=== PATIENT | female | born 1935 | race Caucasian/White ===

== ENCOUNTER 2020-01-21 15:34 | Emergency (ER) | payer MEDICARE, SELFPAY ==
[2020-01-21 15:42] VITALS: BP 110/67; PULSE 80; RESP 17; TEMP 36.9; O2SAT 93; BMI 14.8
--- NOTE | 2020-01-21 15:45 | ED_ITS ---
HPI - Abdominal Pain General: Chief Complaint: Urogenital-Female Stated Complaint: UTI Time Seen by Provider: 01/21/20 15:37 History of Present Illness: HPI narrative: 84-year-old female comes in complaining of she not been able to urinate today denies any flank pain denies any difficulty breathing denies any nausea vomiting diarrhea. No previous history of recurrent UTIs or kidney stones. Patient reports he tried to drink 2 beers to get herself to urinate but that did not work so she came to the emergency room. MD elicited complaint: abdominal pain Location: Suprapubic Severity: mild Quality: cramping Radiation: none Migration to: no migration Exacerbating factors: nothing Relieving factors: nothing Associated Symptoms: Reports no associated symptoms; Denies bloating, chills, coffee ground emesis, constipation, diarrhea, dysuria, fever(s), hematochezia, hematemesis, melena, nausea and vomiting Review of Systems Const: Denies: fever, chills, body aches, change in appetite, fatigue or malaise ENMT: Denies: throat pain, ear pain, nasal discharge or nasal congestion Card: Denies: chest pain, edema, shortness of breath on exertion or shortness of breath when lying down Resp: Denies: shortness of breath, productive cough or non-productive cough GI: Denies: abdominal pain, nausea, vomiting, vomiting blood, coffee grounds in vomit, diarrhea, constipation, bloating, blood in stool or black tarry stool : Reports: difficulty urinating; Denies: flank pain, painful urination, urinary frequency or urinary urgency Skin/Breast: Denies: rash or itching PFS ED PFSH: Social History Smoking and tobacco status: current every day smoker Physical Exam Const: COMMON NORMALS: no apparent distress GENERAL APPEARANCE: cooperative and comfortable ORIENTATION/CONSCIOUSNESS: Yes awake, Yes oriented to person, Yes oriented to place and Yes oriented to time HENMT: COMMON NORMALS: normocephalic, head/scalp atraumatic, hearing grossly normal bilaterally, external ears normal, nasal mucous membranes and turbinates normal, moist oral mucous membranes and oropharynx normal HEAD & SCALP: normocephalic and atraumatic NOSE: nasal mucous membranes and turbinates normal EXTERNAL EAR: Yes external ears normal Eye: COMMON NORMALS: PERRL, EOMs intact bilaterally, conjunctivae normal and no scleral icterus CONJUNCTIVA: Yes conjunctivae normal PUPIL: Yes PERRL Neck/C-Spine: COMMON NORMALS: full ROM, no lymphadenopathy, supple and no JVD Lymph: LYMPHATIC: no lymphadenopathy noted and no lymphedema noted Resp: COMMON NORMALS: normal respiratory effort, no retractions, no use of accessory muscles and clear to auscultation bilaterally AUSCULTATION: clear to auscultation bilaterally Cardio: COMMON NORMALS: no JVD, regular rate, regular rhythm and no murmurs RATE: regular rate RHYTHM: regular rhythm GI: COMMON NORMALS: soft to palpation and no hepatosplenomegaly AUSCULTATION: Yes normoactive bowel sounds PALPATION: Yes soft, No tender, No guarding and Yes no hepatosplenomegaly Extremity: COMMON NORMALS: normal to inspection, normal capillary refill, no clubbing, cyanosis or edema, no calf tenderness and no pedal edema Neuro: SENSORIUM/ORIENTATION: Yes oriented to person, Yes oriented to place and Yes oriented to time Skin: COMMON NORMALS: no rashes or lesions noted GENERAL SKIN EXAM: no rashes or lesions noted Course Vital Signs: Vital signs: Vital Signs Temperature 98.4 F 01/21/20 15:42 Pulse Rate 80 01/21/20 15:46 Respiratory Rate 16 01/21/20 17:02 Blood Pressure 110/67 01/21/20 15:42 Pulse Oximetry 93 01/21/20 15:42 MDM - Abdominal Pain Lab Data: Attestation: I reviewed the patient's lab results. Labs: Lab Results 01/21/20 01/21/20 01/21/20 Range/Units 15:52 15:52 16:55 WBC 8.4 (4.0-10.0) 10^3/ uL RBC 3.97 L (4.1-5.3) 10^6/u L Hgb 12.9 (11.5-15.3) g/dL Hct 40.1 (37.0-47.0) % MCV 101.0 H (81-99) fL MCH 32.5 (28.0-34.0) pg MCHC 32.2 (30.0-36.0) g/dL RDW 12.5 (12.1-15.1) % Plt Count 161 (130-400) 10^3/c mm MPV 10.2 (7.4-10.4) fL Neut % (Auto) 59.4 % Lymph % (Auto) 27.0 % [place] % (Auto) 11.9 % Eos % (Auto) 1.4 % Baso % (Auto) 0.2 % Neut # (Auto) 5.0 (1.8-7.7) 10^3/u L Lymph # (Auto) 2.3 (0.8-4.8) 10^3/u L [place] # (Auto) 1.0 H (0.2-0.9) 10^3/u L Eos # (Auto) 0.1 (0.0-0.8) 10^3/u L Baso # (Auto) 0.0 (0.0-0.1) 10^3/u L Nucleated RBC % (a uto) 0 % Nucleated RBCs # 0.0 /100WBC Sodium 131 L (136-145) mmol/L Potassium 3.0 L (3.5-5.1) mmol/L Chloride 91 L (98-107) mmol/L Carbon Dioxide 23 (22-29) mmol/L Anion Gap 20.0 H (5-19) BUN 8 (8-23) mg/dL Creatinine 0.5 (0.5-0.9) mg/dL Glucose 95 (65-115) mg/dL Calculated Osmolal ity 268 L (285-295) mOsm/k g Calcium 8.8 (8.5-10.5) mg/dL Urine Color [place] (Yellow) Urine Appearance Sl hazy (CLEAR) Urine pH 5 (5-7) Ur Specific Gravit y 1.010 (1.005-1.030) Urine Protein TNP Urine Glucose (UA) Norm (Normal) Urine Ketones Negative (Negative) Urine Blood 2+ H (Negative) Urine Nitrate TNP Urine Bilirubin TNP Prot Sulfosalicyli c Acd Negative (Negative) Urine Urobilinogen TNP Ur Leukocyte Kelsea ase 1+ H (Negative) Urine RBC 5-10 H (0-2) /hpf Urine WBC 40-55 H (0-5) /hpf Ur Squamous Epith Cells 0-4 H (0-5) Ur Transition Epit h Cell 0-4 /hpf Urine Bacteria 4+ H (NONE) Urine Mucus 1+ Discharge Plan Discharge Patient Disposition: Home, Self-Care Clinical Impression: Cystitis Condition: Stable Prescriptions: New Macrobid 100 mg capsule 100 mg PO BID 7 Days Qty: 14 RF: 0 Discharge Orders: Discharge Order (Routine); Ordered 01/21/20 Ordered By: Gordo Santillan Referrals: Max Curtis DO [Primary Care Provider] - Discharge Diet: Usual diet Discharge Activity: Resume usual activity Interventions: ED Discharge Assessment Last Done: 01/21/20 17:45 Coding Level of Care Code ED Television Mechanic for Chg Fwd Exam Comprehensive
[2020-01-21 15:46] VITALS: PULSE 80; RESP 17
[2020-01-21 15:58] LABS: Basophils % 0.2 %; Eosinophils # 0.1 10^3/uL (0.0-0.8); Eosinophils % 1.4 %; Hematocrit 40.1 % (37.0-47.0); Hemoglobin 12.9 g/dL (11.5-15.3); Lymphocytes # 2.3 10^3/uL (0.8-4.8); Mean Corpuscular HGB Conc 32.2 g/dL (30.0-36.0); Mean Corpuscular Hemoglobin 32.5 pg (28.0-34.0); Mean Platelet Volume 10.2 fL (7.4-10.4); Monocytes % 11.9 %; Neutrophils % 59.4 %; Nucleated Red Blood Cells % 0 %; Platelet Count 161 10^3/cmm (130-400); Red Blood Count 3.97 10^6/uL (4.1-5.3); Red Cell Distribution Width 12.5 % (12.1-15.1); White Blood Count 8.4 10^3/uL (4.0-10.0)
--- NOTE | 2020-01-21 16:17 | PC.NURSE ---
Two attempts for straight catheter unsuccessful. Mercedes Myrick, WILLIE at bedside to assist, unable to locate urethra d/t pt small stature. Second nurse to bedside to attempt. Pt tolerated fair.
[2020-01-21 16:26] LABS: Blood Urea Nitrogen 8 mg/dL (8-23); Calcium 8.8 mg/dL (8.5-10.5); Carbon Dioxide 23 mmol/L (22-29); Chloride 91 mmol/L (98-107); Glucose 95 mg/dL (65-115); Osmolality Calculated 268 mOsm/kg (285-295); Sodium 131 mmol/L (136-145)
--- NOTE | 2020-01-21 16:44 | PC.NURSE ---
Unable to get a successful catheterization on pt, pt was able to get up to BSC and void. Pt urine is orange and cloudy. Specimen obtained, labeled and sent to lab. Pt bladder scanned and shows 193ml PVR. Dr Santillan updated.
[2020-01-21 17:02] VITALS: RESP 16
[2020-01-21 17:25] LABS: Urine Appearance SL Hazy (CLEAR); Urine Color Orange (Yellow)
[2020-01-21 17:27] LABS: Blood Urine 2+ (Negative); Glucose Urine UA Norm (Normal); Ketones Urine Negative (Negative); Leukocyte Esterase Urine 1+ (Negative); pH Urine 5 (5-7)
[2020-01-21 17:28] LABS: Add Urine Microscopic? YES; Sulfosalicylic Acid Urine Negative (Negative)
[2020-01-21 17:29] LABS: Bacteria Urine 4+; Mucus Urine 1+; Squamous Epithelial Cell Urine 0-4 (0-5)
[2020-01-21 17:30] LABS: Add Urine Culture? Yes; Transitional Epi Cells Urine 0-4 /hpf; WBC Urine 40-55 /hpf (0-5)
== END 2020-01-21 17:51 | disposition home or self-care (01) ==
PROVIDERS: Emergency Medicine; Emergency Provider Family Medicine; Family Provider Electrodiagnostic Medicine; PCP Electrodiagnostic Medicine
DX: N30.90 Cystitis, unspecified without hematuria (principal); F17.200 Nicotine dependence, unspecified, uncomplicated
CPT/HCPCS: 12345; 36415; 51701; 51798; 80048; 81001; 85025; 87077; 87086; 87186; 99283

== ENCOUNTER 2020-02-15 13:33 | Inpatient (IN) | payer MEDICARE, SELFPAY ==
[2020-02-15] VITALS (8 sets, daily range): BP systolic 83–109; BP diastolic 46–65; PULSE 70–89; RESP 16–18; TEMP 36.6–37.1; O2SAT 90–95; BMI 15.0
--- NOTE | 2020-02-15 13:54 | CT_ITS ---
WS: [id number] CT HEAD NONCONTRAST HISTORY: fall TECHNIQUE: Contiguous axial imaging performed through the brain in 2.5 mm imaging. Bone and soft tiss ue windows. Sagittal and coronal reformats reviewed. All CT scans at [facility] use at ast one of these dose optimization techniques: automated exposure control; mA and/or kV adjustment pe r patient size (includes targeted exams where dose is matched to clinical indication); or iterative r econstruction. DLP: 660.86 mGy.cm COMPARISON: 09/07/2018 No acute intracranial hemorrhage, midline shift or mass effect. Moderate to severe atrophy is symmetric bilaterally with severe chronic white matter disease. No prio r infarcts. No loss of the cabezas-white matter differentiation. Ventricles: Normal size with no hydrocephalus. No inferior displacement of cerebellar tonsils. Paranasal sinuses: As visualized are clear. Mastoid air cells: Small amount of fluid in the RIGHT mastoid air cells. Cerumen in the RIGHT externa l auditory canal. Calvarium and scalp: Defect within the RIGHT temporal bone was present on the prior study and not an acute fracture. Bilateral TM joint arthritis. CT/CT head wo con* [id number] IMPRESSION: 1. No acute intracranial hemorrhage or edema. 2. Moderate to severe atrophy and chronic ischemic disease. 3. No skull fracture.
--- NOTE | 2020-02-15 13:54 | XR_ITS ---
WS: [id number] PORTABLE CHEST HISTORY: fall COMPARISON: 08/06/2019 Lungs are clear and well expanded. No pleural effusion or pneumothorax. Cardiac size: Normal. Mediastinum/Aorta: Partially calcified aorta. Osteopenia. Fusion hardware at the thoracolumbar junction. XR/XR chest 1V portable [id number] IMPRESSION: Partially calcified thoracic aorta. No pneumonia.
--- NOTE | 2020-02-15 13:54 | CT_ITS ---
WS: [id number] CT CERVICAL SPINE HISTORY: fall TECHNIQUE: Contiguous 2.5 mm axial imaging performed through the entire cervical spine. Sagittal and coronal reformats also performed. All CT scans at [facility] use at least one of these do se optimization techniques: automated exposure control; mA and/or kV adjustment per patient size (inc ludes targeted exams where dose is matched to clinical indication); or iterative reconstruction. DLP: 208.83 mGy.cm COMPARISON: 04/12/2018 Straightening and reversal normal cervical lordosis. Complete loss of the disc space at C4-5, C5-6 a nd C6-7. There is very mild anterior wedging of C4 which is similar to the prior study. C3 anterolist hesis by 4.2 mm. C2 anterolisthesis by 3.0 mm. Cystic changes within the base of the odontoid process . These were present on the prior study with mild progression. No acute fracture is identified. Crani ocervical junction is normally aligned. Severe bilateral facet joint arthritis and endplate osteophytes throughout the cervical spine. Multil evel areas of bilateral foraminal stenosis and central stenosis. Most significant stenosis at C4-5, C 5-6 and C6-7. Biapical pulmonary fibrosis. Incompletely visualized but similar to the prior study of 04/12/[address] [facility] [address]/CT cervical spin wo con* [id number] IMPRESSION: 1. No acute cervical spine fracture identified. 2. Severe multilevel spondylosis. Complete loss of disc space at C4-5, C5-6 an d C6-7. 3. Multilevel severe central and bilateral foraminal stenosis as above.
--- NOTE | 2020-02-15 13:54 | XR_ITS ---
WS: [id number] LEFT HIP HISTORY: injury COMPARISON: 07/05/2017 LEFT hip: Long intramedullary taylor throughout the femur. 2 screws stabilize a femoral neck fracture. N o change in position of the hardware. No acute fracture identified. Acute minimally displaced fractures involving the LEFT superior and inferior pubic rami. Deformity of the LEFT iliac wing is similar to the prior examinations. XR/XR hip LT 2-3V wo/w pel* [id number] IMPRESSION: 1. Status post ORIF LEFT femoral neck fracture. No acute fracture identified L EFT hip. 2. Acute LEFT superior and inferior pubic rami fractures. 3. Deformity of the LEFT ilium is similar to prior studies.
--- NOTE | 2020-02-15 13:56 | ED_ITS ---
HPI - Fall General: Chief Complaint: Fall Stated Complaint: hip pain Time Seen by Provider: 02/15/20 13:51 Source: patient Mode of arrival: ambulatory Limitations: no limitations History of Present Illness: HPI Narrative: 84-year-old female who states she fell roughly 1 hour ago. She states she fell and struck her head and her left hip. She has left hip pain and is unable to ambulate. States the pain is sharp in nature. She has had surgery on that hip in the past. She denies any loss of consciousness. complaint: fall Onset (ago): hour(s) Fall from: standing Fall witnessed: yes, by family Loss of consciousness: None Prolonged down time: no Location of injury: head and pelvis Severity: moderate Associated symptoms-after fall: Denies abdominal pain, chest pain, headache(s) or neck pain Review of Systems Const: Denies: fever, chills, body aches or change in appetite Eyes: Denies: blurry vision or eye discomfort ENMT: Denies: throat pain or dental pain Card: Denies: chest pain Resp: Denies: shortness of breath GI: Denies: abdominal pain, nausea, vomiting or diarrhea : Denies: painful urination Musc: Reports: joint pain; Denies: neck pain or back pain Skin/Breast: Denies: rash Neuro: Denies: headache Psych: Denies: depression Jong/Lymph: Denies: easy bruising All/Imm: Denies: hives PFSH ED PFSH: Medical History (Updated 02/15/20 @ 15:49 by Beto Gupta MD) Alcohol use Chronic back pain COPD (chronic obstructive pulmonary disease) Depression DJD (degenerative joint disease) Macular degeneration Peripheral neuropathy Tobacco dependency Surgical History (Updated 02/15/20 @ 15:30 by Denny Campblel MD) History of appendectomy History of cataract surgery History of hernia surgery History of lumbar fusion History of total abdominal hysterectomy and bilateral salpingo-oophorectomy S/P ORIF (open reduction internal fixation) fracture Left hip Family History (Updated 02/15/20 @ 15:31 by Denny Campbell MD) Father Brain tumor Social History (Updated 02/15/20 @ 15:31 by Denny Campbell MD) Smoking and tobacco status: current every day smoker cigarettes Number of cigarettes per day: 6-10 Alcohol intake: current Alcohol type: beer and hard liquor Alcohol use comment: At least 3-4 beers a day, occasional mixed drinks as well with this Substance/Drug Use: never Physical Exam Const: COMMON NORMALS: no apparent distress, oriented x3 and healthy appearing HENMT: COMMON NORMALS: normocephalic HEAD & SCALP: normocephalic OTHER: forehead contusion Eye: COMMON NORMALS: PERRL and EOMs intact bilaterally PUPIL: Yes PERRL Neck/C-Spine: COMMON NORMALS: full ROM and supple Chest: COMMONS NORMALS: inspection of chest normal and palpation of chest normal Resp: COMMON NORMALS: normal respiratory effort, no retractions, no use of accessory muscles and clear to auscultation bilaterally AUSCULTATION: clear to auscultation bilaterally Cardio: COMMON NORMALS: regular rate, regular rhythm and no murmurs RATE: regular rate RHYTHM: regular rhythm GI: COMMON NORMALS: normal to inspection, nondistended, normoactive bowel sounds, soft to palpation, non-tender and no masses PALPATION: Yes soft Extremity: NARRATIVE EXTREMITY EXAM: tenderness over left hip Neuro: COMMON NORMALS: oriented x3, moves all extremities and no focal motor deficits Psych: COMMON NORMALS: mental status grossly normal, thought process normal and cooperative THOUGHT PROCESS: normal thought process Skin: COMMON NORMALS: no rashes or lesions noted and no wounds GENERAL SKIN EXAM: no rashes or lesions noted Course Vital Signs: Vital signs: Vital Signs Temperature 97.8 F 02/15/20 13:49 Pulse Rate 70 02/15/20 13:49 Respiratory Rate 18 02/15/20 14:16 Blood Pressure 109/57 02/15/20 13:49 Pulse Oximetry 95 02/15/20 13:49 MDM - Fall MDM Narrative: Medical decision making narrative: Patient presents here with pelvic rami fracture after a fall. Patient's head CT and C-spine CT are negative. Patient's chest x-ray is negative as well. Patient is unable to ambulate at this time. I spoke to hospitalist Dr. Campbell who will admit hospital spoke to orthopedic Dr. Cardenas who is consulted. Lab Data: Labs: Lab Results 02/15/20 02/15/20 Range/Units 14:42 14:42 WBC 7.5 (4.0-10.0) 10^3/ uL RBC 4.05 L (4.1-5.3) 10^6/u L Hgb 13.0 (11.5-15.3) g/dL Hct 41.2 (37.0-47.0) % MCV 101.7 H (81-99) fL MCH 32.1 (28.0-34.0) pg MCHC 31.6 (30.0-36.0) g/dL RDW 13.1 (12.1-15.1) % Plt Count 158 (130-400) 10^3/c mm MPV 10.4 (7.4-10.4) fL Neut % (Auto) 61.3 % Lymph % (Auto) 26.5 % [place] % (Auto) 7.7 % Eos % (Auto) 3.2 % Baso % (Auto) 0.5 % Neut # (Auto) 4.6 (1.8-7.7) 10^3/u L Lymph # (Auto) 2.0 (0.8-4.8) 10^3/u L [place] # (Auto) 0.6 (0.2-0.9) 10^3/u L Eos # (Auto) 0.2 (0.0-0.8) 10^3/u L Baso # (Auto) 0.0 (0.0-0.1) 10^3/u L Nucleated RBC % (a uto) 0 % Nucleated RBCs # 0.0 /100WBC Sodium 140 (136-145) mmol/L Potassium 3.7 (3.5-5.1) mmol/L Chloride 101 (98-107) mmol/L Carbon Dioxide 29 (22-29) mmol/L Anion Gap 13.7 (5-19) BUN 10 (8-23) mg/dL Creatinine 0.8 (0.5-0.9) mg/dL Glucose 101 (65-115) mg/dL Calculated Osmolal ity 286 (285-295) mOsm/k g Calcium 9.5 (8.5-10.5) mg/dL Imaging Data^: xr l hip: Radiologist's impression: [address] [address] XRay Report Signed Patient: Erin Sage Unit #: [id number] : 1935 Age/Sex: 84 / F ADM Date: 02/15/20 Loc: ER Room/Bed: Attending Dr: Ordering Provider/Ordering MD: Beto Gupta MD Date of Service: 02/15/20 Procedure(s): XR hip LT 2-3V wo/w pel* [id number] Accession Number(s): [id number] Report Number: [id number] WS: [id number] LEFT HIP HISTORY: injury COMPARISON: 07/05/2017 LEFT hip: Long intramedullary taylor throughout the femur. 2 screws stabilize a femoral neck fracture. No change in position of the hardware. No acute fracture identified. Acute minimally displaced fractures involving the LEFT superior and inferior pubic rami. Deformity of the LEFT iliac wing is similar to the prior examinations. XR/XR hip LT 2-3V wo/w pel* [id number] IMPRESSION: 1. Status post ORIF LEFT femoral neck fracture. No acute fracture identified LEFT hip. 2. Acute LEFT superior and inferior pubic rami fractures. 3. Deformity of the LEFT ilium is similar to prior studies. CXR: Radiologist's impression: [place] [address] XRay Report Signed Patient: Erin Sage Unit #: [id number] : 1935 Age/Sex: 84 / F ADM Date: 02/15/20 Loc: ER Room/Bed: Attending Dr: Ordering Provider/Ordering MD: Beto Gupta MD Date of Service: 02/15/20 Procedure(s): XR chest 1V portable [id number] Accession Number(s): [id number] Report Number: [id number] WS: [id number] PORTABLE CHEST HISTORY: fall COMPARISON: 08/06/2019 Lungs are clear and well expanded. No pleural effusion or pneumothorax. Cardiac size: Normal. Mediastinum/Aorta: Partially calcified aorta. Osteopenia. Fusion hardware at the thoracolumbar junction. XR/XR chest 1V portable [id number] IMPRESSION: Partially calcified thoracic aorta. No pneumonia. CT Head: Radiologist's impression: [address] [place] [address] CT Scan Report Signed Patient: Erin Sage Unit #: [id number] : 1935 Age/Sex: 84 / F ADM Date: 02/15/20 Loc: ER Room/Bed: Attending Dr: Ordering Provider/Ordering MD: Beto Gupta MD Date of Service: 02/15/20 Procedure(s): CT head wo con* [id number] Accession Number(s): [id number] Report Number: [id number] WS: [id number] CT HEAD NONCONTRAST HISTORY: fall TECHNIQUE: Contiguous axial imaging performed through the brain in 2.5 mm imaging. Bone and soft tissue windows. Sagittal and coronal reformats reviewed. All CT scans at [facility] use at least one of these dose optimization techniques: automated exposure control; mA and/or kV adjustment per patient size (includes targeted exams where dose is matched to clinical indication); or iterative reconstruction. DLP: 660.86 mGy.cm COMPARISON: 09/07/2018 No acute intracranial hemorrhage, midline shift or mass effect. Moderate to severe atrophy is symmetric bilaterally with severe chronic white matter disease. No prior infarcts. No loss of the cabezas-white matter differentiation. Ventricles: Normal size with no hydrocephalus. No inferior displacement of cerebellar tonsils. Paranasal sinuses: As visualized are clear. Mastoid air cells: Small amount of fluid in the RIGHT mastoid air cells. Cerumen in the RIGHT external auditory canal. Calvarium and scalp: Defect within the RIGHT temporal bone was present on the prior study and not an acute fracture. Bilateral TM joint arthritis. CT/CT head wo con* [id number] IMPRESSION: 1. No acute intracranial hemorrhage or edema. 2. Moderate to severe atrophy and chronic ischemic disease. 3. No skull fracture. cspine: Radiologist's impression: [address] [place] [address] CT Scan Report Signed Patient: Erin Sage Unit #: [id number] : 1935 Age/Sex: 84 / F ADM Date: 02/15/20 Loc: ER Room/Bed: Attending Dr: Ordering Provider/Ordering MD: Beto Gupta MD Date of Service: 02/15/20 Procedure(s): CT cervical spin wo con* [id number] Accession Number(s): [id number] Report Number: [id number] WS: [id number] CT CERVICAL SPINE HISTORY: fall TECHNIQUE: Contiguous 2.5 mm axial imaging performed through the entire cervical spine. Sagittal and coronal reformats also performed. All CT scans at [facility] use at least one of these dose optimization techniques: automated exposure control; mA and/or kV adjustment per patient size (includes targeted exams where dose is matched to clinical indication); or iterative reconstruction. DLP: 208.83 mGy.cm COMPARISON: 04/12/2018 Straightening and reversal normal cervical lordosis. Complete loss of the disc space at C4-5, C5-6 and C6-7. There is very mild anterior wedging of C4 which is similar to the prior study. C3 anterolisthesis by 4.2 mm. C2 anterolisthesis by 3.0 mm. Cystic changes within the base of the odontoid process. These were present on the prior study with mild progression. No acute fracture is identified. Craniocervical junction is normally aligned. Severe bilateral facet joint arthritis and endplate osteophytes throughout the cervical spine. Multilevel areas of bilateral foraminal stenosis and central stenosis. Most significant stenosis at C4-5, C5-6 and C6-7. Biapical pulmonary fibrosis. Incompletely visualized but similar to the prior study of 04/12/[address]/CT cervical spin wo con* [id number] IMPRESSION: 1. No acute cervical spine fracture identified. 2. Severe multilevel spondylosis. Complete loss of disc space at C4-5, C5-6 and C6-7. 3. Multilevel severe central and bilateral foraminal stenosis as above. Discharge Plan Discharge Patient Disposition: Admitted As Inpatient Clinical Impression: Fall Qualifiers: Encounter type: initial encounter Qualified Code(s): W19.XXXA - Unspecified fall, initial encounter Bilateral fracture of pubic rami Qualifiers: Encounter type: initial encounter Fracture type: closed Qualified Code(s): S32.591A - Other specified fracture of right pubis, initial encounter for closed fracture Condition: Stable Referrals: Max Curtis, [Primary Care Provider] - Coding Level of Care Code ED [employer] Consultant for Chg Fwd Exam Comprehensive
[2020-02-15] MEDS: morphine 4 mg/mL SDV 1 mL IVP (14:16)
[2020-02-15 14:51] LABS: Basophils % 0.5 %; Eosinophils # 0.2 10^3/uL (0.0-0.8); Eosinophils % 3.2 %; Hematocrit 41.2 % (37.0-47.0); Lymphocytes % 26.5 %; Mean Corpuscular HGB Conc 31.6 g/dL (30.0-36.0); Mean Corpuscular Hemoglobin 32.1 pg (28.0-34.0); Mean Corpuscular Volume 101.7 fL (81-99); Mean Platelet Volume 10.4 fL (7.4-10.4); Monocytes # 0.6 10^3/uL (0.2-0.9); Monocytes % 7.7 %; Neutrophils # 4.6 10^3/uL (1.8-7.7); Neutrophils % 61.3 %; Nucleated Red Blood Cells % 0 %; Platelet Count 158 10^3/cmm (130-400); Red Blood Count 4.05 10^6/uL (4.1-5.3); Red Cell Distribution Width 13.1 % (12.1-15.1); White Blood Count 7.5 10^3/uL (4.0-10.0)
[2020-02-15 15:03] LABS: Anion Gap 13.7 (5-19); Blood Urea Nitrogen 10 mg/dL (8-23); Calcium 9.5 mg/dL (8.5-10.5); Carbon Dioxide 29 mmol/L (22-29); Chloride 101 mmol/L (98-107); Glucose 101 mg/dL (65-115); Osmolality Calculated 286 mOsm/kg (285-295); Potassium 3.7 mmol/L (3.5-5.1); Sodium 140 mmol/L (136-145)
[2020-02-15 15:10] LABS: Slide Review Slide Review Perform
--- NOTE | 2020-02-15 15:24 | P.HP_ITS ---
Providers/Chief Complaint Primary Care Provider: Max Curtis DO Chief Complaint: hip pain History of Present Illness Erin Sage is a 84 year old female that presents to the hospital with history of fall, approximately at noon. She reports she fell over a step falling on the ground outside. She denies any loss of consciousness. She does report she hit her head. She denies any head pain or neck pain currently. She denies any chest pain. She does report that her left groin hurts. She reports it radiates a little bit down her leg. She reports increased pain with trying to bear weight, moving the left leg. She denies any recent fevers. She did have an ER visit on January 20 for UTI. She denies any burning with urination currently. She states she has been not eating quite as well as she should. She tries to drink fluids. She does drink a fair amount of alcohol. No exposure to COVID, cough, wheezing, etc. Review of Systems General: Reports: 10 or more systems reviewed and unremarkable except in HPI a nd below Const: Denies: fever or chills Eyes: Denies: change in vision ENMT: Denies: throat pain Card: Denies: chest pain Resp: Denies: shortness of breath GI: Denies: abdominal pain : Denies: flank pain or difficulty urinating Musc: Reports: extremity pain; Denies: neck pain Neuro: Denies: headache Psych: Denies: anxiety Endo: Denies: excessive urination Jong/Lymph: Denies: easy bruising All/Imm: Denies: hives Medications/Allergies Home Medications Medication Instructions Recorded Confirmed Last Taken Type citalopram 20 mg PO DAILY 02/15/20 02/15/20 Unknown History gabapentin 600 mg PO QID 02/15/20 02/15/20 02/15/20 History Allergies Allergy/AdvReac Type Severity Reaction Status Date / Time No Known Allergies Allergy Verified 01/21/20 15:45 PFSH Acute PFSH: Medical History (Updated 02/15/20 @ 15:34 by Denny Campbell MD) Alcohol use Chronic back pain COPD (chronic obstructive pulmonary disease) Depression DJD (degenerative joint disease) Macular degeneration Peripheral neuropathy Tobacco dependency Surgical History (Updated 02/15/20 @ 15:30 by Denny Campbell MD) History of appendectomy History of cataract surgery History of hernia surgery History of lumbar fusion History of total abdominal hysterectomy and bilateral salpingo-oophorectomy S/P ORIF (open reduction internal fixation) fracture Left hip Family History (Updated 02/15/20 @ 15:31 by Denny Campbell MD) Father Brain tumor Social History (Updated 02/15/20 @ 15:31 by Denny Campbell MD) Smoking and tobacco status: current every day smoker cigarettes Number of cigarettes per day: 6-10 Alcohol intake: current Alcohol type: beer and hard liquor Alcohol use comment: At least 3-4 beers a day, occasional mixed drinks as well with this Substance/Drug Use: never Vitals/I&O/Wt Last Vital Signs Temp 97.8 F 02/15/20 13:49 Pulse 70 02/15/20 13:49 Resp 18 02/15/20 14:16 BP 109/57 02/15/20 13:49 Pulse Ox 95 02/15/20 13:49 Weight last 48 hrs Weight 34.927 kg Physical Exam Narrative: EXAM NARRATIVE: General exam is a conversant, pleasant white female with complaints of left hip pain but in no obvious distress HEENT: Pupils equally round. Arcus senilis is seen. Oropharynx is clear. Small laceration noted forehead. Neck is supple no lymphadenopathy or thyromegaly Cardiovascular regular rate and rhythm without murmur, no S3 or S4 Lungs clear no wheezing or crackles Abdomen is soft with positive bowel sounds. No obvious organomegaly was deferred. Calvo noted. Extremities no cyanosis clubbing or edema. Some bruising is noted around the left knee but no significant tenderness. Certainly pain with any movement of the left leg in the left groin. No obvious deformity. Neuro no obvious focal deficits Skin see comments regarding bruising above Data : 02/15/20 14:42 02/15/20 14:42 Other data: Pelvis film demonstrates left inferior and superior pubic rami fracture. Hip prosthesis intact. Chest x-ray with no infiltrate Head CT with moderate to severe atrophy, no fracture or subdural Cervical spine with DJD/foraminal stenosis. No fracture MCV slightly elevated A&P Assessment and plan (1) Pelvic fracture: Left superior and inferior iliac spine fracture. Admission Will need discharge planning evaluation PT and OT evaluations Pain control, morphine, oxycodone, ibuprofen as needed. Monitor for oversedation. Currently she cannot ambulate secondary to pain. Fall precautions Orthopedic consultation has been arranged. I doubt surgical intervention is needed. Status: Acute (2) Fall: Therapy evaluations May need skilled care. Will evaluate Check urinalysis Status: Acute (3) Tobacco dependency: Encourage cessation Status: Acute (4) Alcohol use: Thiamine Check B12 level, folate level secondary to macrocytosis. Check TSH Status: Acute Additional A&P Information Laceration, forehead, outside in a relatively dirty environment. Nursing will clean wound. Tetanus booster. History of peripheral neuropathy History of COPD with no evidence of exacerbation. DuoNeb as needed Advanced age Multiple other medical problems as outlined in past medical history SCDs Full code Avoid anticoagulation currently secondary to acute pelvic fracture Attestations Medical Necessity Statement*: Will need greater than 2 midnight stay for evaluation and treatment of Rl fracture following fall requiring therapy evaluation, pain control. Time Spent in Patient Care: Greater than 35 minutes Coding Level of Care Code Acute Balance Bridge Inspector for [facility] Fwd Diagnoses Pelvic fracture S32.9XXA Fall W19.XXXA Tobacco dependency F17.200 Alcohol use Z72.89
[2020-02-15] MEDS: tetanus-diphtheria tox (adult) 0.5 mL SDV IM (15:42)
[2020-02-15 16:05] LABS: Thyroid Stimulating Hormone 7.98 uIU/mL (0.27-4.20); Vitamin B12 308 pg/mL (232-1245)
[2020-02-15 16:21] LABS: Alanine Aminotransferase 16 U/L (0-33); Albumin Level 4.5 g/dL (3.5-5.2); Alkaline Phosphatase 83 IU/L (35-105); Aspartate Amino Transferase 24 U/L (0-32); Globulin 2.1 g/dL (1.3-4.6); Total Bilirubin 0.5 mg/dL (0.15-1.2); Total Protein 6.6 g/dL (6.6-8.7)
[2020-02-15 16:26] LABS: Protein Urine Neg (Negative); Specific Gravity, Urine 1.005 (1.005-1.030); Urine Appearance Clear (CLEAR); Urine Color Yellow (Yellow); pH Urine 7 (5-7)
[2020-02-15 16:27] LABS: Add Urine Culture? No; Bacteria Urine 1+; Bilirubin Urine Neg (NEGATIVE); Blood Urine 3+ (Negative); Glucose Urine UA Norm (Normal); Ketones Urine Negative (Negative); Leukocyte Esterase Urine Negative (Negative); Nitrate Urine Negative (Negative); Renal Epithelial Cells Urine 0-4 /hpf; Squamous Epithelial Cell Urine 0-4 (0-5); Urobilinogen Urine Norm (Negative); WBC Urine 0-4 /hpf (0-5)
[2020-02-15] MEDS: oxyCODONE-APAP 5-325 mg Tablet 1 TAB PO (18:18)
[2020-02-15] MEDS: gabapentin 300 mg Capsule 600 MG PO (20:39)
[2020-02-15] MEDS: morphine 4 mg/mL SDV 1 mL 2 MG IVP (21:30)
[2020-02-15] MEDS: ibuprofen 200 mg Tablet 400 MG PO (23:20)
[2020-02-16] VITALS (10 sets, daily range): BP systolic 87–120; BP diastolic 52–62; PULSE 68–80; RESP 16–24; TEMP 36.4–37.5; O2SAT 90–97
[2020-02-16] MEDS: oxyCODONE-APAP 5-325 mg Tablet 1 TAB PO ×4 (04:28→22:47)
[2020-02-16 05:18] LABS: Folate Level 8.4 ng/mL (4.8-37.3)
--- NOTE | 2020-02-16 08:01 | PM.CONSULT ---
Providers/Reason For Consult Consulting Physican/Specialty*: Jose Mccallumhseferino PRUITT Orthopedic surgery Reason for Consult*: Pelvic fracture Attending Physician: Denny Campbell MD Primary Care Provider: Max Curtis DO History of Present Illness History of Present Illness Erin Sage is a 84 year old female who lives at home with her son. She fell at home and sustained a left-sided inferior superior pubic ramus fractures. She had a history of intramedullary nailing of intertrochanteric fracture of her left hip approximately 6 years ago. She has a fracture of her left wrist that she sustained 3 or 4 years ago and has a residual deformity. Despite the deformity of her left wrist that she is able to weight-bear on that wrist using a walker. At rest at the present time she has minimal discomfort. No attempts have been made to work on transfer training. She states that she has a walker at home. The bathroom that she uses is approximately 10 feet from her bed. If at all possible she would prefer not going to a senior living facility. Review of Systems Const: Denies: fever or chills Card: Denies: chest pain, syncope or shortness of breath when lying down Resp: Denies: shortness of breath or productive cough GI: Denies: abdominal pain, nausea or vomiting Musc: Reports: other (Pain in area of her pelvic fracture which is mild at the present time while at bedrest) Psych: Denies: anxiety or change in appetite Meds/Allergies Home Medications and Allergies Home Medications Medication Instructions Recorded Confirmed Last Taken Type citalopram 20 mg PO DAILY 02/15/20 02/15/20 Unknown History gabapentin 600 mg PO QID 02/15/20 02/15/20 02/15/20 History Allergies Allergy/AdvReac Type Severity Reaction Status Date / Time No Known Allergies Allergy Verified 01/21/20 15:45 Current Medications Current Medications Generic Name Dose Route Start Last Admin Trade Name Freq PRN Reason Stop Dose Admin Gabapentin 600 mg 02/15/20 21:00 02/15/20 20:39 Neurontin PO 600 mg QID JESSICA Administration Ibuprofen 400 mg 02/15/20 17:13 02/15/20 23:20 Motrin PO 400 mg Q6H PRN Administration Mild/Mod Pain Or Temp >/= 101 Morphine Sulfate 2 mg 02/15/20 17:13 02/15/20 21:30 Morphine IVP 2 mg Q4H PRN Administration SEVERE PAIN Oxycodone/Acetaminophen 1 tab 02/15/20 17:13 02/16/20 04:28 Percocet 5-325 Mg PO 1 tab Q4H PRN Administration SEVERE PAIN PFSH Acute PFSH: Medical History Alcohol use Chronic back pain COPD (chronic obstructive pulmonary disease) Depression DJD (degenerative joint disease) Macular degeneration Peripheral neuropathy Tobacco dependency Surgical History History of appendectomy History of cataract surgery History of hernia surgery History of lumbar fusion History of total abdominal hysterectomy and bilateral salpingo-oophorectomy S/P ORIF (open reduction internal fixation) fracture Left hip Family History Father Brain tumor Social History Smoking and tobacco status: current every day smoker cigarettes Number of cigarettes per day: 6-10 Alcohol intake: current Alcohol type: beer and hard liquor Alcohol use comment: At least 3-4 beers a day, occasional mixed drinks as well with this Substance/Drug Use: never Vitals/I&O/Wt Last Vital Signs Temp 99.2 F 02/16/20 07:08 Pulse 79 02/16/20 07:08 Resp 16 02/16/20 07:08 BP 87/52 02/16/20 07:08 Pulse Ox 91 02/16/20 07:08 02/15/20 02/16/20 02/16/20 22:59 06:59 14:59 Intake Total 360 / 360 200 / 560 Balance 360 / 360 200 / 560 Weight last 48 hrs Weight 77 lb Physical Exam Const: COMMON NORMALS: no apparent distress GENERAL APPEARANCE: well kempt; not in distress, not anxious and not lethargic NUTRITIONAL APPEARANCE: thin ORIENTATION/CONSCIOUSNESS: Yes awake; not confused, not obtunded and not lethargic HENMT: COMMON NORMALS: normocephalic, head/scalp atraumatic and hearing grossly normal bilaterally HEAD & SCALP: normal to inspection, normocephalic and atraumatic; no raccoon eyes Neck/C-Spine: COMMON NORMALS: supple and no JVD Resp: COMMON NORMALS: normal respiratory effort, no retractions, no use of accessory muscles and clear to auscultation bilaterally EFFORT & INSPECTION: Yes able to speak in complete sentences AUSCULTATION: clear to auscultation bilaterally Cardio: COMMON NORMALS: no JVD, regular rate, regular rhythm, S1 normal heart sound and S2 normal heart sound RATE: regular rate RHYTHM: regular rhythm HEART SOUNDS: S1 normal and S2 normal GI: COMMON NORMALS: soft to palpation, non-tender and no masses PALPATION: Yes soft Extremity: RIGHT LOWER EXTREMITY: Yes hip joint (No pain with logroll) and Yes lower leg Right lower leg: Yes special tests Right lower leg special tests: Constantin's sign: Negative LEFT LOWER EXTREMITY: Yes hip joint (No pain with logroll) and Yes lower leg Left lower leg: Yes special tests Left lower leg special tests: Constantin's sign: Negative Neuro: SENSORIUM/ORIENTATION: No lethargic Psych: APPEARANCE: Yes well kempt Urinary Catheter Management^: Calvo: Cath Placed During This Visit: yes Reason for Continuing Indwelling Catheter: Required Immobilization for Trauma or Surgery or Anesthesia Urinary Catheter Date of Insertion: 02/15/20 Urinary Catheter Time of Insertion: 15:40 A&P Assessment and plan (1) Pelvic fracture: 84-year-old white female who fell at home sustaining left-sided inferior superior pubic ramus fractures. This constitutes a fracture of the pelvic ring. The fracture can be managed conservatively i.e. without manipulation. Patient will be allowed weightbearing as tolerated. Recommend her following up in the office. Pain control and prevention of constipation is paramount. Patient would like to go home which can potentially be performed with home health aide as well as physical therapy if the family can provide adequate support. Patient would follow-up in the orthopedic clinic in 1 month's time for x-rays of her pelvis. It does not appear that she has any acute injury to her previously stabilized left intertrochanteric hip fracture with a long intramedullary nail. Recommend VTE prophylaxis until she is return to baseline activity from before her injury. Status: Acute (2) Fall: Status: Acute Qualifiers: Encounter type: initial encounter Qualified Code(s): W19.XXXA - Unspecified fall, initial encounter Coding Level of Care Code Acute Warp Dyeing Tender for [facility] Fwd Diagnoses Pelvic fracture S32.9XXA Fall W19.XXXA Encounter type: initial encounter
[2020-02-16] MEDS: citalopram 20 mg Tablet PO (08:09)
[2020-02-16] MEDS: thiamine 100 mg Tablet PO (08:09)
[2020-02-16] MEDS: gabapentin 300 mg Capsule 600 MG PO ×4 (08:14→18:46)
[2020-02-16] MEDS: ibuprofen 200 mg Tablet 400 MG PO ×2 (08:17→20:45)
[2020-02-16] MEDS: ondansetron 2 mg/ML SDV 2 mL 4 MG IVP (09:51)
--- NOTE | 2020-02-16 10:18 | PC.PT ---
Patient needs bedside commode for toileting is unable to ambulate into bathroom, also needs Marques front wheel walker with glide tips to assist with transfers and less and pain of same, and assist with healing; both have been ordered
--- NOTE | 2020-02-16 10:26 | PC.NURSE ---
Patient had emesis of 300. Zofran Iv given. Patient sipped on Sprite and ate two saltine crackers. Patient tolerated, and denied any nausea.
[2020-02-16] MEDS: heparin 5,000 unit/mL INJ 1 mL 5000 UNIT SUBCUT ×2 (11:04→22:47)
--- NOTE | 2020-02-16 19:02 | P.PN_ITS ---
Subjective Subjective: Interval history: Erin reports she is doing okay. She still has some pain but it is improved. Does not want the catheter out yet as she does not believe she can get up and down to the bedside commode. Medications: Reviewed: Yes Vitals/I&O/Wt Last Vital Signs Temp 99.5 F 02/16/20 15:25 Pulse 75 02/16/20 15:25 Resp 24 H 02/16/20 18:37 BP 95/62 02/16/20 15:25 Pulse Ox 92 02/16/20 15:25 02/16/20 02/16/20 02/16/20 06:59 14:59 22:59 Intake Total 200 / 560 100 / 100 240 / 340 Output Total 300 / 300 1000 / 1300 Balance 200 / 560 -200 / -200 -760 / -960 Weight last 48 hrs Weight 34.927 kg Physical Exam Narrative: EXAM NARRATIVE: General exam is no apparent distress Cardiovascular regular rate and rhythm without murmur Lungs clear Abdomen is soft with positive bowel sounds Extremities no cyanosis clubbing or edema Musculoskeletal, still with significant pain with movement of the left leg Urinary Catheter Management^: Calvo: Cath Placed During This Visit: yes Reason for Continuing Indwelling Catheter: Required Immobilization for Trauma or Surgery or Anesthesia Urinary Catheter Date of Insertion: 02/15/20 Urinary Catheter Time of Insertion: 15:40 Data : 02/15/20 14:42 02/15/20 14:42 A&P Assessment and plan (1) Pelvic fracture: Left superior and inferior iliac spine fracture. Continue PT and OT Depending upon performance may need skilled care, versus home with home health and home physical therapy. Discussed in detail with son. Continue oxycodone, ibuprofen, Tylenol as needed. She does not appear to need morphine Appreciate orthopedic consultation, no surgery indicated Status: Acute (2) Fall: Continue therapies Status: Acute Qualifiers: Encounter type: initial encounter Qualified Code(s): W19.XXXA - Unspecified fall, initial encounter (3) Tobacco dependency: Encourage cessation Status: Acute (4) Alcohol use: Continue thiamine B12 normal TSH slightly high consistent with subclinical hypothyroidism Status: Acute Additional A&P Information Laceration, forehead,. No evidence of infection. She received a tetanus booster History of peripheral neuropathy History of COPD with no evidence of exacerbation. DuoNeb as needed Advanced age Multiple other medical problems as outlined in past medical history Full code Heparin for DVT prophylaxis Attestations Medical Necessity Statement*: Needs continued hospitalization, secondary to pain, unsafe for ambulation and transfers at this time. Coding Level of Care Code Acute Stack Yield Engineer for [facility] Fwd Diagnoses Pelvic fracture S32.9XXA Fall W19.XXXA Encounter type: initial encounter Tobacco dependency F17.200 Alcohol use Z72.89
[2020-02-17] VITALS: BP 75/40; PULSE 78; RESP 18; TEMP 37.3; O2SAT 90
[2020-02-17 03:57] VITALS: BP 77/52; PULSE 74; RESP 18; TEMP 36.6; O2SAT 90
[2020-02-17 07:50] VITALS: BP 86/49; PULSE 84; RESP 17; TEMP 37.8; O2SAT 92
[2020-02-17] MEDS: gabapentin 300 mg Capsule 600 MG PO ×4 (08:31→22:34)
[2020-02-17] MEDS: citalopram 20 mg Tablet PO (08:32)
[2020-02-17] MEDS: thiamine 100 mg Tablet PO (08:32)
[2020-02-17] MEDS: heparin 5,000 unit/mL INJ 1 mL 5000 UNIT SUBCUT ×2 (10:47→23:19)
--- NOTE | 2020-02-17 11:13 | P.PN_ITS ---
Subjective Subjective: Interval history: Erin reports she has some pain. No other complaints. Reports she is not eating much but trying to drink. Medications: Reviewed: Yes Vitals/I&O/Wt Last Vital Signs Temp 100.0 F H 02/17/20 07:50 Pulse 84 02/17/20 07:50 Resp 17 02/17/20 07:50 BP 86/49 02/17/20 07:50 Pulse Ox 92 02/17/20 07:50 02/16/20 02/17/20 02/17/20 22:59 06:59 14:59 Intake Total 340 / 440 240 / 240 Output Total 1000 / 1300 350 / 1650 Balance -660 / -860 -350 / -1210 240 / 240 Weight last 48 hrs Weight 34.927 kg Physical Exam Narrative: EXAM NARRATIVE: General exam is no apparent distress Cardiovascular regular rate and rhythm without murmur Lungs clear Abdomen is soft with positive bowel sounds Extremities no cyanosis clubbing or edema Musculoskeletal, still with pain in the left leg with movement Urinary Catheter Management^: Calvo: Cath Placed During This Visit: yes Reason for Continuing Indwelling Catheter: Required Immobilization for Trauma or Surgery or Anesthesia Urinary Catheter Date of Insertion: 02/15/20 Urinary Catheter Time of Insertion: 15:40 Data : 02/15/20 14:42 02/15/20 14:42 A&P Assessment and plan (1) Pelvic fracture: Left superior and inferior iliac spine fracture. Continue PT and OT Depending upon performance may need skilled care, versus home with home health and home physical therapy. Discussed in detail with son. Continue oxycodone, ibuprofen, Tylenol as needed. Appreciate orthopedic consultation, no surgery indicated Discontinue Calvo. Status: Acute (2) Fall: Continue therapies Status: Acute Qualifiers: Encounter type: initial encounter Qualified Code(s): W19.XXXA - Unspecified fall, initial encounter (3) Tobacco dependency: Encourage cessation Status: Acute (4) Alcohol use: Continue thiamine B12 normal TSH slightly high consistent with subclinical hypothyroidism. Repeat TSH in 4 weeks recommended. Status: Acute Additional A&P Information Laceration, forehead,. No evidence of infection. She received a tetanus booster History of peripheral neuropathy History of COPD with no evidence of exacerbation. DuoNeb as needed Advanced age Multiple other medical problems as outlined in past medical history Full code Heparin for DVT prophylaxis Attestations Medical Necessity Statement*: At this point needs continued hospital stay is unsafe for transfer on her own. We will see how therapy evaluations go today but she may indeed need to end up transitioning to skilled care for further rehabilitation. Coding Level of Care Code Acute Chief Controller Center for [facility] Fwd Diagnoses Pelvic fracture S32.9XXA Fall W19.XXXA Encounter type: initial encounter Tobacco dependency F17.200 Alcohol use Z72.89
[2020-02-17 11:22] VITALS: BP 85/51; PULSE 80; RESP 16; TEMP 36.9; O2SAT 90
--- NOTE | 2020-02-17 11:31 | SUR.HOLD ---
Patient with OT receiving a shower. Patient's oxygen saturation lowered to 88%, placed patient on O2-3l NC. Patient's Sats are within 97-98% Will notify her MD.
--- NOTE | 2020-02-17 11:40 | PM.PN ---
Subjective Subjective: Interval history: 84-year-old white female being treated in close conservative fashion without manipulation for her pelvic ring fracture. She sustained left-sided superior and inferior pubic ramus fractures as result of a fall. She continues to have minimal discomfort. She states she was able to tolerate transfer from bed to chair. Spoke with the treating hospitalist today and states that she has a son that potentially could care for her at home. We will work towards that and with possible discharge home with follow-up in the office to assess her fracture healing in one month. The patient is weightbearing as tolerated on her left lower extremity as well as her right lower extremity. Vitals/I&O/Wt Last Vital Signs Temp 98.4 F 02/17/20 11:22 Pulse 80 02/17/20 11:22 Resp 16 02/17/20 11:22 BP 85/51 02/17/20 11:22 Pulse Ox 90 02/17/20 11:22 02/16/20 02/17/20 02/17/20 22:59 06:59 14:59 Intake Total 340 / 440 240 / 240 Output Total 1000 / 1300 350 / 1650 Balance -660 / -860 -350 / -1210 240 / 240 Weight last 48 hrs Weight 77 lb Physical Exam Const: COMMON NORMALS: no apparent distress and alert GENERAL APPEARANCE: cooperative Neck/C-Spine: COMMON NORMALS: no JVD Resp: COMMON NORMALS: normal respiratory effort and no retractions AUSCULTATION: no crackles, no rales, no rhonchi and no wheezes Cardio: COMMON NORMALS: no JVD, regular rate, regular rhythm, S1 normal heart sound and S2 normal heart sound RATE: regular rate RHYTHM: regular rhythm HEART SOUNDS: S1 normal and S2 normal GI: COMMON NORMALS: normal to inspection, nondistended, normoactive bowel sounds, soft to palpation and non-tender PALPATION: Yes soft Neuro: SENSORIUM/ORIENTATION: Yes alert Urinary Catheter Management^: Calvo: Cath Placed During This Visit: yes Reason for Continuing Indwelling Catheter: Required Immobilization for Trauma or Surgery or Anesthesia Urinary Catheter Date of Insertion: 02/15/20 Urinary Catheter Time of Insertion: 15:40 Data : 02/15/20 14:42 02/15/20 14:42 Attestations Medical Necessity Statement*: patient requires continued inpatient level care for pain control and mobilization while working towards appropriate and safe disposition of the patient Time Spent in Patient Care: less than 15 minutes (>than 50% of time spent in counselling and/or direct pt care on unit). Coding Level of Care Code Acute Hotel Staff Member for [facility]
[2020-02-17 12:21] LABS: Basophils # 0.1 10^3/uL (0.0-0.1); Basophils % 0.7 %; Eosinophils # 0.3 10^3/uL (0.0-0.8); Eosinophils % 3.4 %; Hematocrit 34.9 % (37.0-47.0); Lymphocytes # 2.8 10^3/uL (0.8-4.8); Lymphocytes % 33.9 %; Mean Corpuscular HGB Conc 31.5 g/dL (30.0-36.0); Mean Corpuscular Hemoglobin 32.6 pg (28.0-34.0); Mean Corpuscular Volume 103.6 fL (81-99); Mean Platelet Volume 11.1 fL (7.4-10.4); Monocytes # 0.8 10^3/uL (0.2-0.9); Monocytes % 9.7 %; Neutrophils # 4.3 10^3/uL (1.8-7.7); Neutrophils % 51.9 %; Nucleated Red Blood Cells % 0 %; Platelet Count 113 10^3/cmm (130-400); Red Blood Count 3.37 10^6/uL (4.1-5.3); Red Cell Distribution Width 12.7 % (12.1-15.1); White Blood Count 8.3 10^3/uL (4.0-10.0)
--- NOTE | 2020-02-17 12:57 | PC.CHAP ---
Pastoral Care Encounter/Spiritual Assessment Type of Contact [] Declined roll or tape edge machine operator visit [] Patient/Family/Request visit [] Outpatient visit [] Follow-up visit [] Physician referral [] Code/Alert [X] Routine visit [] Staff referral [] Actively dying [] Patient sleeping [] Family support [] [] Out of room [] Palliative care [] [] Receiving care in room [] Pre-surgical visit [] Trauma [] Long length of stay [] ICU visit [] Other: Relational/Emotional Strength [] Patient feels connected with others/family/visitors/staff [] Distress [] Loneliness/isolation [] Abandonment Spirituality of Patient [] Person of Krysta [] Attends Restorationist of their Krysta [] Believes in Prayer [] Reads Bible or Mandaeism materials [] There are Spiritual issues to be addressed Flat Sorter Processor Interventions [] Prayer [] Active listening [] Non-anxious presence [] Spiritual/emotional support [] Crisis/trauma care [] Spiritual counseling [] Bereavement support [] Provided bereavement packet [] Provided Bible/devotional materials [] Provided toy/stuffed animal, coloring book to patient or family member [] Provided Communion [] Anointing/[place] [] Salvation [] Completed spiritual assessment [] Other: Impact on Illness or Injury [] Angry [] Fearful [] Anxious [] Often cries [] Exhaustion [] Unable to work [] Unable to attend anglican [] Unable to walk/stand [] Unable to read [] Unable to drive [] Unable to eat/drink [] Unable to sleep [] Unable to be with family [] Patient intubated [] Other: Summary LADY VERY ANGRY AT HOSPITAL/DOCTOR ABOUT DELAYS IN BEING DISCHARGED Time spent with patient
[2020-02-17 16:00] VITALS: BP 110/61; PULSE 85; RESP 17; TEMP 37.3; O2SAT 90
[2020-02-17 20:00] VITALS: BP 97/62; PULSE 81; RESP 17; TEMP 36.9; O2SAT 93
[2020-02-18] VITALS: BP 94/56; PULSE 83; RESP 18; TEMP 36.6; O2SAT 90
[2020-02-18 03:41] VITALS: BP 103/62; PULSE 86; RESP 17; TEMP 36.8; O2SAT 90
[2020-02-18 05:53] LABS: Basophils % 0.4 %; Eosinophils % 0.1 %; Hematocrit 29.5 % (37.0-47.0); Hemoglobin 9.5 g/dL (11.5-15.3); Lymphocytes # 1.2 10^3/uL (0.8-4.8); Lymphocytes % 17.5 %; Mean Corpuscular HGB Conc 32.2 g/dL (30.0-36.0); Mean Corpuscular Hemoglobin 32.4 pg (28.0-34.0); Mean Corpuscular Volume 100.7 fL (81-99); Mean Platelet Volume 11.3 fL (7.4-10.4); Monocytes # 0.8 10^3/uL (0.2-0.9); Monocytes % 11.7 %; Neutrophils % 69.9 %; Nucleated Red Blood Cells % 0 %; Platelet Count 96 10^3/cmm (130-400); Red Blood Count 2.93 10^6/uL (4.1-5.3); Red Cell Distribution Width 12.4 % (12.1-15.1); White Blood Count 7.1 10^3/uL (4.0-10.0)
[2020-02-18 06:08] LABS: Anion Gap 14.9 (5-19); Blood Urea Nitrogen 7 mg/dL (8-23); Calcium 8.6 mg/dL (8.5-10.5); Carbon Dioxide 26 mmol/L (22-29); Chloride 94 mmol/L (98-107); Glucose 115 mg/dL (65-115); Osmolality Calculated 269 mOsm/kg (285-295); Potassium 3.9 mmol/L (3.5-5.1); Sodium 131 mmol/L (136-145)
[2020-02-18 07:27] VITALS: BP 110/62; PULSE 64; RESP 20; TEMP 36.6; O2SAT 97
[2020-02-18] MEDS: thiamine 100 mg Tablet PO (09:12)
[2020-02-18] MEDS: citalopram 20 mg Tablet PO (09:13)
[2020-02-18] MEDS: gabapentin 300 mg Capsule 600 MG PO ×2 (09:13→12:13)
[2020-02-18] MEDS: heparin 5,000 unit/mL INJ 1 mL 5000 UNIT SUBCUT (09:30)
--- NOTE | 2020-02-18 09:30 | PC.SOCIAL ---
IMM Page 2 of IMM given to patient. Initialed, dated, and timed and placed in chart.
[2020-02-18 11:23] VITALS: BP 112/60; PULSE 64; RESP 22; TEMP 36.2; O2SAT 95
--- NOTE | 2020-02-18 11:40 | P.DS_ITS ---
Discharge Providers Date of Admission: 02/15/20 14:53 Date of Discharge: February 18, 2020 Attending Provider at Admission: Denny Campbell MD Attending Provider at Discharge: Denny Campbell MD Primary Care Provider: Max Curtis DO Diagnoses at Discharge Discharge Diagnosis (1) Pelvic fracture: Status: Acute Problem details: No surgery required. Follow-up with orthopedics in 2 weeks. Discharged to nursing facility for rehabilitation (2) Fall: Status: Acute Problem details: Secondary to trip Qualifiers: Encounter type: initial encounter Qualified Code(s): W19.XXXA - Unspecified fall, initial encounter (3) Tobacco dependency: Status: Acute Problem details: Discussed abstinence (4) Alcohol use: Status: Acute Problem details: Discussed abstinence, increase of fall risk with alcohol Reason for Visit Reason for Visit: Reason For Visit: FALL, LEFT PELVIC RAMI FX Hospital Course Hospital Course: Erin is an 84-year-old white female that presented after a fall and sustained a left-sided pelvic fracture, superior and inferior iliac spine. Orthopedics evaluated her and no surgery was recommended. During her hospital stay rehabilitation was consulted and worked on safe transfers. It was thought she should go to [facility] facility for further rehabilitation prior to going home. Secondary to her alcohol use and tobacco use she was also counseled to stop these things. Sodium was mildly low, and this will be evaluated with repeat BMP in 3 to 5 days. TSH was mildly elevated consistent with subclinical hypothyroidism and should be repeated in 4 to 6 weeks. B12 and folate levels were normal. CT had no hemorrhage. Physical Exam Narrative: EXAM NARRATIVE: General exam is no apparent distress Cardiovascular regular in rhythm without murmur Lungs clear Abdomen is soft with positive bowel sounds Extremities no cyanosis clubbing or edema Urinary Catheter Management^: [place]: Cath Placed During This Visit: yes, but has since been removed by the nurse Reason for Continuing Indwelling Catheter: Decision to DC Catheter Urinary Catheter Date of Insertion: 02/15/20 Urinary Catheter Time of Insertion: 15:40 Date Urinary Catheter Removed: 02/17/20 Time Urinary Catheter Discontinued: 11:20 Discharge Data Data Completed and Pending: Completed Studies During Hospitalization Category Date Time Status CT cervical spin wo con* [id number] Stat Cat Scan 02/15/20 13:[address] head wo con* 7 [id number] Stat Cat Scan 02/15/20 13:54 Completed XR chest 1V aryan ble [id number] Stat Exams 02/15/20 13:54 Completed XR hip LT 2-3V wo /w pel* [id number] Stat Exams 02/15/20 13:54 Completed Labs from last 24 hours 02/18/20 02/18/20 02/17/20 05:26 05:26 11:56 WBC 7.1 8.3 RBC 2.93 L 3.37 L Hgb 9.5 L 11.0 L Hct 29.5 L 34.9 L MCV 100.7 H 103.6 H MCH 32.4 32.6 MCHC 32.2 31.5 RDW 12.4 12.7 Plt Count 96 L 113 L MPV 11.3 H 11.1 H Neut % (Auto) 69.9 51.9 Lymph % (Auto) 17.5 33.9 [place] % (Auto) 11.7 9.7 Eos % (Auto) 0.1 3.4 Baso % (Auto) 0.4 0.7 Neut # (Auto) 5.0 4.3 Lymph # (Auto) 1.2 2.8 [place] # (Auto) 0.8 0.8 Eos # (Auto) 0.0 0.3 Baso # (Auto) 0.0 0.1 Nucleated RBC % (a uto) 0 0 Nucleated RBCs # 0.0 0.0 Sodium 131 L Potassium 3.9 Chloride 94 L Carbon Dioxide 26 Anion Gap 14.9 BUN 7 L Creatinine 0.6 Glucose 115 Calculated Osmolal ity 269 L Calcium 8.6 Vitals: Last Vital Signs Temp 97.2 F L 02/18/20 11:23 Pulse 64 02/18/20 11:23 Resp 22 H 02/18/20 11:23 BP 112/60 02/18/20 11:23 Pulse Ox 95 02/18/20 11:23 Discharge Plan Discharge Patient Disposition: Xfer SNF Condition: Stable Prescriptions: New oxycodone-acetaminophen 5-325 mg Tablet 1 tab PO Q4H PRN (Reason: Severe Pain) Qty: 20 RF: 0 thiamine mononitrate (vit B1) [Vitamin B-1 (mononitrate)] 100 mg Tablet 100 mg PO DAILY Qty: 30 RF: 0 acetaminophen 325 mg Tablet 650 mg PO Q6H PRN (Reason: Mild/Mod Pain Or Temp >/= 101) Qty: 30 RF: 0 ipratropium-albuterol 0.5 mg-3 mg(2.5 mg base)/3 mL Solution For Nebulization 3 ml inhalation Q6H PRN (Reason: Shortness Of Breath) Qty: 180 RF: 0 Continued gabapentin 600 mg tablet 600 mg PO QID RF: 0 citalopram 20 mg tablet 20 mg PO DAILY RF: 0 Discharge Orders: Discharge Order (Routine); Ordered 02/18/20 Ordered By: Denny Campbell Other Ambulatory Orders: DME: [employer] (Order) Timeframe: 1 Year Location: None Selected Ordered By: Denny Campbell DME: Walker (Order) Location: None Selected Ordered By: Denny Campbell Referrals: [facility] ([facility]) [Outside] (Call Wednesday to make a hospital follow up appointment with [facility] to resume taking care of you.) [facility] [Outside] - 4-7 days ([facility] as well in 5 days) Max Curtis DO [Primary Care Provider] - (Call Wednesday to make a hospital follow up appointment with Dr. Curtis primary care in 4-7 days.) Jose Cardenas DO [Physician] - 2 weeks Discharge Diet: Regular Discharge Activity: Increase activity as tolerated Activity Restrictions/Additional Instructions: Weight-bear as tolerated Follow-up with Dr. Cardenas in 2 weeks No alcohol Discharge Attestations Time Spent in Discharge Care*: greater than 30 min Time Spent in Smoking Cessation: Time spent discussing smoking cessation with patient: 3 to 10 minutes Quality Metrics Clinical Quality Measures During this hospital stay, did patient experience: None Coding Level of Care Code Acute Chiropractic Physician for g Fwd Diagnoses Pelvic fracture S32.9XXA Fall W19.XXXA Encounter type: initial encounter Tobacco dependency F17.200 Alcohol use Z72.89
[2020-02-18 12:22] VITALS: RESP 16
[2020-02-18] MEDS: oxyCODONE-APAP 5-325 mg Tablet 1 TAB PO (12:22)
[2020-02-18 15:02] VITALS: BP 112/6; PULSE 64; RESP 16; TEMP 36.2; O2SAT 95
== END 2020-02-18 14:00 | disposition skilled nursing facility (03) | DRG 536 ==
LOC: ER 15:49 → MEDSURG 16:19
PROVIDERS: Admitting Provider Internal Medicine; Emergency Provider Emergency Medicine; Family Provider Electrodiagnostic Medicine; PCP Electrodiagnostic Medicine; Visit Provider Internal Medicine
DX: S32.810A Multiple fractures of pelvis with stable disruption of pelvic ring, initial encounter for closed fracture (principal); W01.0XXA Fall on same level from slipping, tripping and stumbling without subsequent striking against object, initial encounter; Z87.440 Personal history of urinary (tract) infections; F10.20 Alcohol dependence, uncomplicated; G89.29 Other chronic pain; M54.9 Dorsalgia, unspecified; J44.9 Chronic obstructive pulmonary disease, unspecified; F32.9 Major depressive disorder, single episode, unspecified; M19.90 Unspecified osteoarthritis, unspecified site; H35.30 Unspecified macular degeneration; G62.9 Polyneuropathy, unspecified; F17.210 Nicotine dependence, cigarettes, uncomplicated; Z98.1 Arthrodesis status; S01.81XA Laceration without foreign body of other part of head, initial encounter; E02 Subclinical iodine-deficiency hypothyroidism
CPT/HCPCS: 12345; 36415; 51702; 70450; 71045; 72125; 73502; 80048; 80076; 81001; 82607; 82746; 84443; 85025; 90471; 90714; 96372; 96374; 96375; 97161; 97166; 97530; 97535; 99283; J1644; J2270; J2405

== ENCOUNTER → 2020-02-28 09:47 | Outpatient (BNVA) | payer OTHER, MEDICARE, SELFPAY | PROVIDERS: Family Provider Electrodiagnostic Medicine; PCP Electrodiagnostic Medicine; Visit Provider Orthopaedic Surgery | DX: S32.591A Other specified fracture of right pubis, initial encounter for closed fracture (principal); S32.592A Other specified fracture of left pubis, initial encounter for closed fracture; X58.XXXA Exposure to other specified factors, initial encounter | CPT/HCPCS: 72170 ==

== ENCOUNTER → 2020-03-28 10:25 | Outpatient (BNVA) | payer MEDICARE, SELFPAY | PROVIDERS: Family Provider Electrodiagnostic Medicine; PCP Electrodiagnostic Medicine; Visit Provider Orthopaedic Surgery | DX: S32.591A Other specified fracture of right pubis, initial encounter for closed fracture (principal); S32.592A Other specified fracture of left pubis, initial encounter for closed fracture; X58.XXXA Exposure to other specified factors, initial encounter | CPT/HCPCS: 72170 ==

== ENCOUNTER → 2020-04-25 09:47 | Outpatient (BNVA) | payer MEDICARE, SELFPAY | PROVIDERS: Family Provider Electrodiagnostic Medicine; PCP Electrodiagnostic Medicine; Visit Provider Orthopaedic Surgery | DX: S32.591A Other specified fracture of right pubis, initial encounter for closed fracture (principal); S32.592A Other specified fracture of left pubis, initial encounter for closed fracture; S32.519A Fracture of superior rim of unspecified pubis, initial encounter for closed fracture; X58.XXXA Exposure to other specified factors, initial encounter | CPT/HCPCS: 72170 ==

== ENCOUNTER → 2020-05-17 09:56 | Outpatient (BNVA) | payer MEDICARE, SELFPAY | PROVIDERS: Family Provider Electrodiagnostic Medicine; PCP Electrodiagnostic Medicine; Referring Provider Electrodiagnostic Medicine; Visit Provider Nurse Practitioner Family | DX: B37.3 Candidiasis of vulva and vagina (principal); N39.46 Mixed incontinence; N39.0 Urinary tract infection, site not specified; R82.71 Bacteriuria | CPT/HCPCS: 80053; 81001; 87077; 87086; 87186 ==

== ENCOUNTER 2020-08-05 09:37 | Outpatient (CLI) | payer MEDICARE, SELFPAY ==
--- NOTE | 2020-08-05 09:45 | CT_ITS ---
WS: [id number] CT NECK WITH CONTRAST HISTORY: SKIN LESION, SMOKER, ACCIDENTAL FALL, HYPOXEMIA, COPD TECHNIQUE: Contiguous 5 mm axial images are performed through the neck with intravenous contrast. Sag ittal and coronal reformats are also submitted. All CT scans at [facility] use at least o ne of these dose optimization techniques: automated exposure control; mA and/or kV adjustment per pat ient size (includes targeted exams where dose is matched to clinical indication); or iterative recons truction. CONTRAST: CONTRAST: Omnipaque 300; 95 mL IV. DLP: 948.73 mGycm COMPARISON: 04/13/2018 Nasopharynx, oropharynx, hypopharynx and larynx are unremarkable. No soft tissue masses or abnormal e nhancement. Torus tubarius and fossa of Rosenmuller and parapharyngeal fat are normal. No significant lymphadenopathy is identified. Large soft tissue mass centered in the superficial LEFT parotid gland but also extends into the deep parotid. Measures 2.6 x 2.9 x 3.2 cm. Suspect there is probably an additional smaller mass in the sup erficial RIGHT parotid measuring 0.8 x 1.0 cm. Submandibular gland is normal. Severe degenerative changes throughout the cervical spine. C3 and C4 anterolisthesis by 4 mm. Severe desiccation of the C5-6 and C6-7 disc spaces. Lytic changes are again noted through the odontoid proc ess which are stable since 04/12/2018. Visualized portions of the skull base demonstrate no abnormalities. Orbits and globes are within norm al limits. No soft tissue masses. Visualized paranasal sinuses and mastoid air cells are normal. Chronic emphysematous changes at the lung apices. There is an area of pleural thickening at the RIGHT apex and fibrosis which has been seen on prior studies. Severe atherosclerosis of the visualized aor ta. CT/CT neck w con* [id number] IMPRESSION: 1. Large LEFT parotid mass measuring 2.6 x 2.9 x 3.2 cm. Suspect a smaller nod ule in the superficial RIGHT parotid measuring 0.8 x 1.0 cm. Consider benign an d malignant etiologies. Recommend follow-up with ENT for evaluation. 2. No adenopathy along the cervical chains.
[2020-08-05] MEDS: iohexol 300 mg/mL 100 mL Btl IV (10:11)
== END 2020-08-05 09:38 | disposition home or self-care (01) ==
LOC: RADWPI 09:42
PROVIDERS: Family Provider Electrodiagnostic Medicine; PCP Electrodiagnostic Medicine; Visit Provider Electrodiagnostic Medicine
DX: R09.02 Hypoxemia (principal); J44.9 Chronic obstructive pulmonary disease, unspecified; L98.9 Disorder of the skin and subcutaneous tissue, unspecified; F17.210 Nicotine dependence, cigarettes, uncomplicated; W19.XXXA Unspecified fall, initial encounter; D37.030 Neoplasm of uncertain behavior of the parotid salivary glands
CPT/HCPCS: 70491; Q9967

== ENCOUNTER 2022-04-25 12:06 | Emergency (ER) | payer MEDICARE, MEDICAID, SELFPAY ==
[2022-04-25 12:15] VITALS: BP 122/82; PULSE 79; RESP 18; TEMP 36.6; O2SAT 93
--- NOTE | 2022-04-25 13:11 | ED_ITS ---
HPI - Wound/Laceration General: Chief Complaint: Wound/Laceration Stated Complaint: Right leg got scraped Time Seen by Provider: 04/25/22 13:11 Source: patient Mode of arrival: ambulatory History of Present Illness: 86-year-old female resident of assisted care stumbled over a rock at the assisted care and has 2 skin tears on the right lower leg. Did not strike her head she did not lose consciousness. She denies any other injuries. She is awake and alert she is unsure of her last tetanus shot. Onset (ago): minute(s) Extremity Location: Left: lower leg Place: home Patient tetanus UTD: No Context: accidental Associated symptoms: Denies chills, fever(s), foreign body sensation, inability to move, nausea, numbness, pain, syncope or vomiting Review of Systems Const: Denies: fever(s) or chills ENMT: Denies: throat pain, ear or mastoid pain, nasal discharge or nasal congestion Card: Denies: syncope Resp: Denies: dyspnea, productive cough or non-productive cough GI: Denies: nausea or vomiting : Denies: flank pain, difficulty voiding, dysuria, urinary frequency or urinary urgency Skin/Breast: Denies: rash or pruritus PFSH ED PFSH: Medical History (Updated 05/03/22 @ 00:01 by ) Alcohol use Discussed abstinence, increase of fall risk with alcohol Chronic back pain COPD (chronic obstructive pulmonary disease) Depression DJD (degenerative joint disease) Fracture of superior pubic ramus Inferior pubic ramus fracture Macular degeneration Mixed stress and urge urinary incontinence Peripheral neuropathy Recurrent UTI Tobacco dependency Discussed abstinence Surgical History History of appendectomy History of cataract surgery History of hernia surgery History of lumbar fusion History of total abdominal hysterectomy and bilateral salpingo-oophorectomy S/P ORIF (open reduction internal fixation) fracture Left hip Family History Father Brain tumor Social History Smoking and tobacco status: current every day smoker cigarettes Alcohol intake: current Alcohol type: beer and hard liquor Marital status: / Current occupational status: retired Physical Exam Const: COMMON NORMALS: no acute distress GENERAL APPEARANCE: cooperative and comfortable ORIENTATION/CONSCIOUSNESS: Yes awake, Yes oriented to person, Yes oriented to place and Yes oriented to time HENMT: COMMON NORMALS: normocephalic, atraumatic and hearing grossly normal bilaterally HEAD & SCALP: normocephalic and atraumatic Neck/C-Spine: COMMON NORMALS: no JVD Resp: COMMON NORMALS: normal respiratory effort, No retractions, No use of accessory muscles and clear to auscultation bilaterally AUSCULTATION: clear to auscultation bilaterally Cardio: COMMON NORMALS: no JVD, regular rate, regular rhythm and No murmurs present (Cardio) RATE: regular rate RHYTHM: regular rhythm GI: COMMON NORMALS: Soft to palpation and No hepatosplenomegaly present AUSCULTATION: Yes normoactive bowel sounds PALPATION: Yes Soft to palpation, No Tenderness to palpation present (GI), No Guarding due to palpation present (GI) and Yes No hepatosplenomegaly present Extremity: OTHER: Skin tear on the elbow and dorsum of the left hand. Large flap laceration to the left lower leg anteriorly in excess of 30 cm total. Neuro: SENSORIUM/ORIENTATION: Yes oriented to person, Yes oriented to place and Yes oriented to time Procedures Laceration Laceration 1: Site: lower extremity Side (If applicable): left Size (cm): 30 Description: flap Depth: simple, single layer Skin layer closed with: nylon Size (cm): 4-0 Technique: simple, interrupted (3 interrupted sutures placed to position the skin flap) and running (2 running sutures on either side of the apex of the skin flap) Procedural Sedation Indication: laceration repair Preparation: monitor technician applied, pulse oximeter, supplemental O2 applied and IV secured Midazolam: IV Midazolam dose (mg): 5 Patient Tolerated Procedure: well Complications: none Course Vital Signs: Vital signs: Vital Signs Temperature 97.8 F 04/25/22 12:15 Pulse Rate 79 04/25/22 12:15 Respiratory Rate 18 04/25/22 12:15 Blood Pressure 122/82 04/25/22 12:15 Pulse Oximetry 93 04/25/22 12:15 MDM - Wound/Laceration Medical Decision Making Conscious sedation for laceration repair. Steinauer was sutured into position and running suture on either side of the apex which approximated wound edges well. Wound care instructions given. Other skin tears not amenable to repair on the left hand and elbow. Sutures out in 10 to 14 days apply topical [id number] antibiotic to wounds until healed. Medical Records I reviewed the patient's medical records. Lab Data I reviewed the patient's lab results. Discharge Plan Discharge Patient Disposition: Home Clinical Impression: Skin tear of right lower leg without complication Condition: Stable Prescriptions: New mupirocin 2 % ointment 1 applic topical BID Qty: 22 0RF No Action fluconazole 150 mg tablet 150 mg PO Q3D Qty: 3 0RF cefuroxime axetil 500 mg tablet 500 mg PO BID Qty: 28 1RF gabapentin 600 mg tablet 600 mg PO QID 0RF Rx Instructions: PT STATES THAT SHE TAKES 1 AND 1/2 TABS QID AND IT WORKS FOR HER. citalopram 20 mg tablet 20 mg PO DAILY 0RF acetaminophen 325 mg Tablet 650 mg PO Q6H PRN (Reason: Mild/Mod Pain Or Temp >/= 101) Qty: 30 0RF ipratropium-albuterol 0.5 mg-3 mg(2.5 mg base)/3 mL Solution For Nebulization 3 ml inhalation Q6H PRN (Reason: Shortness Of Breath) Qty: 180 0RF oxycodone-acetaminophen 5-325 mg Tablet 1 tab PO Q4H PRN (Reason: Severe Pain) Qty: 20 0RF Vitamin B-1 (mononitrate) 100 mg Tablet 100 mg PO DAILY Qty: 30 0RF Discharge Orders: Discharge ED (Routine); Ordered 04/25/22 Ordered By: Gordo Santillan Referrals: Pete Hobbs DO [Primary Care Provider] - Discharge Diet: Usual diet Discharge Activity: Resume usual activity Patient Instructions: Skin Tear (ED), Opioid Safety Activity Restrictions/Additional Instructions: Apply topical antibiotic twice daily allow Steri-Strips to fall off spontaneously. Follow-up with primary care doctor at the [place] [facility]. Continue to apply topical antibiotic twice daily until healed keep wound covered wash once daily under running water. Coding Level of Care Code ED Engineering Research Manager for Lopez Baxter
[2022-04-25] MEDS: tetanus-dipt-pertussis 0.5 mL SDV IM (13:22)
[2022-04-25] MEDS: neomycin-poly-bacitracin oint 0.9 gm Pkt 1 APPLIC TOPICAL (13:41)
== END 2022-04-25 13:45 | disposition home or self-care (01) ==
PROVIDERS: Emergency Provider Family Medicine; PCP Internal Medicine
DX: S81.811A Laceration without foreign body, right lower leg, initial encounter (principal); J44.9 Chronic obstructive pulmonary disease, unspecified; H35.30 Unspecified macular degeneration; F17.210 Nicotine dependence, cigarettes, uncomplicated; W01.0XXA Fall on same level from slipping, tripping and stumbling without subsequent striking against object, initial encounter; Z23 Encounter for immunization
CPT/HCPCS: 90471; 90715; 99283

== ENCOUNTER 2022-08-11 12:51 | Outpatient (CLI) | payer MEDICARE, MEDICAID, SELFPAY ==
--- NOTE | 2022-08-11 13:04 | CT_ITS ---
WS: [id number] CT NECK TECHNIQUE: Contrast-enhanced CT of the neck with coronal and sagittal reformatted images. CLINICAL INFORMATION: LOCALIZED SWELLING, MASS AND LUMP, NECK COMPARISON: CT August 05, 2020 DLP: 143.[address] scans at [facility] use at least one of these dose optimization techniques: automated e xposure control; mA and/or kV adjustment per patient size (includes targeted exams where dose is matc hed to clinical indication); or iterative reconstruction. FINDINGS: Again seen is the heterogeneously enhancing lesion in the LEFT parotid measuring 2.5 x 2.8 x 3.0 cm u nchanged from previous. Additional smaller nodule in the superficial RIGHT parotid gland not definite ly seen today. No new parotid lesions. Normal submandibular glands. No cervical lymphadenopathy. No evidence of supraglottic or glottic mass. Normal posterior nasopharynx. Normal parapharyngeal fat. Mastoid air cells are well aerated. Paranasal sinuses are well aerated. Fibrosis in the lung apices. Advanced spondylitic changes cervical spine. Grade 1 anterolisthesis C3 on C4. Mild to moderate cent ral canal stenosis at C4-C6. CT/CT neck w con* [id number] IMPRESSION: 1. No change in the heterogeneously enhancing LEFT parotid lesion. 2. No definite right-sided parotid nodules visualized today. 3. No cervical lymphadenopathy. 4. No other significant changes compared to previous.
[2022-08-11] MEDS: iohexol 350 mg/mL 100 mL Btl IV (13:57)
[2022-08-11 14:50] LABS: Blood Urea Nitrogen 6 mg/dL (8-23)
== END 2022-08-11 12:52 | disposition home or self-care (01) ==
LOC: RAD 12:51
PROVIDERS: PCP Internal Medicine; Visit Provider Specialist
DX: R22.1 Localized swelling, mass and lump, neck (principal)
CPT/HCPCS: 70491; 82565; 84520

== ENCOUNTER → 2023-07-13 10:50 | Outpatient (BNVA) | payer MEDICARE, MEDICAID, SELFPAY | PROVIDERS: PCP Internal Medicine; Visit Provider Podiatrist Foot & Ankle Surgery | DX: I73.9 Peripheral vascular disease, unspecified (principal); L60.3 Nail dystrophy | CPT/HCPCS: 11721; 99203 ==

== ENCOUNTER → 2023-10-05 10:41 | Outpatient (BNVA) | payer MEDICARE, MEDICAID, SELFPAY | PROVIDERS: PCP Internal Medicine; Visit Provider Podiatrist Foot & Ankle Surgery | DX: I73.9 Peripheral vascular disease, unspecified (principal); L60.3 Nail dystrophy | CPT/HCPCS: 11721 ==

== ENCOUNTER → 2023-12-08 12:56 | Outpatient (BNVA) | payer MEDICARE, MEDICAID, SELFPAY | PROVIDERS: PCP Internal Medicine; Visit Provider Podiatrist Foot & Ankle Surgery | DX: L60.8 Other nail disorders (principal); I73.9 Peripheral vascular disease, unspecified; L60.3 Nail dystrophy | CPT/HCPCS: 11721 ==

== ENCOUNTER 2024-02-02 13:10 | Emergency (ER) | payer MEDICARE, MEDICAID, SELFPAY ==
[2024-02-02 13:14] VITALS: BP 175/71; PULSE 122; RESP 16; TEMP 36.4; O2SAT 94
--- NOTE | 2024-02-02 13:36 | XRR_ITS ---
PROCEDURE INFORMATION: Exam: XR Chest Exam date and time: 02/02/2024 1:59 PM Age: 88 years old Clinical indication: Fever; Additional info: HTN TECHNIQUE: Imaging protocol: Radiologic exam of the chest. Views: 1 view. COMPARISON: CR XR chest 1V portable [id number] 02/15/2020 1:58 PM FINDINGS: Tubes, catheters and devices: Previous thoracolumbar spinal instrumentation. Lungs: Hazy infiltrate left base. Pleural spaces: Unremarkable. No pleural effusion. No pneumothorax. Heart/Mediastinum: Unremarkable. No cardiomegaly. Bones/joints: Multiple right-sided rib fractures which are new in comparison to chest radiograph from 02/15/2020. Osteopenia. XR/XR chest 1V portable [id number] IMPRESSION: Hazy infiltrate left base.
--- NOTE | 2024-02-02 13:37 | ECG_ITS ---
[facility] Test Date: 2024-02-02 Pat Name: Erin Xie Department: Room: Gender: Female Enrollment Clerk: : 1935 Requested By: Beto Gupta Order Number: [id number] Sharmila MD: Juan Daniel Hall M.D. Measurements Intervals [place] Rate: 103 P: 36 MN: 138 QRS: -90 QRSD: 90 T: 55 QT: 333 QTc: 436 Interpretive Statements SINUS TACHYCARDIA WITH OCCASIONAL VENTRICULAR PREMATURE COMPLEXES LEFT AXIS DEVIATION [QRS AXIS < -30] S1-S2-S3 PATTERN, CONSISTENT WITH PULMONARY DISEASE, RVH, OR NORMAL VARIANT Compared to ECG 08/10/2018 15:27:31 Ventricular premature complex(es) now present Right ventricular hypertrophy now present Sinus rhythm no longer present Myocardial infarct finding no longer present Electronically Signed On 02-02-2024 15:27:42 CDT by Juan Daniel Hall M.D. [id number]
[2024-02-02 14:24] VITALS: RESP 18; O2SAT 86
--- NOTE | 2024-02-02 14:24 | PC.NURSE ---
pt normally wears 3LNC. pt placed on oxygen
[2024-02-02 14:30] LABS: Basophils % 0.2 %; Eosinophils % 0.1 %; Hematocrit 41.8 % (36-47); Lymphocytes # 0.6 10^3/uL (0.8-4.8); Lymphocytes % 5.8 %; Mean Corpuscular HGB Conc 33.3 g/dL (30-55); Mean Corpuscular Hemoglobin 32.2 pg (27-33); Mean Corpuscular Volume 96.8 fl (85-98); Monocytes # 0.2 10^3/uL (0.2-0.9); Neutrophils # 8.79 10^3/uL (1.8-7.7); Neutrophils % 91.3 %; Nucleated Red Blood Cells % 0 %; Platelet Count 178 10^3/cmm (157-399); Red Blood Count 4.32 10^6/uL (3.85-5.65); White Blood Count 9.63 10^3/uL (3.29-11.43)
[2024-02-02 14:39] VITALS: O2SAT 96
[2024-02-02 14:51] LABS: Alanine Aminotransferase 10 U/L (0-33); Albumin Level 4.4 g/dL (3.5-5.2); Alkaline Phosphatase 85 U/L (35-105); Anion Gap 19.9 (5-19); Aspartate Amino Transferase 28 U/L (0-32); Blood Urea Nitrogen 7 mg/dL (8-23); Calcium 9.3 mg/dL (8.5-10.5); Carbon Dioxide 21 mmol/L (22-29); Chloride 92 mmol/L (98-107); Creatinine Clr Calc Pharmacy 34.8327; Globulin 2.8 g/dL (1.3-4.6); Glucose 127 mg/dL (65-115); Lipase 17 U/L (13-60); Osmolality Calculated 268 mOsm/kg (285-295); Potassium 3.9 mmol/L (3.5-5.1); Sodium 129 mmol/L (136-145); Total Bilirubin 0.4 mg/dL (0.15-1.2); Total Protein 7.2 g/dL (6.6-8.7)
[2024-02-02 14:54] VITALS: BP 143/71; PULSE 98; RESP 16
--- NOTE | 2024-02-02 14:54 | ED_ITS ---
HPI - General Adult 2 General: Chief complaint: General Medical Stated complaint: chills, elavated BP, abd pain Time Seen by Provider: 02/02/24 14:46 Source: patient Mode of arrival: ambulatory Limitations: no limitations History of Present Illness: Patient is a nice 88-year-old female who presents to ED today along with her son and [id number] after they were sent here following her podiatry appointment. She states while they are she began shaking and having chills and was told to come to the emergency department for evaluation. Upon arrival here the shaking has stopped. Patient states she feels weak. She is not having pain anywhere. No fevers or recent illness. She has had a cough. She chronically has shortness of breath secondary to her COPD. She is chronically on 3 L of oxygen. She has not had to increase this. She has no complaints of chest pain. Son states she was feeling a little nauseous in the waiting room. Onset (ago): hour(s) Relieving factors: none Exacerbating factors: none Associated symptoms: Reports dyspnea (chronic with her COPD), malaise and nausea; Deny chest pain, headache(s), rash, palpitations, syncope or vomiting Treatments prior to arrival: none Review of Systems 2 Const: Reports: chills, change in appetite and malaise; Denies: fever(s), body aches or fatigue Eyes: Denies: change in vision, blurry vision, photophobia, floaters or seeing flashes ENMT: Denies: throat pain, odynophagia, nasal discharge, nasal congestion or sinus pain Card: Denies: chest pain, palpitations, irregular heart rhythm, edema, swelling of feet/ankles, lightheadedness, syncope or pre-syncope Resp: Reports: dyspnea (chronic with her COPD), productive cough and chest congestion; Denies: wheezing or hemoptysis GI: Reports: nausea; Denies: abdominal pain, vomiting, diarrhea or change in bowel habits : Denies: flank pain, difficulty voiding or dysuria Musc: Denies: neck pain, back pain, extremity pain or joint pain Skin/Breast: Denies: rash Neuro: Denies: headache(s), numbness in extremities, weakness in extremities or sensory changes PFSH ED 2 PFSH: Medical History Recurrent UTI Mixed stress and urge urinary incontinence Fracture of superior pubic ramus Inferior pubic ramus fracture Chronic back pain Macular degeneration Depression DJD (degenerative joint disease) Alcohol use Discussed abstinence, increase of fall risk with alcohol Tobacco dependency Discussed abstinence Peripheral neuropathy COPD (chronic obstructive pulmonary disease) Surgical History History of lumbar fusion S/P ORIF (open reduction internal fixation) fracture Left hip History of appendectomy History of hernia surgery History of cataract surgery History of total abdominal hysterectomy and bilateral salpingo-oophorectomy Family History Father Brain tumor Social History Smoking and tobacco/nicotine status: current every day tobacco/nicotine user cigarettes Alcohol intake: current Alcohol type: beer and hard liquor Substance/Drug Use: never Marital status: / Current occupational status: retired Physical Exam 2 Const: COMMON NORMALS: no acute distress, average body habitus, patient oriented x3, no limitations, healthy appearing, alert and well nourished G ENERAL APPEARANCE: cooperative ORIENTATION/CONSCIOUSNESS: Yes awake, Yes oriented to person, Yes oriented to place and Yes oriented to time HENMT: COMMON NORMALS: normocephalic and atraumatic HEAD & SCALP: normal to inspection, normocephalic and atraumatic Eye: GENERAL EYE: appearance normal, both eyes and all related structures Neck/C-Spine: COMMON NORMALS: full ROM, no lymphadenopathy, supple and no meningeal signs Chest: COMMONS NORMALS: normal inspection of the chest Resp: COMMON NORMALS: normal respiratory effort and clear to auscultation bilaterally AUSCULTATION: clear to auscultation bilaterally Cardio: COMMON NORMALS: regular rate and regular rhythm RATE: regular rate RHYTHM: regular rhythm GI: COMMON NORMALS: Normal to inspection, nondistended, normoactive bowel sounds present, Soft to palpation, non-tender, No hepatosplenomegaly present and no masses PALPATION: Yes Soft to palpation and Yes No hepatosplenomegaly present : COMMON NORMALS: Yes no CVA tenderness BLADDER/KIDNEY EXAM: Yes no CVA tenderness Back/Pelvis: COMMON NORMALS: no CVA tenderness and thoracic and lumbar spine normal to inspection Extremity: COMMON NORMALS: normal to inspection GENERAL: Yes normal exam except as noted Neuro: CALOS COMA SCALE: document GCS findings Calos coma scale eye opening: Spontaneous Calos coma scale verbal response: Orientated [place] coma scale motor response: Obey commands Calos coma scale total score: 15 COMMON NORMALS: patient oriented x3, CN's II-XII intact bilaterally, moves all extremities, no focal motor deficits and no sensory deficits noted S ENSORIUM/ORIENTATION: Yes alert, Yes oriented to person, Yes oriented to place and Yes oriented to time MENINGEAL SIGNS: Yes no meningeal signs Skin: COMMON NORMALS: no rashes or lesions noted GENERAL SKIN EXAM: no rashes or lesions noted Course 2 Vital Signs: Vital signs: Vital Signs Temperature 97.5 F L 02/02/24 13:14 Pulse Rate 98 02/02/24 14:54 Respiratory Rate 16 02/02/24 14:54 Blood Pressure 143/71 02/02/24 14:54 Pulse Oximetry 96 02/02/24 14:39 Oxygen Delivery Me thod Nasal Cannula 02/02/24 14:39 Oxygen Flow Rate 3 02/02/24 14:39 MDM - General Adult Medical Decision Making Patient is a 88-year-old female presents to ED today after she was instructed to come to the ED after her podiatry appointment as she was shaking and having chills. Upon arrival the self resolved. Patient tells me she feels weak. Her vital signs are stable upon arrival. She does normally wear 3 L with her COPD. She has not had to increase this. She has had a cough recently. On her blood work she has a normal white count. Her chemistry reveals hyponatremia at 129. Again she does complain of malaise and nausea. CXR showing left lower lobe pneumonia. I did recommend admission to the hospital however she would like to go home. She is currently on Bactrim for treatment of UTI. Will place her on Levaquin for pulmonary coverage. She would like to go back to her senior care. Strict return to ED precautions given. Medical Records I reviewed the patient's medical records. Lab Data I reviewed the patient's lab results. 02/02/24 13:58 02/02/24 13:58 Radiology Impressions Chest X-Ray 02/02/24 13:36 IMPRESSION: Hazy infiltrate left base. Laboratory Results WBC 9.63 10^3/uL (3.29-11.43) 02/02/24 13:58 RBC 4.32 10^6/uL (3.85-5.65) 02/02/24 13:58 Hgb 13.90 g/dL (11.27-16.99) 02/02/24 13:58 Hct 41.8 % (36-47) 02/02/24 13:58 MCV 96.8 fl (85-98) 02/02/24 13:58 MCH 32.2 pg (27-33) 02/02/24 13:58 MCHC 33.3 g/dL (30-55) 02/02/24 13:58 RDW 13.0 % (12.1-15.1) 02/02/24 13:58 Plt Count 178 10^3/cmm (157-399) 02/02/24 13:58 MPV 10.0 fL (7.4-10.4) 02/02/24 13:58 Neut % (Auto) 91.3 % 02/02/24 13:58 Lymph % (Auto) 5.8 % 02/02/24 13:58 [place] % (Auto) 2.0 % 02/02/24 13:58 Eos % (Auto) 0.1 % 02/02/24 13:58 Baso % (Auto) 0.2 % 02/02/24 13:58 Neut # (Auto) 8.79 10^3/uL (1.8-7.7) H 02/02/24 13:58 Lymph # (Auto) 0.6 10^3/uL (0.8-4.8) L 02/02/24 13:58 [place] # (Auto) 0.2 10^3/uL (0.2-0.9) 02/02/24 13:58 Eos # (Auto) 0.0 10^3/uL (0.0-0.8) 02/02/24 13:58 Baso # (Auto) 0.0 10^3/uL (0.0-0.1) 02/02/24 13:58 Nucleated RBC % (auto) 0 % 02/02/24 13:58 Nucleated RBCs # 0.0 /100WBC 02/02/24 13:58 Sodium 129 mmol/L (136-145) L 02/02/24 13:58 Potassium 3.9 mmol/L (3.5-5.1) 02/02/24 13:58 Chloride 92 mmol/L (98-107) L 02/02/24 13:58 Carbon Dioxide 21 mmol/L (22-29) L 02/02/24 13:58 Anion Gap 19.9 (5-19) H 02/02/24 13:58 BUN 7 mg/dL (8-23) L 02/02/24 13:58 Creatinine 0.7 mg/dL (0.5-0.9) 02/02/24 13:58 GFR Calculation Not Reportable 02/02/24 13:58 Glucose 127 mg/dL (65-115) H 02/02/24 13:58 Calculated Osmolality 268 mOsm/kg (285-295) L 02/02/24 13:58 Calcium 9.3 mg/dL (8.5-10.5) 02/02/24 13:58 Total Bilirubin 0.4 mg/dL (0.15-1.2) 02/02/24 13:58 AST 28 U/L (0-32) 02/02/24 13:58 ALT 10 U/L (0-33) 02/02/24 13:58 Alkaline Phosphatase 85 U/L (35-105) 02/02/24 13:58 Total Protein 7.2 g/dL (6.6-8.7) 02/02/24 13:58 Albumin 4.4 g/dL (3.5-5.2) 02/02/24 13:58 Globulin 2.8 g/dL (1.3-4.6) 02/02/24 13:58 Lipase 17 U/L (13-60) 02/02/24 13:58 Procalcitonin 0.23 ng/mL (0-0.5) 02/02/24 13:58 Urine Color Yellow (Yellow) 02/02/24 15:35 Urine Appearance Hazy (CLEAR) A 02/02/24 15:35 Urine pH 7 (5-7) 02/02/24 15:35 Ur Specific [place] 1.010 (1.005-1.030) 02/02/24 15:35 Urine Protein Neg (Negative) 02/02/24 15:35 Urine Glucose (UA) Norm (Normal) 02/02/24 15:35 Urine Ketones Negative (Negative) 02/02/24 15:35 Urine Blood 2+ (Negative) H 02/02/24 15:35 Urine Nitrate Positive (Negative) H 02/02/24 15:35 Urine Bilirubin Neg (Negative) 02/02/24 15:35 Urine Urobilinogen Norm mg/dL (Negative) 02/02/24 15:35 Ur Leukocyte Esterase 2+ (Negative) H 02/02/24 15:35 Urine RBC 0-4 /hpf (0-2) H 02/02/24 15:35 Urine WBC 10-15 /hpf (0-5) H 02/02/24 15:35 Ur Squamous Epith Cells 0-4 /hpf (0-5) H 02/02/24 15:35 Amorphous Sediment Not Reportable 02/02/24 15:35 Urine Bacteria 3+ /hpf (NONE) H 02/02/24 15:35 All radiology interpretation(s) finalized by discharge Discharge Plan Discharge Patient Disposition: Home Clinical Impression: Hyponatremia LLL pneumonia Qualifiers: Pneumonia type: due to unspecified organism Qualified Code(s): J18.9 - Pneumonia, unspecified organism Acute cystitis Qualifiers: Hematuria presence: with hematuria Qualified Code(s): N30.01 - Acute cystitis with hematuria Condition: Stable Prescriptions: New levofloxacin 500 mg tablet 500 mg PO DAILY 7 Days Qty: 7 0RF No Action gabapentin 600 mg tablet 900 mg PO TID citalopram 20 mg tablet 20 mg PO DAILY ipratropium-albuterol 0.5 mg-3 mg(2.5 mg base)/3 mL solution for nebulization 3 ml INHALATION QID albuterol sulfate 2.5 mg /3 mL (0.083 %) Solution For Nebulization 2.5 mg inhalation PRN PRN (Reason: Respiratory Distress) oxybutynin chloride 10 mg tablet extended release 24hr 10 mg PO DAILY [place] 5-325 mg Tablet 1 - 2 tab PO Q4H PRN (Reason: Pain) Artificial Tears (polyvin alc) 1.4 % Drops See Rx Instructions .ROUTE .COMPLEX Rx Instructions: as directed both eyes as needed for eye dryness Zofran 4 mg Tablet 4 mg PO Q6H PRN (Reason: Nausea And Vomiting) prednisone 5 mg Tablet 5 mg PO DAILY sulfamethoxazole-trimethoprim 800-160 mg tablet 1 tab PO BID lorazepam 0.5 mg tablet 0.5 mg PO Q4H PRN (Reason: Anxiety) Milk of Magnesia 400 mg/5 mL Suspension 30 ml PO DAILY PRN (Reason: Constipation) hyoscyamine sulfate 0.125 mg Tablet,Disintegrating 0.125 mg PO Q4H PRN (Reason: Secretions) Bisac-Evac 10 mg Suppository 10 mg MT DAILY PRN (Reason: Constipation) Fleet Enema 19-7 gram/118 mL Enema 118 ml MT DAILY PRN (Reason: Constipation) Prilosec 20 mg Capsule,Delayed Release(Dr/Ec) 20 mg PO DAILY budesonide 0.5 mg/2 mL suspension for nebulization 0.5 mg inhalation Q12H Singulair 10 mg Tablet 10 mg PO DAILY Virtussin AC 10-100 mg/5 mL Liquid 2 ml PO TID PRN (Reason: Cough) Culturelle 10 billion cell Capsule 1 cap PO DAILY PRN (Reason: while on antibiotics) Systane (PF) 0.4-0.3 % Dropperette 1 drp ophthalmic (eye) BID PRN (Reason: unknown) [id number] 1-0.5-0.075 % Drops,Suspension 1 drp OPHTHALMIC (EYE) TID Rx Instructions: left eye Prevagen Extra Strength 1 cap PO DAILY acetaminophen 325 mg tablet 650 mg PO QID PRN (Reason: Fever Or Pain) Discharge Orders: Discharge ED (Routine); Ordered 02/02/24 Ordered By: Mendy Gunter Referrals: Pete Hobbs DO [Primary Care Provider] - Patient Instructions: Hyponatremia, Pneumonia (ED), Urinary Tract Infection in Older Adults (ED) Activity Restrictions/Additional Instructions: As we discussed you need to continue your Bactrim for treatment of your urinary tract infection. You need to return to the emergency department for severe flank pain, fevers, severe abdominal pain, inability to urinate, or any other concerns you may have. Your chest x-ray today showed a pneumonia to your left lower lobe. We are placing you on antibiotics (Levaquin) for coverage of this. This prescription has been sent to your pharmacy of choice on file. You need to return to the emergency department for shortness of breath, difficulty breathing, chest pain, having to increase your home oxygen, fevers, feeling worse or unwell, or any other concerns you may have. As we discussed your sodium was low on lab work today (129). Please let the senior care know so that the provider can recheck this. She needs to return the emergency department for continued nausea, vomiting, diarrhea, headache, severe lethargy/tiredness, seizures, or any other concerns as these can be signs of worsening sodium levels. Coding Level of Care Code ED Tent Worker for Lopez Baxter
--- NOTE | 2024-02-02 15:13 | PC.PHAR ---
pt is from [facility]-medications entered are from what was on the mar and tar the pt brought with them
[2024-02-02 15:18] LABS: Procalcitonin 0.23 ng/mL (0-0.5)
[2024-02-02 15:48] LABS: Urine Appearance Hazy (CLEAR); Urine Color Yellow (Yellow); pH Urine 7 (5-7)
[2024-02-02] MEDS: sodium chloride 0.9% 1,000 ML 999 ML IV (15:48)
[2024-02-02 15:49] LABS: Add Urine Microscopic? YES; Bilirubin Urine Neg (Negative); Blood Urine 2+ (Negative); Glucose Urine UA Norm (Normal); Ketones Urine Negative (Negative); Leukocyte Esterase Urine 2+ (Negative); Nitrate Urine Positive (Negative); Protein Urine Neg (Negative); Urobilinogen Urine Norm (Negative)
[2024-02-02 16:02] LABS: RBC Urine 0-4 /hpf (0-2)
[2024-02-02 16:03] LABS: Add Urine Culture? Yes; Bacteria Urine 3+ /hpf; Squamous Epithelial Cell Urine 0-4 /hpf (0-5)
[2024-02-02] MEDS: cefTRIAXone 1,000 MG in sodium chloride 0.9% (plus) 50 ML 100 MG IV (16:10)
[2024-02-02] MEDS: levoFLOXacin 500 mg Tablet PO (16:14)
[2024-02-02 16:30] VITALS: BP 117/56; PULSE 90; RESP 19; O2SAT 93
[2024-02-02 17:04] VITALS: BP 114/59; PULSE 92; RESP 17; O2SAT 93
== END 2024-02-02 17:05 | disposition home or self-care (01) ==
PROVIDERS: Emergency Medicine; Emergency Provider Physician Assistant; PCP Internal Medicine
DX: E87.1 Hypo-osmolality and hyponatremia (principal); J18.9 Pneumonia, unspecified organism; N30.01 Acute cystitis with hematuria; F17.210 Nicotine dependence, cigarettes, uncomplicated; H35.30 Unspecified macular degeneration; J44.9 Chronic obstructive pulmonary disease, unspecified
CPT/HCPCS: 36415; 71045; 80053; 81001; 83690; 84145; 85025; 87077; 87086; 87186; 93005; 96365; 99285; J0696; J7030

== ENCOUNTER 2024-02-02 23:04 | Inpatient (IN) | payer MEDICARE, MEDICAID, SELFPAY ==
[2024-02-02 23:04] VITALS: BP 96/53; PULSE 90; RESP 32; TEMP 38; O2SAT 89; BMI 17.6
--- NOTE | 2024-02-02 23:15 | XRR_ITS ---
PROCEDURE INFORMATION: Exam: XR Chest Exam date and time: 02/02/2024 11:25 PM Age: 88 years old Clinical indication: Dyspnea and shortness of breath; Prior surgery; Surgery date: 6+ months; Surgery type: Spine; Additional info: Pneumonia TECHNIQUE: Imaging protocol: Radiologic exam of the chest. Views: 1 view. COMPARISON: CR XR chest 1V portable [id number] 02/02/2024 1:59 PM FINDINGS: Lungs: Prominent interstitial markings. Suspect right lower lung infiltrate. Pleural spaces: No large pleural effusion. No pneumothorax. Heart/Mediastinum: No cardiomegaly. Bones/joints: Osseous demineralization. No acute osseous abnormality. Spinal hardware. Right-sided rib fracture deformities, subacute or chronic. XR/XR chest 1V portable [id number] IMPRESSION: Suspect right lower lung infiltrate, increased in conspicuity compared to prior.
--- NOTE | 2024-02-02 23:17 | ED_ITS ---
Documented by User: SHAYLA Garrison 02/03/24 00:06 HPI - SOB/Dyspnea 2 General: Chief Complaint: Shortness of Breath/Dyspnea Stated Complaint: pneumonia Time Seen by Provider: 02/02/24 23:05 Source: patient and family Mode of arrival: EMS Limitations: no limitations History of Present Illness: HPI Narrative: Patient is a 88-year-old female who is returning to the ED after being seen earlier today via EMS. I personally saw patient just a few hours ago. HPI at that time was as follows: Patient is a nice 88-year-old female who presents to ED today along with her son and [id number] after they were sent here following her podiatry appointment. She states while they are she began shaking and having chills and was told to come to the emergency department for evaluation. Upon arrival here the shaking has stopped. Patient states she feels weak. She is not having pain anywhere. No fevers or recent illness. She has had a cough. She chronically has shortness of breath secondary to her COPD. She is chronically on 3 L of oxygen. She has not had to increase this. She has no complaints of chest pain. Son states she was feeling a little nauseous in the waiting room. Patient was offered admission to the hospital given her acute cystitis, pneumonia, weakness, hyponatremia with nausea and malaise but patient was adamant she wanted to return to her senior living so she was allowed discharge. Patient arrives today hypotensive, tachypneic, febrile at 100.4, and hypoxic at 89% on 4 L. She is agreeable to stay in the hospital at this time. PMH is significant for COPD continuously on 3 L, depression/anxiety, chronic alcohol and tobacco use, chronic back pain, GERD. MD elicited complaint: shortness of breath Onset (ago): day(s) Timing: constant Severity: severe Known history of: COPD Associated symptoms: Reports fever(s) and nausea; Deny chest pain, dizziness, extremity pain, hemoptysis, palpitations, syncope or vomiting Treatment prior to arrival: bronchodilator Related Data: Home oxygen amount: 3 liters Review of Systems 2 Const: Reports: fever(s), fatigue and malaise Eyes: Denies: change in vision, blurry vision, photophobia, floaters or seeing flashes ENMT: Denies: throat pain, odynophagia, nasal discharge, nasal congestion or sinus pain Card: Denies: chest pain, palpitations, irregular heart rhythm, edema, syncope or pre-syncope Resp: Reports: dyspnea; Denies: wheezing or hemoptysis GI: Reports: nausea; Denies: vomiting Musc: Denies: neck pain, back pain, extremity pain or joint pain Skin/Breast: Denies: rash Neuro: Denies: headache(s), numbness in extremities, weakness in extremities, sensory changes or dizziness PFSH ED 2 PFSH: Medical History Recurrent UTI Mixed stress and urge urinary incontinence Fracture of superior pubic ramus Inferior pubic ramus fracture Chronic back pain Macular degeneration Depression DJD (degenerative joint disease) Alcohol use Discussed abstinence, increase of fall risk with alcohol Tobacco dependency Discussed abstinence Peripheral neuropathy COPD (chronic obstructive pulmonary disease) Surgical History History of lumbar fusion S/P ORIF (open reduction internal fixation) fracture Left hip History of appendectomy History of hernia surgery History of cataract surgery History of total abdominal hysterectomy and bilateral salpingo-oophorectomy Family History Father Brain tumor Social History Smoking and tobacco/nicotine status: current every day tobacco/nicotine user cigarettes Alcohol intake: current Alcohol type: beer and hard liquor Substance/Drug Use: never Marital status: / Current occupational status: retired Physical Exam 2 Const: COMMON NORMALS: patient oriented x3, no limitations, alert and well nourished GENERAL APPEARANCE: cooperative and in distress (respiratory distress with hypoxia) ORIENTATION/CONSCIOUSNESS: Yes awake, Yes oriented to person, Yes oriented to place and Yes oriented to time OTHER: appears weak HENMT: COMMON NORMALS: normocephalic and atraumatic HEAD & SCALP: n ormocephalic and atraumatic Resp: COMMON NORMALS: clear to auscultation bilaterally EFFORT & INSPECTION: Yes respiratory distress and Yes labored AUSCULTATION: clear to auscultation bilaterally Cardio: COMMON NORMALS: regular rate and regular rhythm RATE: regular rate RHYTHM: regular rhythm GI: COMMON NORMALS: Normal to inspection, nondistended, normoactive bowel sounds present, Soft to palpation and non-tender PALPATION: Yes Soft to palpation Extremity: COMMON NORMALS: no clubbing, cyanosis or edema, no calf tenderness and no pedal edema GENERAL: Yes normal exam except as noted Neuro: CALOS COMA SCALE: document GCS findings [place] coma scale eye opening: Spontaneous Calos coma scale verbal response: Orientated [place] coma scale motor response: Obey commands Calos coma scale total score: 15 COMMON NORMALS: patient oriented x3 SENSORIUM/ORIENTATION: Yes alert, Yes oriented to person, Yes oriented to place and Yes oriented to time Skin: COMMON NORMALS: no rashes or lesions noted GENERAL SKIN EXAM: no rashes or lesions noted Course 2 Consultations: Consultation #1: Dr. Reyes-accepts admission Vital Signs: Vital signs: Vital Signs Temperature 100.4 F H 02/02/24 23:04 Pulse Rate 90 02/02/24 23:04 Respiratory Rate 32 H 02/02/24 23:04 Blood Pressure 96/53 02/02/24 23:04 Pulse Oximetry 89 L 02/02/24 23:04 Oxygen Delivery Me thod Nasal Cannula 02/02/24 23:04 Oxygen Flow Rate 4 02/02/24 23:04 MDM - SOB/Dyspnea Medical Decision Making Patient is an 88-year-old female returning to the emergency department after she was just seen a few hours ago. She was offered admission at that time but declined. She is back now and worsening condition. She is not requiring additional oxygen. She has a low-grade fever. White count is still normal. Her lactate is normal. CRP is elevated. She is now agreeable to admission. Spoke to Dr. Reyes who will admit patient. Dr. Anton aware of patient and will place admit orders. Lab Data 02/02/24 22:53 02/02/24 22:53 Labs/Radiology: Laboratory Results WBC 8.32 10^3/uL (3.29-11.43) 02/02/24 22:53 RBC 3.92 10^6/uL (3.85-5.65) 02/02/24 22:53 Hgb 12.60 g/dL (11.27-16.99) 02/02/24 22:53 Hct 36.9 % (36-47) 02/02/24 22:53 MCV 94.1 fl (85-98) 02/02/24 22:53 MCH 32.1 pg (27-33) 02/02/24 22:53 MCHC 34.1 g/dL (30-55) 02/02/24 22:53 RDW 13.2 % (12.1-15.1) 02/02/24 22:53 Plt Count 141 10^3/cmm (157-399) L 02/02/24 22:53 MPV 10.1 fL (7.4-10.4) 02/02/24 22:53 Neut % (Auto) 93.6 % 02/02/24 22:53 Lymph % (Auto) 1.7 % 02/02/24 22:53 [place] % (Auto) 4.1 % 02/02/24 22:53 Eos % (Auto) 0.0 % 02/02/24 22:53 Baso % (Auto) 0.1 % 02/02/24 22:53 Neut # (Auto) 7.79 10^3/uL (1.8-7.7) H 02/02/24 22:53 Lymph # (Auto) 0.1 10^3/uL (0.8-4.8) L 02/02/24 22:53 [place] # (Auto) 0.3 10^3/uL (0.2-0.9) 02/02/24 22:53 Eos # (Auto) 0.0 10^3/uL (0.0-0.8) 02/02/24 22:53 Baso # (Auto) 0.0 10^3/uL (0.0-0.1) 02/02/24 22:53 Nucleated RBC % (auto) 0 % 02/02/24 22:53 Nucleated RBCs # 0.0 /100WBC 02/02/24 22:53 Sodium 130 mmol/L (136-145) L 02/02/24 22:53 Potassium 3.7 mmol/L (3.5-5.1) 02/02/24 22:53 Chloride 96 mmol/L (98-107) L 02/02/24 22:53 Carbon Dioxide 21 mmol/L (22-29) L 02/02/24 22:53 Anion Gap 16.7 (5-19) 02/02/24 22:53 BUN 7 mg/dL (8-23) L 02/02/24 22:53 Creatinine 0.7 mg/dL (0.5-0.9) 02/02/24 22:53 GFR Calculation Not Reportable 02/02/24 22:53 Glucose 147 mg/dL (65-115) H 02/02/24 22:53 Calculated Osmolality 271 mOsm/kg (285-295) L 02/02/24 22:53 Lactic Acid 1.7 mmol/L (0.5-2.2) 02/02/24 22:53 Calcium 8.2 mg/dL (8.5-10.5) L 02/02/24 22:53 Total Bilirubin 0.4 mg/dL (0.15-1.2) 02/02/24 22:53 AST 35 U/L (0-32) H 02/02/24 22:53 ALT 17 U/L (0-33) 02/02/24 22:53 Alkaline Phosphatase 73 U/L (35-105) 02/02/24 22:53 C-Reactive Protein 37.8 mg/L (0.0-4.9) H 02/02/24 22:53 Total Protein 6.4 g/dL (6.6-8.7) L 02/02/24 22:53 Albumin 3.9 g/dL (3.5-5.2) 02/02/24 22:53 Globulin 2.5 g/dL (1.3-4.6) 02/02/24 22:53 XR interpretation done by ED provider, pending radiology final review Discharge Plan Discharge Patient Disposition: Placed in Observation Clinical Impression: LLL pneumonia, Acute cystitis, Hyponatremia, Cystitis, Hypoxemia Coding Level of Care Code ED Director Of Religious Activities for Chg Fwd Documented by User: Joel Anton MD 02/03/24 00:07 HPI - SOB/Dyspnea 2 General: Chief Complaint: Shortness of Breath/Dyspnea Stated Complaint: pneumonia Time Seen by Provider: 02/02/24 23:05 History of Present Illness: HPI Narrative: Patient is a 88-year-old female who is returning to the ED after being seen earlier today via EMS. I personally saw patient just a few hours ago. HPI at that time was as follows: Patient is a nice 88-year-old female who presents to ED today along with her son and [id number] after they were sent here following her podiatry appointment. She states while they are she began shaking and having chills and was told to come to the emergency department for evaluation. Upon arrival here the shaking has stopped. Patient states she feels weak. She is not having pain anywhere. No fevers or recent illness. She has had a cough. She chronically has shortness of breath secondary to her COPD. She is chronically on 3 L of oxygen. She has not had to increase this. She has no complaints of chest pain. Son states she was feeling a little nauseous in the waiting room. Patient was offered admission to the hospital given her acute cystitis, pneumonia, weakness, hyponatremia with nausea and malaise but patient was adamant she wanted to return to her senior living so she was allowed discharge. Patient arrives today hypotensive, tachypneic, febrile at 100.4, and hypoxic at 89% on 4 L. She is agreeable to stay in the hospital at this time. PMH is significant for COPD continuously on 3 L, depression/anxiety, chronic alcohol and tobacco use, chronic back pain, GERD. Attending physician attestation I discussed the patient's history of present illness, physical exam findings, pertinent labs, pertinent radiographic exams and plan of care with the midlevel provider. I did personally have a [id number] evaluation and discussion with the patient regarding the plan of care and the need for further admission/transfer. PFS ED 2 PFSH: Medical History Recurrent UTI Mixed stress and urge urinary incontinence Fracture of superior pubic ramus Inferior pubic ramus fracture Chronic back pain Macular degeneration Depression DJD (degenerative joint disease) Alcohol use Discussed abstinence, increase of fall risk with alcohol Tobacco dependency Discussed abstinence Peripheral neuropathy COPD (chronic obstructive pulmonary disease) Surgical History History of lumbar fusion S/P ORIF (open reduction internal fixation) fracture Left hip History of appendectomy History of hernia surgery History of cataract surgery History of total abdominal hysterectomy and bilateral salpingo-oophorectomy Family History Father Brain tumor Social History Smoking and tobacco/nicotine status: current every day tobacco/nicotine user cigarettes Alcohol intake: current Alcohol type: beer and hard liquor Substance/Drug Use: never Marital status: / Current occupational status: retired Physical Exam 2 Neuro: CALOS COMA SCALE: document GCS findings [place] coma scale total score: 15 Course 2 Vital Signs: Vital signs: Vital Signs Temperature 100.4 F H 02/02/24 23:04 Pulse Rate 90 02/02/24 23:04 Respiratory Rate 32 H 02/02/24 23:04 Blood Pressure 96/53 02/02/24 23:04 Pulse Oximetry 89 L 02/02/24 23:04 Oxygen Delivery Me thod Nasal Cannula 02/02/24 23:04 Oxygen Flow Rate 4 02/02/24 23:04 MDM - SOB/Dyspnea Medical Decision Making Attending physician attestation I discussed the patient's history of present illness, physical exam findings, pertinent labs, pertinent radiographic exams and plan of care with the midlevel provider. I did personally have a [id number] evaluation and discussion with the patient regarding the plan of care and the need for further admission/transfer. Medical Records I reviewed the patient's medical records. Lab Data I reviewed the patient's lab results. 02/02/24 22:53 02/02/24 22:53 Labs/Radiology: Laboratory Results WBC 8.32 10^3/uL (3.29-11.43) 02/02/24 22:53 RBC 3.92 10^6/uL (3.85-5.65) 02/02/24 22:53 Hgb 12.60 g/dL (11.27-16.99) 02/02/24 22:53 Hct 36.9 % (36-47) 02/02/24 22:53 MCV 94.1 fl (85-98) 02/02/24 22:53 MCH 32.1 pg (27-33) 02/02/24 22:53 MCHC 34.1 g/dL (30-55) 02/02/24 22:53 RDW 13.2 % (12.1-15.1) 02/02/24 22:53 Plt Count 141 10^3/cmm (157-399) L 02/02/24 22:53 MPV 10.1 fL (7.4-10.4) 02/02/24 22:53 Neut % (Auto) 93.6 % 02/02/24 22:53 Lymph % (Auto) 1.7 % 02/02/24 22:53 [place] % (Auto) 4.1 % 02/02/24 22:53 Eos % (Auto) 0.0 % 02/02/24 22:53 Baso % (Auto) 0.1 % 02/02/24 22:53 Neut # (Auto) 7.79 10^3/uL (1.8-7.7) H 02/02/24 22:53 Lymph # (Auto) 0.1 10^3/uL (0.8-4.8) L 02/02/24 22:53 [place] # (Auto) 0.3 10^3/uL (0.2-0.9) 02/02/24 22:53 Eos # (Auto) 0.0 10^3/uL (0.0-0.8) 02/02/24 22:53 Baso # (Auto) 0.0 10^3/uL (0.0-0.1) 02/02/24 22:53 Nucleated RBC % (auto) 0 % 02/02/24 22:53 Nucleated RBCs # 0.0 /100WBC 02/02/24 22:53 Sodium 130 mmol/L (136-145) L 02/02/24 22:53 Potassium 3.7 mmol/L (3.5-5.1) 02/02/24 22:53 Chloride 96 mmol/L (98-107) L 02/02/24 22:53 Carbon Dioxide 21 mmol/L (22-29) L 02/02/24 22:53 Anion Gap 16.7 (5-19) 02/02/24 22:53 BUN 7 mg/dL (8-23) L 02/02/24 22:53 Creatinine 0.7 mg/dL (0.5-0.9) 02/02/24 22:53 GFR Calculation Not Reportable 02/02/24 22:53 Glucose 147 mg/dL (65-115) H 02/02/24 22:53 Calculated Osmolality 271 mOsm/kg (285-295) L 02/02/24 22:53 Lactic Acid 1.7 mmol/L (0.5-2.2) 02/02/24 22:53 Calcium 8.2 mg/dL (8.5-10.5) L 02/02/24 22:53 Total Bilirubin 0.4 mg/dL (0.15-1.2) 02/02/24 22:53 AST 35 U/L (0-32) H 02/02/24 22:53 ALT 17 U/L (0-33) 02/02/24 22:53 Alkaline Phosphatase 73 U/L (35-105) 02/02/24 22:53 C-Reactive Protein 37.8 mg/L (0.0-4.9) H 02/02/24 22:53 Total Protein 6.4 g/dL (6.6-8.7) L 02/02/24 22:53 Albumin 3.9 g/dL (3.5-5.2) 02/02/24 22:53 Globulin 2.5 g/dL (1.3-4.6) 02/02/24 22:53 Discharge Plan Discharge Patient Disposition: Placed in Observation Clinical Impression: LLL pneumonia, Acute cystitis, Hyponatremia, Cystitis, Hypoxemia Coding Level of Care Code ED Director Of Religious Activities for [place] Baxter
[2024-02-02 23:23] LABS: Basophils % 0.1 %; Hematocrit 36.9 % (36-47); Lymphocytes # 0.1 10^3/uL (0.8-4.8); Lymphocytes % 1.7 %; Mean Corpuscular HGB Conc 34.1 g/dL (30-55); Mean Corpuscular Hemoglobin 32.1 pg (27-33); Mean Corpuscular Volume 94.1 fl (85-98); Mean Platelet Volume 10.1 fL (7.4-10.4); Monocytes # 0.3 10^3/uL (0.2-0.9); Monocytes % 4.1 %; Neutrophils # 7.79 10^3/uL (1.8-7.7); Neutrophils % 93.6 %; Nucleated Red Blood Cells % 0 %; Platelet Count 141 10^3/cmm (157-399); Red Blood Count 3.92 10^6/uL (3.85-5.65); Red Cell Distribution Width 13.2 % (12.1-15.1); White Blood Count 8.32 10^3/uL (3.29-11.43)
[2024-02-02 23:29] VITALS: BP 76/43; PULSE 88; RESP 22; O2SAT 93
[2024-02-02] MEDS: sodium chloride 0.9% 1,000 ML 999 ML IV (23:37)
[2024-02-02 23:38] LABS: Alanine Aminotransferase 17 U/L (0-33); Albumin Level 3.9 g/dL (3.5-5.2); Alkaline Phosphatase 73 U/L (35-105); Anion Gap 16.7 (5-19); Aspartate Amino Transferase 35 U/L (0-32); Blood Urea Nitrogen 7 mg/dL (8-23); C Reactive Protein 37.8 mg/L (0.0-4.9); Calcium 8.2 mg/dL (8.5-10.5); Carbon Dioxide 21 mmol/L (22-29); Chloride 96 mmol/L (98-107); Creatinine Clr Calc Pharmacy 34.1232; Globulin 2.5 g/dL (1.3-4.6); Glucose 147 mg/dL (65-115); Osmolality Calculated 271 mOsm/kg (285-295); Potassium 3.7 mmol/L (3.5-5.1); Sodium 130 mmol/L (136-145); Total Bilirubin 0.4 mg/dL (0.15-1.2); Total Protein 6.4 g/dL (6.6-8.7)
[2024-02-02 23:39] LABS: Lactic Sepsis W/Reflex 1.7 mmol/L (0.5-2.2)
[2024-02-03] VITALS (18 sets, daily range): BP systolic 72–118; BP diastolic 45–61; PULSE 70–96; RESP 17–18; TEMP 36.7–37.4; O2SAT 91–99; BMI 18.0
--- NOTE | 2024-02-03 00:38 | PM.HP ---
Providers/Chief Complaint Admitting Physician: Fanny Reyes MD Primary Care Provider: Pete Hobbs DO Chief Complaint: pneumonia History of Present Illness Erin Xie is a 88 year old female, currently a long-term resident at [facility]. She presented to the podiatry office earlier this morning for a routine visit where she was noted to have shaking chills and was sent into the emergency room for evaluation. At that time her vital signs were all within normal range, she was found to have a positive UA for which she had already been taking Bactrim as an outpatient and was additionally found to have a right lower lobe pneumonia. She was recommended admission, however elected to return home. He was then discharged on Levaquin. She was sent back from the facility this evening after she was noted to be requiring more oxygen than at her baseline. Typically patient needs 3 L/min supplemental O2 for COPD, now requiring 4 L/min to maintain O2 sats. She was additionally now noted to be hypotensive with blood pressure systolic in the 90s and was sent back to the emergency room. Review of systems is positive for cough, no pascale fever, dysuria and chills earlier today. Review of Systems General: Reports: 10 or more systems reviewed and unremarkable except in HPI and below Const: Denies: fever(s), chills or body aches Eyes: Denies: change in vision, blurry vision or photophobia ENMT: Reports: hoarseness; Denies: throat pain, enlarged tonsils, odynophagia or nasal congestion Card: Denies: chest pain, palpitations, irregular heart rhythm, edema, swelling of feet/ankles, lightheadedness, pre-syncope, dyspnea on exertion or orthopnea Resp: Denies: dyspnea, productive cough, non-productive cough, wheezing, stridor, pain on inspiration, change in phlegm color, hemoptysis or chest congestion GI: Denies: abdominal pain, nausea, vomiting, hematemesis, coffee ground emesis, dysphagia, heartburn, diarrhea, constipation, GI cramping, change in stool character, hematochezia or melena : Denies: flank pain, difficulty voiding, dysuria, urinary frequency, urinary urgency, urinary hesitancy or hematuria Musc: Denies: neck pain, back pain, extremity pain, joint swelling, joint warmth or deformity Neuro: Denies: headache(s), numbness in extremities, weakness in extremities, sensory changes, difficulty walking, frequent falls, dizziness, vertigo, behavioral changes, Slurred speech present or seizure-like activity Psych: Denies: anxiety, depression, suicidal ideation or homicidal ideation Endo: Denies: polyuria, polydipsia, tired all the time, cold intolerance or hot flashes Jong/Lymph: Denies: easy bruising or easy bleeding Medications/Allergies Home Medications Medication Instructions Recorded Confirmed Last Taken Type citalopram 20 mg tablet 20 mg PO DAILY 02/15/20 02/03/24 Unknown History gabapentin 600 mg tablet 900 mg PO TID 02/15/20 02/03/24 02/15/20 History Lactobacillus rhamnosus GG 10 1 cap PO DAILY PRN while on 02/02/24 02/03/24 Unknown History billion cell capsule (Culturelle) antibiotics Prevagen Extra Strength 1 cap PO DAILY 02/02/24 02/03/24 Unknown History acetaminophen 325 mg tablet 650 mg PO QID PRN Fever Or Pain 02/02/24 02/03/24 Unknown History albuterol sulfate 2.5 mg/3 mL 2.5 mg inhalation PRN PRN 02/02/24 02/03/24 Unknown History (0.083 %) solution for nebulization Respiratory Distress bisacodyl 10 mg rectal suppository 10 mg KS DAILY PRN Constipation 02/02/24 02/03/24 Unknown History budesonide 0.5 mg/2 mL suspension 0.5 mg inhalation Q12H 02/02/24 02/03/24 Unknown History for nebulization codeine 10 mg-guaifenesin 100 mg/5 2 ml PO TID PRN Cough 02/02/24 02/03/24 Unknown History mL oral liquid (Virtussin AC) hydrocodone 5 mg-acetaminophen 325 1 - 2 tab PO Q4H PRN Pain 02/02/24 02/03/24 Unknown History mg tablet hyoscyamine sulfate 0.125 mg 0.125 mg PO Q4H PRN Secretions 02/02/24 02/03/24 Unknown History disintegrating tablet ipratropium 0.5 mg-albuterol 3 mg 3 ml inhalation QID 02/02/24 02/03/24 Unknown History (2.5 mg base)/3 mL nebulization soln lorazepam 0.5 mg tablet 0.5 mg PO Q4H PRN Anxiety 02/02/24 02/03/24 Unknown History magnesium hydroxide 400 mg/5 mL 30 ml PO DAILY PRN Constipation 02/02/24 02/03/24 Unknown History oral suspension (Milk of Magnesia) montelukast 10 mg tablet 10 mg PO DAILY 02/02/24 02/03/24 Unknown History (Singulair) omeprazole 20 mg capsule,delayed 20 mg PO DAILY 02/02/24 02/03/24 Unknown History release ondansetron HCl 4 mg tablet 4 mg PO Q6H PRN Nausea And Vomiting 02/02/24 02/03/24 Unknown History oxybutynin chloride 10 mg 10 mg PO DAILY 02/02/24 02/03/24 Unknown History tablet,extended release 24 hr polyvinyl alcohol 1.4 % eye drops See Rx Instructions .Route .COMPLEX 02/02/24 02/03/24 Unknown History (Artificial Tears (polyvinyl alcohol)) prednisolone 1 %-moxifloxacin 0.5 1 drp ophthalmic (eye) TID 02/02/24 02/03/24 Unknown History %-bromfenac 0.075 % eye drops susp prednisone 5 mg tablet 5 mg PO DAILY 02/02/24 02/03/24 Unknown History sodium phosphates 19 gram-7 118 ml KS DAILY PRN Constipation 02/02/24 02/03/24 Unknown History gram/118 mL enema (Fleet Enema) sulfamethoxazole 800 1 tab PO BID 02/02/24 02/03/24 Unknown History mg-trimethoprim 160 mg tablet Allergies Allergy/AdvReac Type Severity Reaction Status Date / Time No Known Allergies Allergy Verified 02/02/24 23:14 PFSH Acute PFSH: Medical History (Updated 02/03/24 @ 05:04 by Fanny Reyes MD) Recurrent UTI Mixed stress and urge urinary incontinence Fracture of superior pubic ramus Inferior pubic ramus fracture Chronic back pain Macular degeneration Depression DJD (degenerative joint disease) Alcohol use Discussed abstinence, increase of fall risk with alcohol Tobacco dependency Discussed abstinence Peripheral neuropathy COPD (chronic obstructive pulmonary disease) Surgical History History of lumbar fusion S/P ORIF (open reduction internal fixation) fracture Left hip History of appendectomy History of hernia surgery History of cataract surgery History of total abdominal hysterectomy and bilateral salpingo-oophorectomy Family History Father Brain tumor Social History Smoking and tobacco/nicotine status: current every day tobacco/nicotine user cigarettes Alcohol intake: current Alcohol type: beer and hard liquor Substance/Drug Use: never Marital status: / Current occupational status: retired Vitals/I&O/Wt Last Vital Signs Temp 100.4 F H 02/02/24 23:04 Pulse 90 02/02/24 23:04 Resp 32 H 02/02/24 23:04 BP 96/53 02/02/24 23:04 Pulse Ox 89 L 02/02/24 23:04 O2 Del Method Nasal Cannula 02/02/24 23:04 O2 Flow Rate 4 02/02/24 23:04 Weight last 48 hrs Weight 40.823 kg Physical Exam Narrative: General: No acute distress, AO x3 HEENT: PERRLA, pupils bilaterally equal and reactive, pallors not present Chest: Normal vesicular breath sounds, no added sounds, equal good air entry bilaterally CVS: S1-S2 regular, no murmurs, no tachycardia, no gallops, no rubs Abdomen: Soft, nontender, no organomegaly, bowel sounds present Neuro: No focal deficits, no facial deformity, AO x3, power 5/5 in all limbs Data 02/02/24 22:53 02/02/24 22:53 Micro: Microbiology 02/02/24 00:10 Blood Culture - Preliminary Blood SPECIMEN COLLECTED 02/02/24 00:00 Blood Culture - Preliminary Blood SPECIMEN COLLECTED Other data: Radiology Impressions Chest X-Ray 02/02/24 23:15 IMPRESSION: Suspect right lower lung infiltrate, increased in conspicuity compared to prior. Laboratory Results WBC 8.32 10^3/uL (3.29-11.43) 02/02/24 22:53 RBC 3.92 10^6/uL (3.85-5.65) 02/02/24 22:53 Hgb 12.60 g/dL (11.27-16.99) 02/02/24 22:53 Hct 36.9 % (36-47) 02/02/24 22:53 MCV 94.1 fl (85-98) 02/02/24 22:53 MCH 32.1 pg (27-33) 02/02/24 22:53 MCHC 34.1 g/dL (30-55) 02/02/24 22:53 RDW 13.2 % (12.1-15.1) 02/02/24 22:53 Plt Count 141 10^3/cmm (157-399) L 02/02/24 22:53 MPV 10.1 fL (7.4-10.4) 02/02/24 22:53 Neut % (Auto) 93.6 % 02/02/24 22:53 Lymph % (Auto) 1.7 % 02/02/24 22:53 [place] % (Auto) 4.1 % 02/02/24 22:53 Eos % (Auto) 0.0 % 02/02/24 22:53 Baso % (Auto) 0.1 % 02/02/24 22:53 Neut # (Auto) 7.79 10^3/uL (1.8-7.7) H 02/02/24 22:53 Lymph # (Auto) 0.1 10^3/uL (0.8-4.8) L 02/02/24 22:53 [place] # (Auto) 0.3 10^3/uL (0.2-0.9) 02/02/24 22:53 Eos # (Auto) 0.0 10^3/uL (0.0-0.8) 02/02/24 22:53 Baso # (Auto) 0.0 10^3/uL (0.0-0.1) 02/02/24 22:53 Nucleated RBC % (auto) 0 % 02/02/24 22:53 Nucleated RBCs # 0.0 /100WBC 02/02/24 22:53 Sodium 130 mmol/L (136-145) L 02/02/24 22:53 Potassium 3.7 mmol/L (3.5-5.1) 02/02/24 22:53 Chloride 96 mmol/L (98-107) L 02/02/24 22:53 Carbon Dioxide 21 mmol/L (22-29) L 02/02/24 22:53 Anion Gap 16.7 (5-19) 02/02/24 22:53 BUN 7 mg/dL (8-23) L 02/02/24 22:53 Creatinine 0.7 mg/dL (0.5-0.9) 02/02/24 22:53 GFR Calculation Not Reportable 02/02/24 22:53 Glucose 147 mg/dL (65-115) H 02/02/24 22:53 Calculated Osmolality 271 mOsm/kg (285-295) L 02/02/24 22:53 Lactic Acid 1.7 mmol/L (0.5-2.2) 02/02/24 22:53 Calcium 8.2 mg/dL (8.5-10.5) L 02/02/24 22:53 Total Bilirubin 0.4 mg/dL (0.15-1.2) 02/02/24 22:53 AST 35 U/L (0-32) H 02/02/24 22:53 ALT 17 U/L (0-33) 02/02/24 22:53 Alkaline Phosphatase 73 U/L (35-105) 02/02/24 22:53 C-Reactive Protein 37.8 mg/L (0.0-4.9) H 02/02/24 22:53 Total Protein 6.4 g/dL (6.6-8.7) L 02/02/24 22:53 Albumin 3.9 g/dL (3.5-5.2) 02/02/24 22:53 Globulin 2.5 g/dL (1.3-4.6) 02/02/24 22:53 Adenovirus (PCR) Not detected (NOT DETECT) 02/02/24 23:30 C. pneumoniae DNA (PCR) Not detected (NOT DETECT) 02/02/24 23:30 Coronavirus 229E (PCR) Not detected (NOT DETECT) 02/02/24 23:30 Human Metapneumovir PCR Not detected (NOT DETECT) 02/02/24 23:30 Influenza A (H1) PCR Not detected (NOT DETECT) 02/02/24 23:30 Influ A (H1/09) PCR Not detected (NOT DETECT) 02/02/24 23:30 Influenza A (H3) PCR Not detected (NOT DETECT) 02/02/24 23:30 Influenza Type A (PCR) Not detected (NOT DETECT) 02/02/24 23:30 Influenza Type B (PCR) Not detected (NOT DETECT) 02/02/24 23:30 M. pneumoniae (PCR) Not detected (NOT DETECT) 02/02/24 23:30 Parainfluenza 1 (PCR) Not detected (NOT DETECT) 02/02/24 23:30 Parainfluenza 2 (PCR) Not detected (NOT DETECT) 02/02/24 23:30 Parainfluenza 3 (PCR) Not detected (NOT DETECT) 02/02/24 23:30 Parainfluenza 4 (PCR) Not detected (NOT DETECT) 02/02/24 23:30 RSV Type A (PCR) Not detected (NOT DETECT) 02/02/24 23:30 RSV Type B (PCR) Not detected (NOT DETECT) 02/02/24 23:30 Entero/Rhino (PCR) Not detected (NOT DETECT) 02/02/24 23:30 SARS-CoV-2 (PCR) Not detected (NOT DETECT) 02/02/24 23:30 A&P Assessment and plan (1) Community acquired pneumonia: (2) Hypoxemia: (3) COPD (chronic obstructive pulmonary disease): (4) Cystitis: Plan 88-year-old with a known history of COPD, baseline 3 L/min supplemental O2, currently presenting with increased oxygen requirements, increased cough, and chills earlier today. Chest x-ray currently showing right lower lobe infiltrate, suspicious for pneumonia Started on ceftriaxone 1 g IV every 24 hours and azithromycin 500 mg p.o. daily Obtain sputum culture and Gram stain Blood cultures taken in the emergency room Obtain urine bacterial antigen and urine Legionella antigen. Normal lactate, Continue nebulization with DuoNeb 4 times daily, budesonide 0.5 twice daily patient states she does not take prednisone on a daily basis Sodium chloride at 75 cc an hour UA + for leukocye esterase ,nitrate, Pending urine cx. Empiric ceftriaxone for now Attestations Medical Necessity Statement*: less than 2 midnight stay anticipated at this time Coding Level of Care Code Acute Code for [facility] Diagnoses Community acquired pneumonia J18.9 Hypoxemia R09.02 COPD (chronic obstructive pulmonary disease) J44.9 Cystitis N30.90
[2024-02-03] MEDS: cefTRIAXone 1,000 MG in sodium chloride 0.9% (plus) 50 ML 100 MG IV ×2 (00:56→23:51)
[2024-02-03 01:21] LABS: Adenovirus Not Detected (NOT DETECT); Chlamydia Pneumoniae Not Detected (NOT DETECT); Coronavirus 229E,HKU1,NL63,OC4 Not Detected (NOT DETECT); Human Metapneumovirus Not Detected (NOT DETECT); Human Rhinovirus/Enterovirus Not Detected (NOT DETECT); Influenza A Not Detected (NOT DETECT); Influenza A H1 Not Detected (NOT DETECT); Influenza A H1-2009 Not Detected (NOT DETECT); Influenza A H3 Not Detected (NOT DETECT); Influenza B Not Detected (NOT DETECT); Mycoplasma Pneumoniae Not Detected (NOT DETECT); Parainfluenza Virus Type 1 Not Detected (NOT DETECT); Parainfluenza Virus Type 2 Not Detected (NOT DETECT); Parainfluenza Virus Type 3 Not Detected (NOT DETECT); Parainfluenza Virus Type 4 Not Detected (NOT DETECT); Respiratory Syncytial Virus A Not Detected (NOT DETECT); Respiratory Syncytial Virus B Not Detected (NOT DETECT); SARS-COV-2 Not Detected (NOT DETECT)
[2024-02-03] MEDS: enoxaparin 40 mg/0.4 mL Syringe SUBCUT ×2 (01:47→23:52)
[2024-02-03] MEDS: sodium chloride 0.9% 1,000 ML 75 ML IV ×2 (01:48→09:10)
[2024-02-03] MEDS: guaiFENesin 100 mg/5 mL UDC 10 mL 200 MG PO (04:09)
--- NOTE | 2024-02-03 04:10 | PC.NURSE ---
pt care update to [facility] alana med tech from [facility], called for update on this pt.
[2024-02-03] MEDS: sodium chloride 0.9% 500 ML IV (04:55)
[2024-02-03 05:43] LABS: D Dimer 3.93 ug/mLFEU (0-0.59)
[2024-02-03] MEDS: budesonide 0.5 mg/2 mL Neb INHALATION ×2 (07:56→20:24)
[2024-02-03] MEDS: ipratropium-albuterol 3 mL Neb INHALATION ×4 (07:56→20:24)
--- NOTE | 2024-02-03 08:51 | CT_ITS ---
WS: [id number] CTA OF THE CHEST WITH PULMONARY EMBOLISM PROTOCOL TECHNIQUE: High-resolution contrast enhanced CTA of the chest with coronal and sagittal reformatted i rashids with pulmonary embolism protocol. MIP images are also reviewed. CLINICAL INFORMATION: sob COMPARISON: None. DLP: 200.[address] scans at [facility] use at least one of these dose optimization techniques: automated e xposure control; mA and/or kV adjustment per patient size (includes targeted exams where dose is matc hed to clinical indication); or iterative reconstruction. FINDINGS: Proximal pulmonary arteries are normal. Normal segmental and subsegmental pulmonary arteries. No evid ence of pulmonary embolus. Normal caliber thoracic aorta. Aortic and coronary calcification. Moderate to advanced chronic emphys ematous changes. Small bilateral pleural effusions. Small amount of loculated fluid LEFT lower lobe p osteriorly. A few air bronchograms in the RIGHT greater than LEFT lower lobes. Recommend correlation for pneumonia. Moderate esophageal hiatal hernia. Thoracic curve. Thoracic kyphosis. Extensive postoperative changes thoracolumbar junction with plate and screw fixation and partial corpectomy. Chronic bilateral rib fractures with callus formation. Mild compression fracture T9 inferior endplate ., Anterior wedging T10 and T11 vertebral body. IMPRESSION: 1. No evidence of pulmonary embolus. 2. Moderate to advanced chronic emphysematous changes. 3. Small LEFT and tiny RIGHT pleural effusions with compressive atelectasis in the lung bases and a few air bronchograms. Recommend correlation for pneumonia. 4. Moderate esophageal hiatal hernia. 5. Mild compression fracture T9 3 endplate new compared to 2018 with visualized fracture cleft. This may be subacute to chronic. Recommend correlation with low back pain. Anterior wedging at T10 and T1 1 also new compared to previous.
[2024-02-03] MEDS: azithromycin 250 mg Tablet 500 MG PO (09:08)
[2024-02-03] MEDS: citalopram 20 mg Tablet PO (09:08)
[2024-02-03] MEDS: oxybutynin chloride XL 5 MG TABLET 10 MG PO (09:08)
[2024-02-03] MEDS: predniSONE 5 mg Tablet PO (09:08)
[2024-02-03] MEDS: montelukast sodium 10 mg Tablet PO (09:08)
[2024-02-03] MEDS: pantoprazole DR 40 mg Tablet PO (09:17)
[2024-02-03] MEDS: iohexol 350 mg/mL 500 mL Btl (per mL) IV (13:26)
[2024-02-03] MEDS: acetaminophen 325 mg Tablet 650 MG PO (13:37)
--- NOTE | 2024-02-03 14:58 | P.PN_ITS ---
Subjective 2 Subjective: Patient was seen this morning., Patient daughter is at bedside, patient tells me that at the care home facility she is able to ambulate with a walker, she can feed herself, she eats what ever she likes, no recent falls, does report fevers, does report chills, does report cough, does report a 10 pound weight loss since October, no recent decline Vitals/I&O/Wt Last Vital Signs Temp 98.7 F 02/03/24 12:00 Pulse 83 02/03/24 12:00 Resp 17 02/03/24 12:00 BP 96/55 02/03/24 12:00 Pulse Ox 91 02/03/24 12:00 O2 Del Method Nasal Cannula 02/03/24 11:23 O2 Flow Rate 5 02/03/24 11:23 02/02/24 02/03/24 02/03/24 22:59 06:59 14:59 Intake Total 1550 / 1550 1272.5 / 1272.5 Balance 1550 / 1550 1272.5 / 1272.5 Weight last 48 hrs Weight 43.908 kg Weight 41.957 kg Weight 40.823 kg Physical Exam 2 Const: COMMON NORMALS: no acute distress ORIENTATION/CONSCIOUSNESS: Yes awake and Yes oriented to person; not oriented to place and not oriented to time Resp: COMMON NORMALS: normal respiratory effort, No retractions and No use of accessory muscles AUSCULTATION: wheezes Cardio: COMMON NORMALS: regular rate, regular rhythm, S1 normal heart sound present and S2 normal heart sound present RATE: regular rate RHYTHM: r egular rhythm HEART SOUNDS: S1 normal heart sound present and S2 normal heart sound present GI: COMMON NORMALS: Normal to inspection, nondistended, normoactive bowel sounds present and non-tender Extremity: COMMON NORMALS: no pedal edema Neuro: SENSORIUM/ORIENTATION: Yes oriented to person, No oriented to place and No oriented to time Psych: COMMON NORMALS: mental status grossly normal Skin: NARRATIVE SKIN EXAM: Has evidence of protein calorie malnutrition muscle wasting including bilateral temporal muscle wasting, muscle wasting of bilateral arms, bilateral thighs, ribs are seen, Data 02/02/24 22:53 02/02/24 22:53 Micro: Microbiology 02/03/24 01:40 Gram Stain - Final Sputum - Expectorated Sputum 02/02/24 00:10 Blood Culture - Preliminary Blood SPECIMEN COLLECTED 02/02/24 00:00 Blood Culture - Preliminary Blood SPECIMEN COLLECTED A&P Assessment and plan (1) Community acquired pneumonia: (2) Hypoxemia: (3) COPD (chronic obstructive pulmonary disease): (4) Cystitis: (5) Moderate protein-calorie malnutrition: (6) Muscle wasting: (7) Protein calorie malnutrition: Plan 88-year-old with a known history of COPD, baseline 3 L/min supplemental O2, currently presenting with increased oxygen requirements, currently on 5 L, increased cough, and chills earlier today. Chest x-ray currently showing right lower lobe infiltrate, suspicious for pneumonia Started on ceftriaxone 1 g IV every 24 hours and azithromycin 500 mg p.o. daily Obtain sputum culture and Gram stain Blood cultures Obtain urine bacterial antigen and urine Legionella antigen. Normal lactate, Continue nebulization with DuoNeb 4 times daily, budesonide 0.5 twice daily patient states she does not take prednisone on a daily basis Sodium chloride at 75 cc an hour UA + for leukocye esterase ,nitrate, Pending urine cx. Empiric ceftriaxone for now Has evidence of protein calorie malnutrition, physical deconditioning, BMI 18.9 muscle wasting, PT OT, Ensure twice daily, consult nutrition, plan for today elevated D-dimer will order CT angiogram the chest, continue antibiotic therapy follow cultures, IV fluids, spoke to patient, spoke to daughter at bedside Attestations 2 Medical Necessity Statement*: This is a 88-year-old female who requires hospitalization for pneumonia, inpatient, greater than 2 midnights, with hypoxia and High MDM includes number and complexity of problems actively addressed during encounter, amount and/or complexity of data reviewed/ordered and described risk of complication, morbidity or mortality of management as documented Diagnoses Community acquired pneumonia J18.9 Hypoxemia R09.02 COPD (chronic obstructive pulmonary disease) J44.9 Cystitis N30.90 Moderate protein-calorie malnutrition E44.0 Muscle wasting M62.50 Protein calorie malnutrition E46
[2024-02-04] VITALS (11 sets, daily range): BP systolic 111–128; BP diastolic 45–74; PULSE 68–97; RESP 16–18; TEMP 36.5–36.8; O2SAT 91–100
[2024-02-04] MEDS: guaiFENesin 100 mg/5 mL UDC 10 mL 200 MG PO (00:23)
[2024-02-04] MEDS: HYDROcodone-acetaminophen 5-325 mg Tablet 1 TAB PO ×2 (01:48→06:40)
--- NOTE | 2024-02-04 03:23 | PC.NURSE ---
Patient became agitated and combative with nurse, telling nurse to get out of here, when nurse went in patient's room to unhook IV fluids due to them being discontinued.
[2024-02-04 04:49] LABS: Basophils % 0.6 %; Eosinophils # 0.1 10^3/uL (0.0-0.8); Eosinophils % 1.8 %; Hematocrit 32.7 % (36-47); Lymphocytes # 0.3 10^3/uL (0.8-4.8); Lymphocytes % 6.4 %; Mean Corpuscular Hemoglobin 31.8 pg (27-33); Mean Corpuscular Volume 96.2 fl (85-98); Mean Platelet Volume 10.2 fL (7.4-10.4); Monocytes # 0.5 10^3/uL (0.2-0.9); Monocytes % 9.2 %; Neutrophils # 3.95 10^3/uL (1.8-7.7); Neutrophils % 81.2 %; Nucleated Red Blood Cells % 0 %; Platelet Count 108 10^3/cmm (157-399); Red Cell Distribution Width 13.6 % (12.1-15.1); White Blood Count 4.87 10^3/uL (3.29-11.43)
[2024-02-04 05:07] LABS: Alanine Aminotransferase 20 U/L (0-33); Alkaline Phosphatase 72 U/L (35-105); Anion Gap 12.7 (5-19); Aspartate Amino Transferase 29 U/L (0-32); Blood Urea Nitrogen 7 mg/dL (8-23); Calcium 7.4 mg/dL (8.5-10.5); Carbon Dioxide 21 mmol/L (22-29); Chloride 101 mmol/L (98-107); Creatinine Clr Calc Pharmacy 35.0883; Glucose 83 mg/dL (65-115); Osmolality Calculated 269 mOsm/kg (285-295); Potassium 3.7 mmol/L (3.5-5.1); Sodium 131 mmol/L (136-145); Total Bilirubin 0.3 mg/dL (0.15-1.2)
[2024-02-04 05:20] LABS: Slide Review Slide Review Perform
--- NOTE | 2024-02-04 05:28 | PC.NURSE ---
the recycling attendant entered pts room to obtain vital signs and pt yelled get out
[2024-02-04] MEDS: ipratropium-albuterol 3 mL Neb INHALATION ×4 (08:16→19:30)
[2024-02-04] MEDS: budesonide 0.5 mg/2 mL Neb INHALATION ×2 (08:17→19:30)
[2024-02-04] MEDS: azithromycin 250 mg Tablet 500 MG PO (08:37)
[2024-02-04] MEDS: oxybutynin chloride XL 5 MG TABLET 10 MG PO (08:37)
[2024-02-04] MEDS: pantoprazole DR 40 mg Tablet PO (08:37)
[2024-02-04] MEDS: citalopram 20 mg Tablet PO (08:37)
[2024-02-04] MEDS: montelukast sodium 10 mg Tablet PO (08:38)
[2024-02-04] MEDS: predniSONE 5 mg Tablet PO (08:38)
--- NOTE | 2024-02-04 09:28 | PC.CHAP ---
Pastoral Care Encounter/Spiritual Assessment Type of Contact [] Declined public services assistant visit [] Patient/Family/Request visit [] Outpatient visit [] Follow-up visit [] Physician referral [] Code/Alert [] Routine visit [] Staff referral [] Actively dying [] Patient sleeping [] Family support [] [] Out of room [] Palliative care [] [] Receiving care in room [] Pre-surgical visit [] Trauma [] Long length of stay [] ICU visit [x] Other:Contact precautions. No visit. Relational/Emotional Strength [] Patient feels connected with others/family/visitors/staff [] Distress [] Loneliness/isolation [] Abandonment Spirituality of Patient [] Person of Krysta [] Attends Yazidi of their Krysta [] Believes in Prayer [] Reads Bible or Gnosticist materials [] There are Spiritual issues to be addressed Flotation Operator Interventions [] Prayer [] Active listening [] Non-anxious presence [] Spiritual/emotional support [] Crisis/trauma care [] Spiritual counseling [] Bereavement support [] Provided bereavement packet [] Provided Bible/devotional materials [] Provided toy/stuffed animal, coloring book to patient or family member [] Provided Communion [] Anointing/[place] [] Salvation [] Completed spiritual assessment [] Other: Impact on Illness or Injury [] Angry [] Fearful [] Anxious [] Often cries [] Exhaustion [] Unable to work [] Unable to attend amish [] Unable to walk/stand [] Unable to read [] Unable to drive [] Unable to eat/drink [] Unable to sleep [] Unable to be with family [] Patient intubated [] Other: Summary Time spent with patient
--- NOTE | 2024-02-04 11:57 | PC.SOCIAL ---
IMM Update pg 2 of IMM updated and reviewed w/ patient. Copy provided and copy dated, initialed and placed in chart.
--- NOTE | 2024-02-04 12:17 | PC.OT ---
OT evaluation with pt declining to be seen; will attempt at a later time.
[2024-02-04] MEDS: LORazepam 0.5 mg Tablet PO (13:49)
--- NOTE | 2024-02-04 13:58 | P.PN_ITS ---
Subjective 2 Subjective: Patient was seen this morning, does report tiredness fatigue, malaise, no fevers, no chills Vitals/I&O/Wt Last Vital Signs Temp 98.1 F 02/04/24 12:00 Pulse 70 02/04/24 12:00 Resp 16 02/04/24 12:00 BP 113/67 02/04/24 12:00 Pulse Ox 100 02/04/24 12:00 O2 Del Method Room Air 02/04/24 12:00 O2 Flow Rate 3 02/04/24 12:00 02/03/24 02/04/24 02/04/24 22:59 06:59 14:59 Intake Total 1120 / 2392.5 50.000 / 2442.500 Balance 1120 / 2392.5 50.000 / 2442.500 Weight last 48 hrs Weight 45.223 kg Weight 43.908 kg Weight 41.957 kg Weight 40.823 kg Physical Exam 2 Const: COMMON NORMALS: no acute distress and patient oriented x3 Resp: COMMON NORMALS: normal respiratory effort, No retractions, No use of accessory muscles and clear to auscultation bilaterally AUSCULTATION: clear to auscultation bilaterally Cardio: COMMON NORMALS: regular rate, regular rhythm, S1 normal heart sound present and S2 normal heart sound present RATE: regular rate RHYTHM: r egular rhythm HEART SOUNDS: S1 normal heart sound present and S2 normal heart sound present GI: COMMON NORMALS: Normal to inspection, nondistended, normoactive bowel sounds present and non-tender Extremity: COMMON NORMALS: no pedal edema Neuro: COMMON NORMALS: patient oriented x3 Psych: COMMON NORMALS: mental status grossly normal Data 02/04/24 04:24 02/04/24 04:24 Micro: Microbiology 02/03/24 18:32 Bacterial Antigens - Final Urine,Voided 02/02/24 00:10 Blood Culture - Preliminary Blood NEGATIVE TO DATE 02/02/24 00:00 Blood Culture - Preliminary Blood NEGATIVE TO DATE 02/03/24 01:40 Gram Stain - Final Sputum - Expectorated Sputum A&P Assessment and plan (1) Community acquired pneumonia: (2) Hypoxemia: (3) COPD (chronic obstructive pulmonary disease): (4) Cystitis: (5) Moderate protein-calorie malnutrition: (6) Muscle wasting: (7) Protein calorie malnutrition: Plan 88-year-old with a known history of COPD, baseline 3 L/min supplemental O2, currently presenting with increased oxygen requirements, currently on 5 L, increased cough, and chills earlier today. Chest x-ray currently showing right lower lobe infiltrate, suspicious for pneumonia 1. No evidence of pulmonary embolus. 2. Moderate to advanced chronic emphysematous changes. 3. Small LEFT and tiny RIGHT pleural effusions with compressive atelectasis in the lung bases and a few air bronchograms. Recommend correlation for pneumonia. 4. Moderate esophageal hiatal hernia. 5. Mild compression fracture T9 3 endplate new compared to 2018 with visualized fracture cleft. This may be subacute to chronic. Recommend correlation with low back pain. Anterior wedging at T10 and T11 also new compared to previous. Started on ceftriaxone 1 g IV every 24 hours and azithromycin 500 mg p.o. daily Follow blood cultures, urine cultures, sputum cultures Obtain urine bacterial antigen and urine Legionella antigen negative Normal lactate, Continue nebulization with DuoNeb 4 times daily, budesonide 0.5 twice daily patient states she does not take prednisone on a daily basis UA + for leukocye esterase ,nitrate, Pending urine cx. Empiric ceftriaxone for now Has evidence of protein calorie malnutrition, physical deconditioning, BMI 18.9 muscle wasting, PT OT, Ensure twice daily, consult nutrition, T9 compression fracture, continue monitoring, pain control plan for today continue IV antibiotics, continue to monitor closely, for UTI pneumonia monitor respiratory status Attestations 2 Medical Necessity Statement*: Patient requires hospitalization for UTI, pneumonia Diagnoses Community acquired pneumonia J18.9 Hypoxemia R09.02 COPD (chronic obstructive pulmonary disease) J44.9 Cystitis N30.90 Moderate protein-calorie malnutrition E44.0 Muscle wasting M62.50 Protein calorie malnutrition E46
[2024-02-04] MEDS: gabapentin 400 mg Capsule PO ×2 (16:20→20:04)
[2024-02-05] VITALS (11 sets, daily range): BP systolic 92–144; BP diastolic 56–75; PULSE 58–80; RESP 15–18; TEMP 36.6–37; O2SAT 93–97
[2024-02-05] MEDS: cefTRIAXone 1,000 MG in sodium chloride 0.9% (plus) 50 ML 100 MG IV (00:15)
[2024-02-05] MEDS: enoxaparin 40 mg/0.4 mL Syringe SUBCUT (00:16)
[2024-02-05 03:11] LABS: Basophils % 0.3 %; Eosinophils # 0.3 10^3/uL (0.0-0.8); Eosinophils % 5.6 %; Hematocrit 34.3 % (36-47); Lymphocytes % 17.5 %; Mean Corpuscular HGB Conc 32.4 g/dL (30-55); Mean Corpuscular Hemoglobin 31.5 pg (27-33); Mean Corpuscular Volume 97.4 fl (85-98); Mean Platelet Volume 10.4 fL (7.4-10.4); Monocytes # 0.6 10^3/uL (0.2-0.9); Monocytes % 10.3 %; Neutrophils # 3.91 10^3/uL (1.8-7.7); Nucleated Red Blood Cells % 0 %; Platelet Count 115 10^3/cmm (157-399); Red Blood Count 3.52 10^6/uL (3.85-5.65); Red Cell Distribution Width 13.3 % (12.1-15.1); White Blood Count 5.93 10^3/uL (3.29-11.43)
[2024-02-05 03:28] LABS: Anion Gap 11.3 (5-19); Blood Urea Nitrogen 6 mg/dL (8-23); Calcium 8.4 mg/dL (8.5-10.5); Carbon Dioxide 26 mmol/L (22-29); Chloride 100 mmol/L (98-107); Creatinine Clr Calc Pharmacy 35.4997; Glucose 90 mg/dL (65-115); Osmolality Calculated 275 mOsm/kg (285-295); Potassium 3.3 mmol/L (3.5-5.1); Sodium 134 mmol/L (136-145)
[2024-02-05] MEDS: ipratropium-albuterol 3 mL Neb INHALATION ×4 (08:18→19:45)
[2024-02-05] MEDS: budesonide 0.5 mg/2 mL Neb INHALATION ×2 (08:18→19:45)
[2024-02-05] MEDS: predniSONE 5 mg Tablet PO (09:20)
[2024-02-05] MEDS: potassium chloride ER 20 mEq Tablet PO (09:20)
[2024-02-05] MEDS: azithromycin 250 mg Tablet 500 MG PO (09:20)
[2024-02-05] MEDS: citalopram 20 mg Tablet PO (09:20)
[2024-02-05] MEDS: gabapentin 400 mg Capsule PO ×3 (09:20→21:32)
[2024-02-05] MEDS: oxybutynin chloride XL 5 MG TABLET 10 MG PO (09:20)
[2024-02-05] MEDS: montelukast sodium 10 mg Tablet PO (09:21)
[2024-02-05] MEDS: pantoprazole DR 40 mg Tablet PO (09:21)
--- NOTE | 2024-02-05 13:38 | P.PN_ITS ---
Subjective 2 Subjective: Patient was seen this morning, patient's daughter is at bedside, she does report a persistent cough, no fevers, no chills, no nausea, no vomiting, discussed her urine culture showing 2 gram-negative rods, she is at increased risk of ESBL infections however she has been afebrile she does not not report any dysuria no hematuria will continue to follow her urine cultures Vitals/I&O/Wt Last Vital Signs Temp 98.0 F 02/05/24 11:38 Pulse 73 02/05/24 12:00 Resp 16 02/05/24 12:00 BP 124/74 02/05/24 11:38 Pulse Ox 94 02/05/24 12:00 O2 Del Method Nasal Cannula 02/05/24 12:00 O2 Flow Rate 3 02/05/24 12:00 02/04/24 02/05/24 02/05/24 22:59 06:59 14:59 Intake Total 50 / 50 120 / 120 Balance 50 / 50 120 / 120 Weight last 48 hrs Weight 42.32 kg Weight 45.223 kg Physical Exam 2 Const: COMMON NORMALS: no acute distress and patient oriented x3 Resp: COMMON NORMALS: normal respiratory effort, No retractions, No use of accessory muscles and clear to auscultation bilaterally AUSCULTATION: clear to auscultation bilaterally Cardio: COMMON NORMALS: regular rate, regular rhythm, S1 normal heart sound present and S2 normal heart sound present RATE: regular rate RHYTHM: r egular rhythm HEART SOUNDS: S1 normal heart sound present and S2 normal heart sound present GI: COMMON NORMALS: Normal to inspection, nondistended, normoactive bowel sounds present and non-tender Extremity: COMMON NORMALS: no pedal edema Neuro: COMMON NORMALS: patient oriented x3 Psych: COMMON NORMALS: mental status grossly normal Data 02/05/24 02:00 02/05/24 02:00 Micro: Microbiology 02/03/24 01:40 Gram Stain - Final Sputum - Expectorated Sputum Sputum Culture - Final 02/03/24 18:32 Bacterial Antigens - Final Urine,Voided A&P Assessment and plan (1) Community acquired pneumonia: (2) Hypoxemia: (3) COPD (chronic obstructive pulmonary disease): (4) Cystitis: (5) Moderate protein-calorie malnutrition: (6) Muscle wasting: (7) Protein calorie malnutrition: Plan 88-year-old with a known history of COPD, baseline 3 L/min supplemental O2, currently presenting with increased oxygen requirements, currently on 5 L, increased cough, and chills earlier today. Chest x-ray currently showing right lower lobe infiltrate, suspicious for pneumonia 1. No evidence of pulmonary embolus. 2. Moderate to advanced chronic emphysematous changes. 3. Small LEFT and tiny RIGHT pleural effusions with compressive atelectasis in the lung bases and a few air bronchograms. Recommend correlation for pneumonia. 4. Moderate esophageal hiatal hernia. 5. Mild compression fracture T9 3 endplate new compared to 2018 with visualized fracture cleft. This may be subacute to chronic. Recommend correlation with low back pain. Anterior wedging at T10 and T11 also new compared to previous. Started on ceftriaxone 1 g IV every 24 hours and azithromycin 500 mg p.o. daily Follow blood cultures, urine cultures, sputum cultures Obtain urine bacterial antigen and urine Legionella antigen negative Normal lactate, Continue nebulization with DuoNeb 4 times daily, budesonide 0.5 twice daily patient states she does not take prednisone on a daily basis UA + for leukocye esterase ,nitrate, urine culture showing 2 gram-negative taylor species, continue Rocephin, however I am concerned for the risk of ESBL although currently patient is afebrile, no significant changes in her mentation, denies any dysuria no flank pain Has evidence of protein calorie malnutrition, physical deconditioning, BMI 18.9 muscle wasting, PT OT, Ensure twice daily, consult nutrition, T9 compression fracture, continue monitoring, pain control plan for today continue IV antibiotics, continue to monitor closely, for UTI pneumonia monitor respiratory status Attestations 2 Medical Necessity Statement*: Patient requires hospitalization for hypoxia, UTI, pneumonia Diagnoses Community acquired pneumonia J18.9 Hypoxemia R09.02 COPD (chronic obstructive pulmonary disease) J44.9 Cystitis N30.90 Moderate protein-calorie malnutrition E44.0 Muscle wasting M62.50 Protein calorie malnutrition E46
[2024-02-06] VITALS (11 sets, daily range): BP systolic 115–136; BP diastolic 66–74; PULSE 73–85; RESP 16–18; TEMP 36.4–36.8; O2SAT 92–95
[2024-02-06] MEDS: enoxaparin 40 mg/0.4 mL Syringe SUBCUT (00:40)
[2024-02-06] MEDS: cefTRIAXone 1,000 MG in sodium chloride 0.9% (plus) 50 ML 100 MG IV (00:40)
[2024-02-06 04:31] LABS: Positive C 1
[2024-02-06 04:32] LABS: Basophils % 0.4 %; Eosinophils # 0.3 10^3/uL (0.0-0.8); Eosinophils % 4.7 %; Hematocrit 34.4 % (36-47); Lymphocytes # 1.8 10^3/uL (0.8-4.8); Lymphocytes % 34.5 %; Mean Corpuscular HGB Conc 32.6 g/dL (30-55); Mean Corpuscular Hemoglobin 31.8 pg (27-33); Mean Corpuscular Volume 97.7 fl (85-98); Mean Platelet Volume 10.3 fL (7.4-10.4); Monocytes # 0.7 10^3/uL (0.2-0.9); Monocytes % 12.2 %; Neutrophils # 2.57 10^3/uL (1.8-7.7); Nucleated Red Blood Cells % 0 %; Platelet Count 141 10^3/cmm (157-399); Red Blood Count 3.52 10^6/uL (3.85-5.65); Red Cell Distribution Width 13.2 % (12.1-15.1); White Blood Count 5.34 10^3/uL (3.29-11.43)
[2024-02-06 04:59] LABS: Anion Gap 13.2 (5-19); Blood Urea Nitrogen 4 mg/dL (8-23); Calcium 8.6 mg/dL (8.5-10.5); Carbon Dioxide 24 mmol/L (22-29); Chloride 103 mmol/L (98-107); Creatinine Clr Calc Pharmacy 34.5915; Glucose 90 mg/dL (65-115); Osmolality Calculated 280 mOsm/kg (285-295); Potassium 3.2 mmol/L (3.5-5.1); Sodium 137 mmol/L (136-145)
[2024-02-06] MEDS: ipratropium-albuterol 3 mL Neb INHALATION ×3 (08:32→19:48)
[2024-02-06] MEDS: budesonide 0.5 mg/2 mL Neb INHALATION ×2 (08:32→19:48)
[2024-02-06] MEDS: oxybutynin chloride XL 5 MG TABLET 10 MG PO (10:19)
[2024-02-06] MEDS: predniSONE 5 mg Tablet PO (10:19)
[2024-02-06] MEDS: montelukast sodium 10 mg Tablet PO (10:19)
[2024-02-06] MEDS: potassium chloride ER 20 mEq Tablet PO (10:19)
[2024-02-06] MEDS: pantoprazole DR 40 mg Tablet PO (10:19)
[2024-02-06] MEDS: gabapentin 400 mg Capsule PO ×3 (10:20→21:16)
[2024-02-06] MEDS: citalopram 20 mg Tablet PO (10:20)
--- NOTE | 2024-02-06 14:57 | P.PN_ITS ---
Subjective 2 Subjective: Patient was seen this morning, no fevers, no chills, does have a cough Vitals/I&O/Wt Last Vital Signs Temp 97.9 F 02/06/24 12:57 Pulse 78 02/06/24 12:57 Resp 18 02/06/24 12:57 BP 115/71 02/06/24 12:57 Pulse Ox 93 02/06/24 12:57 O2 Del Method Nasal Cannula 02/06/24 12:57 O2 Flow Rate 3 02/06/24 08:25 02/05/24 02/06/24 02/06/24 22:59 06:59 14:59 Intake Total 210 / 450 50 / 500 480 / 480 Balance 210 / 450 50 / 500 480 / 480 Weight last 48 hrs Weight 41.05 kg Weight 42.32 kg Physical Exam 2 Const: COMMON NORMALS: no acute distress and patient oriented x3 Resp: COMMON NORMALS: normal respiratory effort, No retractions, No use of accessory muscles and clear to auscultation bilaterally AUSCULTATION: clear to auscultation bilaterally Cardio: COMMON NORMALS: regular rate, regular rhythm, S1 normal heart sound present and S2 normal heart sound present RATE: regular rate RHYTHM: r egular rhythm HEART SOUNDS: S1 normal heart sound present and S2 normal heart sound present GI: COMMON NORMALS: Normal to inspection, nondistended, normoactive bowel sounds present and non-tender Extremity: COMMON NORMALS: no calf tenderness and no pedal edema Neuro: COMMON NORMALS: patient oriented x3 Psych: COMMON NORMALS: mental status grossly normal Data 02/06/24 03:28 02/06/24 03:28 Micro: Microbiology 02/03/24 01:40 Gram Stain - Final Sputum - Expectorated Sputum Sputum Culture - Final A&P Assessment and plan (1) Community acquired pneumonia: (2) Hypoxemia: (3) COPD (chronic obstructive pulmonary disease): (4) Cystitis: (5) Moderate protein-calorie malnutrition: (6) Muscle wasting: (7) Protein calorie malnutrition: Plan 88-year-old with a known history of COPD, baseline 3 L/min supplemental O2, currently presenting with increased oxygen requirements, currently on 5 L, increased cough, and chills earlier today. Chest x-ray currently showing right lower lobe infiltrate, suspicious for pneumonia 1. No evidence of pulmonary embolus. 2. Moderate to advanced chronic emphysematous changes. 3. Small LEFT and tiny RIGHT pleural effusions with compressive atelectasis in the lung bases and a few air bronchograms. Recommend correlation for pneumonia. 4. Moderate esophageal hiatal hernia. 5. Mild compression fracture T9 3 endplate new compared to 2018 with visualized fracture cleft. This may be subacute to chronic. Recommend correlation with low back pain. Anterior wedging at T10 and T11 also new compared to previous. on ceftriaxone 1 g IV every 24 hours and completed azithromycin 500 mg p.o. daily Follow blood cultures, urine cultures, sputum cultures Obtain urine bacterial antigen and urine Legionella antigen negative Normal lactate, Continue nebulization with DuoNeb 4 times daily, budesonide 0.5 twice daily patient states she does not take prednisone on a daily basis UA + for leukocye esterase ,nitrate, urine culture showing 2 gram-negative taylor species, continue Rocephin, however I am concerned for the risk of ESBL although currently patient is afebrile, no significant changes in her mentation, denies any dysuria no flank pain Has evidence of protein calorie malnutrition, physical deconditioning, BMI 18.9 muscle wasting, PT OT, Ensure twice daily, consult nutrition, T9 compression fracture, continue monitoring, pain control plan for today continue IV antibiotics, continue to monitor closely, for UTI pneumonia monitor respiratory status, spoke to patient spoke to nursing staff, reviewed blood work, following cultures Attestations 2 Medical Necessity Statement*: Patient requires hospitalization for UTI requiring IV antibiotics, Diagnoses Community acquired pneumonia J18.9 Hypoxemia R09.02 COPD (chronic obstructive pulmonary disease) J44.9 Cystitis N30.90 Moderate protein-calorie malnutrition E44.0 Muscle wasting M62.50 Protein calorie malnutrition E46
[2024-02-06] MEDS: guaiFENesin 600 mg Tablet PO (18:19)
[2024-02-06] MEDS: HYDROcodone-acetaminophen 5-325 mg Tablet 1 TAB PO (21:16)
[2024-02-07] VITALS (8 sets, daily range): BP systolic 107–132; BP diastolic 65–76; PULSE 69–81; RESP 16–18; TEMP 36.5–36.7; O2SAT 92–95
[2024-02-07] MEDS: enoxaparin 40 mg/0.4 mL Syringe SUBCUT (01:32)
[2024-02-07] MEDS: cefTRIAXone 1,000 MG in sodium chloride 0.9% (plus) 50 ML 100 MG IV (01:32)
[2024-02-07 06:19] LABS: Basophils % 0.7 %; Eosinophils # 0.5 10^3/uL (0.0-0.8); Eosinophils % 8.9 %; Hematocrit 35.3 % (36-47); Lymphocytes # 2.5 10^3/uL (0.8-4.8); Lymphocytes % 43.3 %; Mean Corpuscular HGB Conc 32.9 g/dL (30-55); Mean Corpuscular Hemoglobin 31.8 pg (27-33); Mean Corpuscular Volume 96.7 fl (85-98); Mean Platelet Volume 9.8 fL (7.4-10.4); Monocytes # 0.7 10^3/uL (0.2-0.9); Monocytes % 11.9 %; Neutrophils # 1.99 10^3/uL (1.8-7.7); Nucleated Red Blood Cells % 0 %; Platelet Count 143 10^3/cmm (157-399); Red Blood Count 3.65 10^6/uL (3.85-5.65); Red Cell Distribution Width 13.2 % (12.1-15.1)
[2024-02-07 06:35] LABS: Anion Gap 12.5 (5-19); Blood Urea Nitrogen 4 mg/dL (8-23); Calcium 8.6 mg/dL (8.5-10.5); Carbon Dioxide 26 mmol/L (22-29); Chloride 100 mmol/L (98-107); Creatinine Clr Calc Pharmacy 33.9815; Glucose 104 mg/dL (65-115); Osmolality Calculated 277 mOsm/kg (285-295); Potassium 3.5 mmol/L (3.5-5.1); Sodium 135 mmol/L (136-145)
[2024-02-07] MEDS: guaiFENesin 600 mg Tablet PO (08:45)
[2024-02-07] MEDS: pantoprazole DR 40 mg Tablet PO (08:46)
[2024-02-07] MEDS: gabapentin 400 mg Capsule PO (08:46)
[2024-02-07] MEDS: oxybutynin chloride XL 5 MG TABLET 10 MG PO (08:46)
[2024-02-07] MEDS: predniSONE 5 mg Tablet PO (08:46)
[2024-02-07] MEDS: montelukast sodium 10 mg Tablet PO (08:46)
[2024-02-07] MEDS: citalopram 20 mg Tablet PO (08:46)
[2024-02-07] MEDS: budesonide 0.5 mg/2 mL Neb INHALATION (09:28)
[2024-02-07] MEDS: ipratropium-albuterol 3 mL Neb INHALATION ×2 (09:28→11:16)
[2024-02-07 12:01] LABS: SARS Covid-2 Antigen negative (Negative)
--- NOTE | 2024-02-07 12:21 | PM.DCS ---
Discharge Providers Date of Admission: 02/03/24 06:52 Date of Discharge: February 07, 2024 Attending Provider at Admission: Fanny Reyes MD Attending Provider at Discharge: Darius Taylor MD Primary Care Provider: Pete Hobbs DO Diagnoses at Discharge Discharge Diagnosis (1) Community acquired pneumonia: Status: Acute (2) Hypoxemia: Status: Acute (3) COPD (chronic obstructive pulmonary disease): Status: Acute (4) Cystitis: Status: Acute (5) Moderate protein-calorie malnutrition: Status: Acute (6) Muscle wasting: Status: Acute (7) Protein calorie malnutrition: Status: Acute Reason for Visit Reason for Visit: pneumonia Hospital Course Hospital Course Erin Xie is a 88 year old female, currently a long-term resident at [facility]. She presented to the podiatry office earlier this morning for a routine visit where she was noted to have shaking chills and was sent into the emergency room for evaluation. At that time her vital signs were all within normal range, she was found to have a positive UA for which she had already been taking Bactrim as an outpatient and was additionally found to have a right lower lobe pneumonia. She was recommended admission, however elected to return home. He was then discharged on Levaquin. She was sent back from the facility this evening after she was noted to be requiring more oxygen than at her baseline. Typically patient needs 3 L/min supplemental O2 for COPD, now requiring 4 L/min to maintain O2 sats. She was additionally now noted to be hypotensive with blood pressure systolic in the 90s and was sent back to the emergency room. Review of systems is positive for cough, no pascale fever, dysuria and chills earlier today. Patient was admitted to [facility], for pneumonia, UTI, received broad-spectrum antibiotic therapy, overall clinically improved, urine culture showing E. coli species, discharged on 5 remaining days of cefdinir. Patient was discharged to custodial facility. Patient was found to have a T9 and plate fracture, denies any upper thoracic pain, follow-up with primary care provider as outpatient Physical Exam Const: COMMON NORMALS: no acute distress and patient oriented x3 Resp: COMMON NORMALS: normal respiratory effort, No retractions, No use of accessory muscles and clear to auscultation bilaterally AUSCULTATION: clear to auscultation bilaterally Cardio: COMMON NORMALS: regular rate, regular rhythm, S1 normal heart sound present and S2 normal heart sound present RATE: regular rate RHYTHM: regular rhythm HEART SOUNDS: S1 normal heart sound present and S2 normal heart sound present GI: COMMON NORMALS: Normal to inspection, nondistended, normoactive bowel sounds present and non-tender Extremity: COMMON NORMALS: no pedal edema Neuro: COMMON NORMALS: patient oriented x3 Psych: COMMON NORMALS: mental status grossly normal Discharge Data Studies Completed and Pending Completed Studies During Hospitalization Category Date Time Status CT angio chest PE protcl [id number] Routine Cat Scan 02/03/24 08:51 Completed XR chest 1V portable [id number] Urgent Exams 02/02/24 23:15 Completed Pending at discharge Category Date Time Status Blood Culture Stat Lab 02/02/24 00:10 Results Radiology Impressions Chest X-Ray 02/02/24 23:15 IMPRESSION: Suspect right lower lung infiltrate, increased in conspicuity compared to prior. Laboratory Results WBC 5.70 10^3/uL (3.29-11.43) 02/07/24 05:45 RBC 3.65 10^6/uL (3.85-5.65) L 02/07/24 05:45 Hgb 11.60 g/dL (11.27-16.99) 02/07/24 05:45 Hct 35.3 % (36-47) L 02/07/24 05:45 MCV 96.7 fl (85-98) 02/07/24 05:45 MCH 31.8 pg (27-33) 02/07/24 05:45 MCHC 32.9 g/dL (30-55) 02/07/24 05:45 RDW 13.2 % (12.1-15.1) 02/07/24 05:45 Plt Count 143 10^3/cmm (157-399) L 02/07/24 05:45 MPV 9.8 fL (7.4-10.4) 02/07/24 05:45 Neut % (Auto) 35.0 % 02/07/24 05:45 Lymph % (Auto) 43.3 % 02/07/24 05:45 [place] % (Auto) 11.9 % 02/07/24 05:45 Eos % (Auto) 8.9 % 02/07/24 05:45 Baso % (Auto) 0.7 % 02/07/24 05:45 Neut # (Auto) 1.99 10^3/uL (1.8-7.7) 02/07/24 05:45 Lymph # (Auto) 2.5 10^3/uL (0.8-4.8) 02/07/24 05:45 [place] # (Auto) 0.7 10^3/uL (0.2-0.9) 02/07/24 05:45 Eos # (Auto) 0.5 10^3/uL (0.0-0.8) 02/07/24 05:45 Baso # (Auto) 0.0 10^3/uL (0.0-0.1) 02/07/24 05:45 Nucleated RBC % (auto) 0 % 02/07/24 05:45 Nucleated RBCs # 0.0 /100WBC 02/07/24 05:45 D-Dimer 3.93 ug/mLFEU (0-0.59) H 02/03/24 05:21 Sodium 135 mmol/L (136-145) L 02/07/24 05:45 Potassium 3.5 mmol/L (3.5-5.1) 02/07/24 05:45 Chloride 100 mmol/L (98-107) 02/07/24 05:45 Carbon Dioxide 26 mmol/L (22-29) 02/07/24 05:45 Anion Gap 12.5 (5-19) 02/07/24 05:45 BUN 4 mg/dL (8-23) L 02/07/24 05:45 Creatinine 0.5 mg/dL (0.5-0.9) 02/07/24 05:45 GFR Calculation Not Reportable 02/07/24 05:45 Glucose 104 mg/dL (65-115) 02/07/24 05:45 Calculated Osmolality 277 mOsm/kg (285-295) L 02/07/24 05:45 Lactic Acid 1.7 mmol/L (0.5-2.2) 02/02/24 22:53 Calcium 8.6 mg/dL (8.5-10.5) 02/07/24 05:45 Total Bilirubin 0.3 mg/dL (0.15-1.2) 02/04/24 04:24 AST 29 U/L (0-32) 02/04/24 04:24 ALT 20 U/L (0-33) 02/04/24 04:24 Alkaline Phosphatase 72 U/L (35-105) 02/04/24 04:24 C-Reactive Protein 37.8 mg/L (0.0-4.9) H 02/02/24 22:53 Total Protein 5.0 g/dL (6.6-8.7) L 02/04/24 04:24 Albumin 3.0 g/dL (3.5-5.2) L 02/04/24 04:24 Globulin 2.0 g/dL (1.3-4.6) 02/04/24 04:24 Adenovirus (PCR) Not detected (NOT DETECT) 02/02/24 23:30 C. pneumoniae DNA (PCR) Not detected (NOT DETECT) 02/02/24 23:30 Coronavirus 229E (PCR) Not detected (NOT DETECT) 02/02/24 23:30 Human Metapneumovir PCR Not detected (NOT DETECT) 02/02/24 23:30 Influenza A (H1) PCR Not detected (NOT DETECT) 02/02/24 23:30 Influ A (H1/09) PCR Not detected (NOT DETECT) 02/02/24 23:30 Influenza A (H3) PCR Not detected (NOT DETECT) 02/02/24 23:30 Influenza Type A (PCR) Not detected (NOT DETECT) 02/02/24 23:30 Influenza Type B (PCR) Not detected (NOT DETECT) 02/02/24 23:30 M. pneumoniae (PCR) Not detected (NOT DETECT) 02/02/24 23:30 Parainfluenza 1 (PCR) Not detected (NOT DETECT) 02/02/24 23:30 Parainfluenza 2 (PCR) Not detected (NOT DETECT) 02/02/24 23:30 Parainfluenza 3 (PCR) Not detected (NOT DETECT) 02/02/24 23:30 Parainfluenza 4 (PCR) Not detected (NOT DETECT) 02/02/24 23:30 RSV Type A (PCR) Not detected (NOT DETECT) 02/02/24 23:30 RSV Type B (PCR) Not detected (NOT DETECT) 02/02/24 23:30 Entero/Rhino (PCR) Not detected (NOT DETECT) 02/02/24 23:30 SARS-CoV-2 (PCR) Not detected (NOT DETECT) 02/02/24 23:30 SARS-CoV-2 Ag (Rapid) negative (Negative) 02/07/24 11:39 Vitals Last Vital Signs Temp 97.9 F 02/07/24 12:16 Pulse 77 02/07/24 12:16 Resp 18 02/07/24 12:16 BP 107/65 02/07/24 12:16 Pulse Ox 95 02/07/24 12:16 O2 Del Method Nasal Cannula 02/07/24 12:16 O2 Flow Rate 2 02/07/24 11:31 Discharge Plan Discharge Patient Disposition: Xfer [facility] Condition: Stable Prescriptions: New cefdinir 300 mg capsule 300 mg PO BID 5 Days Qty: 10 0RF gabapentin 400 mg Capsule 400 mg PO TID 30 Days Qty: 90 0RF Continued citalopram 20 mg tablet 20 mg PO DAILY ipratropium-albuterol 0.5 mg-3 mg(2.5 mg base)/3 mL solution for nebulization 3 ml INHALATION QID albuterol sulfate 2.5 mg /3 mL (0.083 %) Solution For Nebulization 2.5 mg inhalation PRN PRN (Reason: Respiratory Distress) oxybutynin chloride 10 mg tablet extended release 24hr 10 mg PO DAILY hydrocodone-acetaminophen [[place]] 5-325 mg Tablet 1 - 2 tab PO Q4H PRN (Reason: Pain) polyvinyl alcohol [Artificial Tears (polyvin alc)] 1.4 % Drops See Rx Instructions .ROUTE .COMPLEX Rx Instructions: as directed both eyes as needed for eye dryness ondansetron HCl [Zofran] 4 mg Tablet 4 mg PO Q6H PRN (Reason: Nausea And Vomiting) prednisone 5 mg Tablet 5 mg PO DAILY lorazepam 0.5 mg tablet 0.5 mg PO Q4H PRN (Reason: Anxiety) magnesium hydroxide [Milk of Magnesia] 400 mg/5 mL Suspension 30 ml PO DAILY PRN (Reason: Constipation) hyoscyamine sulfate 0.125 mg Tablet,Disintegrating 0.125 mg PO Q4H PRN (Reason: Secretions) bisacodyl [Bisac-Evac] 10 mg Suppository 10 mg IN DAILY PRN (Reason: Constipation) Fleet Enema 19-7 gram/118 mL Enema 118 ml IN DAILY PRN (Reason: Constipation) omeprazole [Prilosec] 20 mg Capsule,Delayed Release(Dr/Ec) 20 mg PO DAILY budesonide 0.5 mg/2 mL suspension for nebulization 0.5 mg inhalation Q12H montelukast [Singulair] 10 mg Tablet 10 mg PO DAILY codeine-guaifenesin [Virtussin AC] 10-100 mg/5 mL Liquid 2 ml PO TID PRN (Reason: Cough) Culturelle 10 billion cell Capsule 1 cap PO DAILY PRN (Reason: while on antibiotics) ivzrltkbzxqi-togdfmyo-lvhqcfu 1-0.5-0.075 % Drops,Suspension 1 drp OPHTHALMIC (EYE) TID Rx Instructions: left eye Prevagen Extra Strength 1 cap PO DAILY acetaminophen 325 mg tablet 650 mg PO QID PRN (Reason: Fever Or Pain) Discontinued gabapentin 600 mg tablet 900 mg PO TID sulfamethoxazole-trimethoprim 800-160 mg tablet 1 tab PO BID Discharge Orders: Discharge Order (Routine); Ordered 02/07/24 Ordered By: Darius Taylor Referrals: [facility] [Outside] Pete Hobbs DO [Primary Care Provider] - Discharge Diet: Cardiac Discharge Activity: Resume usual activity Patient Instructions: Opioid Safety Discharge Attestations Time Spent in Discharge Care*: greater than 30 min Quality Metrics Clinical Quality Measures [ No reported AMI, CVA or VTE this stay] Coding Level of Care Code 05141 Total time (in minutes) for Discharge: 45 Diagnoses Community acquired pneumonia J18.9 Hypoxemia R09.02 COPD (chronic obstructive pulmonary disease) J44.9 Cystitis N30.90 Moderate protein-calorie malnutrition E44.0 Muscle wasting M62.50 Protein calorie malnutrition E46
--- NOTE | 2024-02-07 13:43 | PC.NURSE ---
Report called to Janie Christensen LPN at 1322. Family is going to transport patient to facility
--- NOTE | 2024-02-07 14:17 | PC.SOCIAL ---
IMM Update Pg. 2 of IMM updated and reviewed. Copy provided.
== END 2024-02-07 14:15 | disposition home or self-care (01) | DRG 190 ==
LOC: ER 02-03 00:21 → MEDSURG 02-03 00:28
PROVIDERS: Admitting Provider Student in an Organized Health Care Education/Training Program; Emergency Provider Physician Assistant; PCP Internal Medicine; Visit Provider Family Medicine
DX: J44.0 Chronic obstructive pulmonary disease with (acute) lower respiratory infection (principal); J18.9 Pneumonia, unspecified organism; S22.070A Wedge compression fracture of T9-T10 vertebra, initial encounter for closed fracture; E44.0 Moderate protein-calorie malnutrition; Z68.1 Body mass index [BMI] 19.9 or less, adult; E87.1 Hypo-osmolality and hyponatremia; N30.90 Cystitis, unspecified without hematuria; B96.20 Unspecified Escherichia coli [E. coli] as the cause of diseases classified elsewhere; M62.50 Muscle wasting and atrophy, not elsewhere classified, unspecified site; R53.81 Other malaise; Z99.81 Dependence on supplemental oxygen; I95.9 Hypotension, unspecified; Z72.0 Tobacco use; Z79.52 Long term (current) use of systemic steroids; F41.9 Anxiety disorder, unspecified; K21.9 Gastro-esophageal reflux disease without esophagitis; M54.9 Dorsalgia, unspecified; G89.29 Other chronic pain; F10.90 Alcohol use, unspecified, uncomplicated; X58.XXXA Exposure to other specified factors, initial encounter
CPT/HCPCS: 36415; 71045; 71275; 80048; 80053; 81001; 83605; 83690; 84145; 85025; 85378; 86140; 86403; 87040; 87070; 87077; 87086; 87186; 87205; 87426; 87486; 87581; 87633; 93005; 94640; 96365; 96372; 97110; 97116; 97161; 97165; 97530; 99285; G0378; J0696; J1650; J7030; J7040; J7512; J7626; Q0144; Q9967

== ENCOUNTER → 2024-02-09 14:05 | Outpatient (BNVA) | payer MEDICARE, MEDICAID, SELFPAY | PROVIDERS: PCP Internal Medicine; Visit Provider Podiatrist Foot & Ankle Surgery | DX: L60.8 Other nail disorders (principal); I73.9 Peripheral vascular disease, unspecified; L60.3 Nail dystrophy | CPT/HCPCS: 11721 ==

== ENCOUNTER → 2024-04-03 13:11 | Outpatient (BNVA) | payer MEDICARE, MEDICAID, SELFPAY | PROVIDERS: PCP Internal Medicine; Visit Provider Podiatrist Foot & Ankle Surgery | DX: L60.8 Other nail disorders (principal); I73.9 Peripheral vascular disease, unspecified; L60.3 Nail dystrophy | CPT/HCPCS: 11721 ==

== ENCOUNTER → 2024-07-04 12:47 | Outpatient (BNVA) | payer MEDICARE, MEDICAID, SELFPAY | PROVIDERS: PCP Internal Medicine; Visit Provider Podiatrist Foot & Ankle Surgery | DX: I73.9 Peripheral vascular disease, unspecified (principal); L60.3 Nail dystrophy | CPT/HCPCS: 11721 ==

== ENCOUNTER 2024-07-26 13:00 | Inpatient (IN) | payer MEDICARE, MEDICAID, SELFPAY ==
[2024-07-26] VITALS (9 sets, daily range): BP systolic 87–123; BP diastolic 62–83; PULSE 60–94; RESP 15–18; TEMP 36.4–36.6; O2SAT 94–97; BMI 15.2
--- NOTE | 2024-07-26 13:15 | ECG_ITS ---
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 Booking: : [id number] Requested By: Sally Escalona Order Number: [id number] Reading MD: SAL CASSIDY Measurements Intervals [place] Rate: 84 P: 71 NM: 159 QRS: 265 QRSD: 96 T: 82 QT: 396 QTc: 470 Interpretive Statements SINUS RHYTHM WITH SINUS ARRHYTHMIA PATTERN CONSISTENT WITH PULMONARY DISEASE RIGHT VENTRICULAR HYPERTROPHY [SOME/ALL OF: PROMINENT R IN V1, LATE TRANSITION, RAD, LUIS, SSS] POSSIBLE SEPTAL MYOCARDIAL INFARCTION , OF INDETERMINATE AGE [30 ms Q WAVE IN V1/V2] INTERPRETATION BASED ON A DEFAULT AGE OF 40 YEARS Compared to ECG 02/02/2024 14:19:26 Atrial abnormality now present Myocardial infarct finding now present Electronically Signed On 07-26-2024 20:05:02 CDT by SAL CASSIDY [id number]
--- NOTE | 2024-07-26 15:23 | XR_ITS ---
WS: [id number] XR chest 1V portable [id number] REASON FOR EXAM: Weakness FINDINGS: Moderate tortuosity and ectasia of the thoracic aorta with normal heart size. Mild hyperexpansion of the lungs with vague lucencies and linear interstitial opacities compatible wi th central lobar emphysema. Calcified granulomas disease. No focal lung lesion. No acute pulmonary parenchymal or pleural abnormality. Mild levoscoliosis of the thoracic spine with moderate degenerative spondylosis in the mid thoracic s pine. Moderate biconcave compression deformity of T10. Multiple old right rib fractures. XR/XR chest 1V portable [id number] IMPRESSION: No acute chest abnormality as above.
--- NOTE | 2024-07-26 15:25 | ED_ITS ---
HPI - Weakness 2 General: Chief complaint: Weakness Stated complaint: weakness Time Seen by Provider: 07/26/24 15:20 History of Present Illness: 88-year-old female with a history of [employer] D recurrent UTIs, chronic back pain, who presents to the emergency room with weakness. She had vomiting all day yesterday. Family states that the assisted living at which she stays I called him and said she needed to go to urgent care or to the emergency room. Blood pressure was a bit soft on presentation. She is not had any abdominal pain. Currently not feeling nauseous. No fevers. No altered mental status. No focal motor deficits. No chest pain. No shortness of breath. Review of Systems 2 Narrative: Constitutional symptoms: Negative except as documented in HPI. Skin symptoms: Negative except as documented in HPI. Eye symptoms: Negative except as documented in HPI. ENMT symptoms: Negative except as documented in HPI. Respiratory symptoms: Negative except as documented in HPI. Cardiovascular symptoms: Negative except as documented in HPI. Gastrointestinal symptoms: Negative except as documented in HPI. Genitourinary symptoms: Negative except as documented in HPI. Musculoskeletal symptoms: Negative except as documented in HPI. Neurologic symptoms: Negative except as documented in HPI. Psychiatric symptoms: Negative except as documented in HPI. Endocrine symptoms: Negative except as documented in HPI. PFSH ED 2 PFSH: Medical History Recurrent UTI Mixed stress and urge urinary incontinence Fracture of superior pubic ramus Inferior pubic ramus fracture Chronic back pain Macular degeneration Depression DJD (degenerative joint disease) Alcohol use Discussed abstinence, increase of fall risk with alcohol Tobacco dependency Discussed abstinence Peripheral neuropathy COPD (chronic obstructive pulmonary disease) Surgical History History of lumbar fusion S/P ORIF (open reduction internal fixation) fracture Left hip History of appendectomy History of hernia surgery History of cataract surgery History of total abdominal hysterectomy and bilateral salpingo-oophorectomy Family History Father Brain tumor Social History Smoking and tobacco/nicotine status: current some day tobacco/nicotine user ( patient smokes 3-4 cig a month) cigarettes Alcohol intake: current Alcohol type: beer and hard liquor Substance/Drug Use: never Marital status: / Current occupational status: retired Physical Exam 2 Narrative: EXAM NARRATIVE: General: Alert, no distress Skin: Warm, dry. Head: Normocephalic, atraumatic. Neck: Supple, trachea midline. Eye: Extraocular movements are intact. Ears, nose, mouth and throat: Tacky oral mucosa Cardiovascular: Regular, Normal peripheral perfusion. Respiratory: Lungs are clear to auscultation, respirations are non-labored, breath sounds are equal, Symmetrical chest wall expansion. Gastrointestinal: Soft, Nontender, Non distended Musculoskeletal: Normal ROM, no deformity. Neurological: Alert and oriented, No focal neurological deficit observed. Psychiatric: Cooperative, appropriate mood & affect. Course 2 Vital Signs: Vital signs: Vital Signs Temperature 97.8 F 07/26/24 13:06 Pulse Rate 94 07/26/24 16:30 Respiratory Rate 15 07/26/24 16:30 Blood Pressure 105/62 07/26/24 13:06 Pulse Oximetry 96 07/26/24 16:30 Oxygen Delivery Me thod Nasal Cannula 07/26/24 16:30 Oxygen Flow Rate 3 07/26/24 16:30 MDM - Weakness Medical Decision Making Medical decision making: Differential diagnosis for patient presenting with generalized weakness including but not limited to and based on the above HPI, review of systems and physical exam: Sepsis. Dehydration. Renal failure. Electrolyte abnormalities. Anemia. Congestive heart failure. Hypotension. Coronary syndrome. Hepatitis. Cirrhosis. Infections such as pneumonia, urinary tract infection, [place] illness, Cellulitis, Viral infections including influenza and Covid-19. Workup: labwork and lab/exam driven imaging ordered to evaluate, rule in and rule out above pathologies. Chest x-ray: Vertebral hardware in place. No acute process. No infiltrate. No pneumothorax. This was reviewed and interpreted by myself the ER physician. EKG: Time 1313. Rate 84. Normal sinus rhythm, No ST-T changes, no ectopy, normal OH & QRS intervals, This was reviewed and interpreted by myself the ER physician at 1317. Lab Review: Laboratory results were reviewed and interpreted by myself the emergency room physician. White count is 10. Hemoglobin is 14.5. BUN and creatinine are normal at 13 and 0.8. Sodium is quite low at 123. Patient does have a urinary tract infection. Nitrite positive. 21-50 whites. 4+ bacteria. I reviewed the patient's medical record. Reexamination: Patient remained stable. No increased work of breathing. No altered mental status. No focal motor deficits. Blood pressure still bit low. Currently systolic is in the 80s Consultation: I spoke with Dr. Taylor who is on-call for the hospitalist service who agrees to admission. Assessment and plan: Hyponatremia Dehydration Urinary tract infection Hypotension -IV Rocephin, IV normal saline bolus and starting maintenance fluids. ? I discussed the patient with the hospitalist on-call who is admitting the patient. - Discussed findings and plan with patient. Answered any questions. - All laboratory values were reviewed and interpreted personally by myself, the ER physician - All imaging was reviewed and interpreted personally by myself, the ER physician. - Evaluation and treatment of this problem were appropriate in the emergency setting Lab Data 07/26/24 15:40 07/26/24 15:40 Radiology Impressions Chest X-Ray 07/26/24 15:23 IMPRESSION: No acute chest abnormality as above. Laboratory Results WBC 10.09 10^3/uL (3.29-11.43) 07/26/24 15:40 RBC 4.40 10^6/uL (3.85-5.65) 07/26/24 15:40 Hgb 14.50 g/dL (11.27-16.99) 07/26/24 15:40 Hct 42.7 % (36-47) 07/26/24 15:40 MCV 97.0 fl (85-98) 07/26/24 15:40 MCH 33.0 pg (27-33) 07/26/24 15:40 MCHC 34.0 g/dL (30-55) 07/26/24 15:40 RDW 12.8 % (12.1-15.1) 07/26/24 15:40 Plt Count 208 10^3/cmm (157-399) 07/26/24 15:40 MPV 9.9 fL (7.4-10.4) 07/26/24 15:40 Neut % (Auto) 73.8 % 07/26/24 15:40 Lymph % (Auto) 16.9 % 07/26/24 15:40 [place] % (Auto) 7.8 % 07/26/24 15:40 Eos % (Auto) 0.4 % 07/26/24 15:40 Baso % (Auto) 0.6 % 07/26/24 15:40 Neut # (Auto) 7.44 10^3/uL (1.8-7.7) 07/26/24 15:40 Lymph # (Auto) 1.7 10^3/uL (0.8-4.8) 07/26/24 15:40 [place]rill # (Auto) 0.8 10^3/uL (0.2-0.9) 07/26/24 15:40 Eos # (Auto) 0.0 10^3/uL (0.0-0.8) 07/26/24 15:40 Baso # (Auto) 0.1 10^3/uL (0.0-0.1) 07/26/24 15:40 Nucleated RBC % (auto) 0 % 07/26/24 15:40 Nucleated RBCs # 0.0 /100WBC 07/26/24 15:40 Sodium 123 mmol/L (136-145) L 07/26/24 15:40 Potassium 4.0 mmol/L (3.5-5.1) 07/26/24 15:40 Chloride 87 mmol/L (98-107) L 07/26/24 15:40 Carbon Dioxide 24 mmol/L (22-29) 07/26/24 15:40 Anion Gap 16.0 (5-19) 07/26/24 15:40 BUN 13 mg/dL (8-23) 07/26/24 15:40 Creatinine 0.8 mg/dL (0.5-0.9) 07/26/24 15:40 GFR Calculation Not Reportable 07/26/24 15:40 Glucose 102 mg/dL (65-115) 07/26/24 15:40 Calculated Osmolality 256 mOsm/kg (285-295) L 07/26/24 15:40 Lactic Acid 1.7 mmol/L (0.5-2.2) 07/26/24 15:40 Calcium 8.9 mg/dL (8.5-10.5) 07/26/24 15:40 Total Bilirubin 0.9 mg/dL (0.15-1.2) 07/26/24 15:40 AST 19 U/L (0-32) 07/26/24 15:40 ALT 6 U/L (0-33) 07/26/24 15:40 Alkaline Phosphatase 71 U/L (35-105) 07/26/24 15:40 C-Reactive Protein 3.0 mg/L (0.0-4.9) 07/26/24 15:40 Total Protein 7.0 g/dL (6.6-8.7) 07/26/24 15:40 Albumin 4.3 g/dL (3.5-5.2) 07/26/24 15:40 Globulin 2.7 g/dL (1.3-4.6) 07/26/24 15:40 Lipase 17 U/L (13-60) 07/26/24 15:40 Urine Color Yellow (Yellow) 07/26/24 16:30 Urine Appearance Cloudy (CLEAR) A 07/26/24 16:30 Urine pH 6.5 (5-7) 07/26/24 16:30 Ur Specific [place] 1.010 (1.005-1.030) 07/26/24 16:30 Urine Protein Negative (Negative) 07/26/24 16:30 Urine Glucose (UA) Negative (Normal) 07/26/24 16:30 Urine Ketones Trace (Negative) 07/26/24 16:30 Urine Blood 1+ (Negative) A 07/26/24 16:30 Urine Nitrate Positive (Negative) A 07/26/24 16:30 Urine Bilirubin Negative (Negative) 07/26/24 16:30 Urine Urobilinogen 1.0 mg/dL (Negative) 07/26/24 16:30 Ur Leukocyte Esterase 2+ (Negative) A 07/26/24 16:30 Urine RBC 6-10 /hpf (0-2) 07/26/24 16:30 Urine WBC 21-50 /hpf (0-5) H 07/26/24 16:30 Ur Squamous Epith Cells 0-5 /hpf (0-5) 07/26/24 16:30 Amorphous Sediment Not Reportable 07/26/24 16:30 Urine Bacteria 4+ /hpf (NONE) H 07/26/24 16:30 Hyaline Casts 0.40 /lpf 07/26/24 16:30 Coronavirus (PCR) Negative (Negative) 07/26/24 16:38 Influenza A (PCR) Negative (Negative) 07/26/24 16:38 Influenza Type B (PCR) Negative (Negative) 07/26/24 16:38 RSV (PCR) Negative (Negative) 07/26/24 16:38 All radiology interpretation(s) finalized by discharge Discharge Plan Discharge Patient Disposition: Admitted As Inpatient Clinical Impression: Hyponatremia, Dehydration, Urinary tract infection Condition: Stable Coding Level of Care Code ED Inspector Integrated [employer] for Chg Fwd Related Data Home Medications Medication Instructions Recorded Confirmed citalopram 20 mg tablet 20 mg PO DAILY 02/15/20 07/04/24 Lactobacillus rhamnosus GG 10 1 cap PO DAILY PRN while on 02/02/24 07/04/24 billion cell capsule (Culturelle) antibiotics Prevagen Extra Strength 1 cap PO DAILY 02/02/24 07/04/24 acetaminophen 325 mg tablet 650 mg PO QID PRN Fever Or Pain 02/02/24 07/04/24 albuterol sulfate 2.5 mg/3 mL 2.5 mg inhalation PRN PRN 02/02/24 07/04/24 (0.083 %) solution for nebulization Respiratory Distress bisacodyl 10 mg rectal suppository 10 mg OH DAILY PRN Constipation 02/02/24 07/04/24 budesonide 0.5 mg/2 mL suspension 0.5 mg inhalation Q12H 02/02/24 07/04/24 for nebulization codeine 10 mg-guaifenesin 100 mg/5 2 ml PO TID PRN Cough 02/02/24 07/04/24 mL oral liquid (Virtussin AC) hydrocodone 5 mg-acetaminophen 325 1 - 2 tab PO Q4H PRN Pain 02/02/24 07/04/24 mg tablet hyoscyamine sulfate 0.125 mg 0.125 mg PO Q4H PRN Secretions 02/02/24 07/04/24 disintegrating tablet ipratropium 0.5 mg-albuterol 3 mg 3 ml inhalation QID 02/02/24 07/04/24 (2.5 mg base)/3 mL nebulization soln lorazepam 0.5 mg tablet 0.5 mg PO Q4H PRN Anxiety 02/02/24 07/04/24 magnesium hydroxide 400 mg/5 mL 30 ml PO DAILY PRN Constipation 02/02/24 07/04/24 oral suspension (Milk of Magnesia) montelukast 10 mg tablet 10 mg PO DAILY 02/02/24 07/04/24 (Singulair) omeprazole 20 mg capsule,delayed 20 mg PO DAILY 02/02/24 07/04/24 release ondansetron HCl 4 mg tablet 4 mg PO Q6H PRN Nausea And Vomiting 02/02/24 07/04/24 oxybutynin chloride 10 mg 10 mg PO DAILY 02/02/24 07/04/24 tablet,extended release 24 hr polyvinyl alcohol 1.4 % eye drops See Rx Instructions .Route .COMPLEX 02/02/24 07/04/24 (Artificial Tears (polyvinyl alcohol)) prednisolone 1 %-moxifloxacin 0.5 1 drp ophthalmic (eye) TID 02/02/24 07/04/24 %-bromfenac 0.075 % eye drops susp prednisone 5 mg tablet 5 mg PO DAILY 02/02/24 07/04/24 sodium phosphates 19 gram-7 118 ml OH DAILY PRN Constipation 02/02/24 07/04/24 gram/118 mL enema (Fleet Enema) Allergies Allergy/AdvReac Type Severity Reaction Status Date / Time No Known Allergies Allergy Verified 07/04/24 13:07
[2024-07-26] MEDS: sodium chloride 0.9% 500 ML 999 ML IV (15:47)
[2024-07-26 16:07] LABS: Basophils # 0.1 10^3/uL (0.0-0.1); Basophils % 0.6 %; Eosinophils % 0.4 %; Hematocrit 42.7 % (36-47); Lymphocytes # 1.7 10^3/uL (0.8-4.8); Lymphocytes % 16.9 %; Mean Platelet Volume 9.9 fL (7.4-10.4); Monocytes # 0.8 10^3/uL (0.2-0.9); Monocytes % 7.8 %; Neutrophils # 7.44 10^3/uL (1.8-7.7); Neutrophils % 73.8 %; Nucleated Red Blood Cells % 0 %; Platelet Count 208 10^3/cmm (157-399); Red Cell Distribution Width 12.8 % (12.1-15.1); White Blood Count 10.09 10^3/uL (3.29-11.43)
[2024-07-26 16:28] LABS: Alanine Aminotransferase 6 U/L (0-33); Albumin Level 4.3 g/dL (3.5-5.2); Alkaline Phosphatase 71 U/L (35-105); Aspartate Amino Transferase 19 U/L (0-32); Blood Urea Nitrogen 13 mg/dL (8-23); Calcium 8.9 mg/dL (8.5-10.5); Carbon Dioxide 24 mmol/L (22-29); Chloride 87 mmol/L (98-107); Creatinine Clr Calc Pharmacy 27.6713; Globulin 2.7 g/dL (1.3-4.6); Glucose 102 mg/dL (65-115); Lipase 17 U/L (13-60); Osmolality Calculated 256 mOsm/kg (285-295); Sodium 123 mmol/L (136-145); Total Bilirubin 0.9 mg/dL (0.15-1.2)
[2024-07-26 16:32] LABS: Lactic Sepsis W/Reflex 1.7 mmol/L (0.5-2.2)
--- NOTE | 2024-07-26 16:49 | PC.NURSE ---
second order EKG ordered, this nurse asked Dr. Briceño if he wanted a repeat EKG on pt, Dr. Briceño stated no, first EKG was fine.
[2024-07-26 16:55] LABS: Bacteria Urine 4+ /hpf; Bilirubin Urine Negative (Negative); Blood Urine 1+ (Negative); Glucose Urine UA Negative (Normal); Ketones Urine Trace (Negative); Leukocyte Esterase Urine 2+ (Negative); Nitrate Urine Positive (Negative); Protein Urine Negative (Negative); Squamous Epithelial Cell Urine 0-5 /hpf (0-5); Urine Color Yellow (Yellow); WBC Urine 21-50 /hpf (0-5); pH Urine 6.5 (5-7)
[2024-07-26 17:03] LABS: Add Urine Culture? Yes; Urine Appearance Cloudy (CLEAR)
[2024-07-26 17:24] LABS: Covid PCR NEGATIVE (Negative); Influenza A NEGATIVE (Negative); Influenza B NEGATIVE (Negative); Respiratory Syncytial Virus Ce NEGATIVE (Negative)
--- NOTE | 2024-07-26 18:00 | P.HP_ITS ---
Providers/Chief Complaint 2 Primary Care Provider: Pete Hobbs DO Chief Complaint: weakness History of Present Illness Erin Xie is a 88 year old female who is a resident of [facility], history of COPD on 3 L, BMI 15.2 history of T10 fracture, pubic rami fracture, chronic back pain, who presents [facility] due to weakness, fatigue, increased confusion, poor appetite, nausea. Currently patient alert to person, not to place, to time she can follow commands, but I cannot get a significant history from her. She has no complaints according to family members at bedside, at [facility], she has had increased weakness, fatigue, increased confusion, poor appetite, nausea. She had vommiting episodes yesterday, Review of Systems 2 General: Reports: ROS unobtainable due to mental status Medications/Allergies Home Medications Medication Instructions Recorded Confirmed Last Taken Type citalopram 20 mg tablet 20 mg PO DAILY 02/15/20 07/04/24 Unknown History Lactobacillus rhamnosus GG 10 1 cap PO DAILY PRN while on 02/02/24 07/04/24 Unknown History billion cell capsule (Culturelle) antibiotics Prevagen Extra Strength 1 cap PO DAILY 02/02/24 07/04/24 Unknown History acetaminophen 325 mg tablet 650 mg PO QID PRN Fever Or Pain 02/02/24 07/04/24 Unknown History albuterol sulfate 2.5 mg/3 mL 2.5 mg inhalation PRN PRN 02/02/24 07/04/24 Unknown History (0.083 %) solution for nebulization Respiratory Distress bisacodyl 10 mg rectal suppository 10 mg SC DAILY PRN Constipation 02/02/24 07/04/24 Unknown History budesonide 0.5 mg/2 mL suspension 0.5 mg inhalation Q12H 02/02/24 07/04/24 Unknown History for nebulization codeine 10 mg-guaifenesin 100 mg/5 2 ml PO TID PRN Cough 02/02/24 07/04/24 Unknown History mL oral liquid (Virtussin AC) hydrocodone 5 mg-acetaminophen 325 1 - 2 tab PO Q4H PRN Pain 02/02/24 07/04/24 Unknown History mg tablet hyoscyamine sulfate 0.125 mg 0.125 mg PO Q4H PRN Secretions 02/02/24 07/04/24 Unknown History disintegrating tablet ipratropium 0.5 mg-albuterol 3 mg 3 ml inhalation QID 02/02/24 07/04/24 Unknown History (2.5 mg base)/3 mL nebulization soln lorazepam 0.5 mg tablet 0.5 mg PO Q4H PRN Anxiety 02/02/24 07/04/24 Unknown History magnesium hydroxide 400 mg/5 mL 30 ml PO DAILY PRN Constipation 02/02/24 07/04/24 Unknown History oral suspension (Milk of Magnesia) montelukast 10 mg tablet 10 mg PO DAILY 02/02/24 07/04/24 Unknown History (Singulair) omeprazole 20 mg capsule,delayed 20 mg PO DAILY 02/02/24 07/04/24 Unknown History release ondansetron HCl 4 mg tablet 4 mg PO Q6H PRN Nausea And Vomiting 02/02/24 07/04/24 Unknown History oxybutynin chloride 10 mg 10 mg PO DAILY 02/02/24 07/04/24 Unknown History tablet,extended release 24 hr polyvinyl alcohol 1.4 % eye drops See Rx Instructions .Route .COMPLEX 02/02/24 07/04/24 Unknown History (Artificial Tears (polyvinyl alcohol)) prednisolone 1 %-moxifloxacin 0.5 1 drp ophthalmic (eye) TID 02/02/24 07/04/24 Unknown History %-bromfenac 0.075 % eye drops susp prednisone 5 mg tablet 5 mg PO DAILY 02/02/24 07/04/24 Unknown History sodium phosphates 19 gram-7 118 ml SC DAILY PRN Constipation 02/02/24 07/04/24 Unknown History gram/118 mL enema (Fleet Enema) Allergies Allergy/AdvReac Type Severity Reaction Status Date / Time No Known Allergies Allergy Verified 07/04/24 13:07 PFSH Acute 2 PFSH: Medical History Recurrent UTI Mixed stress and urge urinary incontinence Fracture of superior pubic ramus Inferior pubic ramus fracture Chronic back pain Macular degeneration Depression DJD (degenerative joint disease) Alcohol use Discussed abstinence, increase of fall risk with alcohol Tobacco dependency Discussed abstinence Peripheral neuropathy COPD (chronic obstructive pulmonary disease) Surgical History History of lumbar fusion S/P ORIF (open reduction internal fixation) fracture Left hip History of appendectomy History of hernia surgery History of cataract surgery History of total abdominal hysterectomy and bilateral salpingo-oophorectomy Family History Father Brain tumor Social History Smoking and tobacco/nicotine status: current some day tobacco/nicotine user ( patient smokes 3-4 cig a month) cigarettes Alcohol intake: current Alcohol type: beer and hard liquor Substance/Drug Use: never Marital status: / Current occupational status: retired Vitals/I&O/Wt Last Vital Signs Temp 97.8 F 07/26/24 13:06 Pulse 94 07/26/24 16:30 Resp 15 07/26/24 16:30 BP 105/62 07/26/24 13:06 Pulse Ox 96 07/26/24 16:30 O2 Del Method Nasal Cannula 07/26/24 16:30 O2 Flow Rate 3 07/26/24 16:30 07/26/24 07/26/24 07/26/24 06:59 14:59 22:59 Intake Total 500 / 500 Balance 500 / 500 Weight last 48 hrs Weight 35.38 kg Physical Exam 2 Const: COMMON NORMALS: no acute distress EXAM LIMITATIONS: altered mental status ORIENTATION/CONSCIOUSNESS: Yes awake, Yes oriented to person and Yes confused; not oriented to place and not oriented to time Eye: COMMON NORMALS: Equal, round and reactive pupils present Neck/C-Spine: OTHER: left neck lump Resp: COMMON NORMALS: normal respiratory effort, No retractions, No use of accessory muscles and clear to auscultation bilaterally AUSCULTATION: clear to auscultation bilaterally Cardio: COMMON NORMALS: no JVD, regular rate, regular rhythm, S1 normal heart sound present and S2 normal heart sound present RATE: regular rate RHYTHM: regular rhythm HEART SOUNDS: S1 normal heart sound present and S2 normal heart sound present GI: COMMON NORMALS: Normal to inspection, nondistended, normoactive bowel sounds present, Soft to palpation and non-tender Extremity: COMMON NORMALS: no calf tenderness and no pedal edema Neuro: COMMON NORMALS: moves all extremities Data 07/26/24 15:40 07/26/24 15:40 Micro: Microbiology 07/26/24 15:40 Blood Culture - Preliminary Blood SPECIMEN COLLECTED 07/26/24 15:55 Blood Culture - Preliminary Blood SPECIMEN COLLECTED A&P Assessment and plan (1) AMS (altered mental status): (2) Hyponatremia: (3) Urinary tract infection: Plan Altered mental status, likely sec to UTI, hyponatremia -Neurochecks # Aspiration precautions UTI, continue Rocephin Hyponatremia, status post 1 L normal saline in the ER, hold off of further fluid therapy recheck serum sodium at 9 PM -Hold Celexa DNR/DNI Lovenox for DVT prophylaxis Attestations 2 Medical Necessity Statement*: Patient requires hospitalization, inpatient, greater than 2 midnights, for treatment of status, hyponatremia, UTI Diagnoses AMS (altered mental status) R41.82 Hyponatremia E87.1 Urinary tract infection N39.0
[2024-07-26] MEDS: cefTRIAXone 1,000 mg SDV 1000 MG IVP (18:36)
[2024-07-26 19:13] LABS: NT Pro B Type Natriuretic Pept 162 pg/mL (0-450)
--- NOTE | 2024-07-26 20:11 | PC.NURSE ---
report called to Jennifer, med surg at 2012.
[2024-07-26 22:02] LABS: Estmated Average Glucose 103; Hemoglobin A1C 5.2 % (4.0-6.0)
[2024-07-26 22:02] LABS: Chol HDL Ratio 4.14 mg/dL (0.0-4.40); Cholesterol 236 mg/dL (0-200); HDL Cholesterol 57 mg/dL (60-100); LDL Cholesterol Calculated 166 mg/dL (50-129); LDL HDL Ratio 2.91 RATIO (0.00-3.22); Sodium 122 mmol/L (136-145); Thyroid Stimulating Hormone 2.38 uIU/mL (0.27-4.20); Triglycerides 66 mg/dL (0-150)
[2024-07-26] MEDS: pantoprazole 40 mg SDV IVP (22:33)
[2024-07-26] MEDS: enoxaparin 30 mg/0.3 mL Syringe SUBCUT (22:33)
[2024-07-26] MEDS: LORazepam 0.5 mg Tablet PO (23:43)
[2024-07-27] VITALS (13 sets, daily range): BP systolic 96–104; BP diastolic 59–66; PULSE 66–83; RESP 14–17; TEMP 36.4–37; O2SAT 90–97
[2024-07-27 05:49] LABS: Basophils # 0.1 10^3/uL (0.0-0.1); Eosinophils # 0.2 10^3/uL (0.0-0.8); Eosinophils % 2.5 %; Hematocrit 38.6 % (36-47); Lymphocytes # 2.1 10^3/uL (0.8-4.8); Lymphocytes % 29.8 %; Mean Corpuscular HGB Conc 33.2 g/dL (30-55); Mean Corpuscular Hemoglobin 32.8 pg (27-33); Monocytes # 0.8 10^3/uL (0.2-0.9); Monocytes % 11.9 %; Neutrophils # 3.74 10^3/uL (1.8-7.7); Neutrophils % 54.5 %; Nucleated Red Blood Cells % 0 %; Platelet Count 179 10^3/cmm (157-399); Red Cell Distribution Width 12.9 % (12.1-15.1); White Blood Count 6.87 10^3/uL (3.29-11.43)
[2024-07-27 06:38] LABS: Alanine Aminotransferase < 5 U/L (0-33); Albumin Level 3.9 g/dL (3.5-5.2); Alkaline Phosphatase 59 U/L (35-105); Anion Gap 14.8 (5-19); Aspartate Amino Transferase 16 U/L (0-32); Blood Urea Nitrogen 9 mg/dL (8-23); Calcium 8.4 mg/dL (8.5-10.5); Carbon Dioxide 25 mmol/L (22-29); Chloride 93 mmol/L (98-107); Creatinine Clr Calc Pharmacy 34.0806; Globulin 2.2 g/dL (1.3-4.6); Glucose 73 mg/dL (65-115); Magnesium 1.5 mg/dL (1.7-2.3); Osmolality Calculated 265 mOsm/kg (285-295); Phosphorus 3.2 mg/dL (2.5-4.5); Potassium 3.8 mmol/L (3.5-5.1); Sodium 129 mmol/L (136-145); Total Bilirubin 0.7 mg/dL (0.15-1.2); Total Protein 6.1 g/dL (6.6-8.7)
[2024-07-27] MEDS: albuterol 2.5 mg/3 mL Neb INHALATION ×2 (08:42→19:34)
[2024-07-27] MEDS: budesonide 0.5 mg/2 mL Neb INHALATION ×2 (08:42→19:34)
--- NOTE | 2024-07-27 10:15 | PC.CHAP ---
Pastoral Care Encounter/Spiritual Assessment Type of Contact [] Declined decommissioning well site manager visit [] Patient/Family/Request visit [] Outpatient visit [] Follow-up visit [] Physician referral [] Code/Alert [x] Routine visit [] Staff referral [] Actively dying [] Patient sleeping [] Family support [] [] Out of room [] Palliative care [] [] Receiving care in room [] Pre-surgical visit [] Trauma [] Long length of stay [] ICU visit [] Other: Relational/Emotional Strength [x] Patient feels connected with others/family/visitors/staff [] Distress [] Loneliness/isolation [] Abandonment Spirituality of Patient [x] Person of Krysta [] Attends Episcopalian of their Krysta [x] Believes in Prayer [] Reads Bible or Islam materials [] There are Spiritual issues to be addressed Orthopedic Specialist Interventions [x] Prayer [x] Active listening [x] Non-anxious presence [x] Spiritual/emotional support [] Crisis/trauma care [] Spiritual counseling [] Bereavement support [] Provided bereavement packet [] Provided Bible/devotional materials [] Provided toy/stuffed animal, coloring book to patient or family member [] Provided Communion [] Anointing/[place] [] Salvation [x] Completed spiritual assessment [] Other: Impact on Illness or Injury [] Angry [] Fearful [] Anxious [] Often cries [] Exhaustion [] Unable to work [] Unable to attend latter-day [] Unable to walk/stand [] Unable to read [] Unable to drive [] Unable to eat/drink [] Unable to sleep [] Unable to be with family [] Patient intubated [] Other: Summary Time spent with patient 5 min
[2024-07-27] MEDS: predniSONE 5 mg Tablet PO (10:30)
--- NOTE | 2024-07-27 14:05 | P.PN_ITS ---
Subjective 2 Subjective: Patient was seen this morning, she is much more alert awake, follows all commands alert to person, to place, not to time she has no specific complaints, no nausea, no vomiting, continues to have episodes of confusion, requires frequent redirection and, but improved compared to yesterday Vitals/I&O/Wt Last Vital Signs Temp 97.6 F 07/27/24 12:00 Pulse 83 07/27/24 12:00 Resp 16 07/27/24 12:00 BP 96/60 07/27/24 12:00 Pulse Ox 94 07/27/24 12:00 O2 Del Method Nasal Cannula 07/27/24 12:00 O2 Flow Rate 2 07/27/24 08:47 07/26/24 07/27/24 07/27/24 22:59 06:59 14:59 Intake Total 500 / 500 0 / 500 480 / 480 Balance 500 / 500 0 / 500 480 / 480 Weight last 48 hrs Weight 40.687 kg Weight 38.192 kg Weight 35.38 kg Physical Exam 2 Const: COMMON NORMALS: no acute distress ORIENTATION/CONSCIOUSNESS: Yes awake and Yes oriented to person Resp: COMMON NORMALS: normal respiratory effort, No retractions, No use of accessory muscles and clear to auscultation bilaterally AUSCULTATION: clear to auscultation bilaterally Cardio: COMMON NORMALS: regular rate, regular rhythm, S1 normal heart sound present and S2 normal heart sound present RATE: regular rate RHYTHM: r egular rhythm HEART SOUNDS: S1 normal heart sound present and S2 normal heart sound present GI: COMMON NORMALS: Normal to inspection, nondistended, normoactive bowel sounds present and non-tender Extremity: COMMON NORMALS: no pedal edema Neuro: SENSORIUM/ORIENTATION: Yes oriented to person Data 07/27/24 05:05 07/27/24 05:05 Micro: Microbiology 07/26/24 15:40 Blood Culture - Preliminary Blood SPECIMEN COLLECTED 07/26/24 15:55 Blood Culture - Preliminary Blood SPECIMEN COLLECTED A&P Assessment and plan (1) AMS (altered mental status): (2) Hyponatremia: (3) Urinary tract infection: Plan Altered mental status, likely sec to UTI, hyponatremia -Neurochecks # Aspiration precautions UTI, continue Rocephin Hyponatremia, status post 1 L normal saline in the ER, serum sodium 129 -Hold Celexa DNR/DNI Lovenox for DVT prophylaxis Attestations 2 Medical Necessity Statement*: Patient requires hospitalization for UTI, hyponatremia Diagnoses AMS (altered mental status) R41.82 Hyponatremia E87.1 Urinary tract infection N39.0
[2024-07-27] MEDS: cefTRIAXone 1,000 mg SDV 1000 MG IVP (14:25)
[2024-07-27] MEDS: pantoprazole 40 mg SDV IVP (23:22)
[2024-07-27] MEDS: enoxaparin 30 mg/0.3 mL Syringe SUBCUT (23:22)
[2024-07-27] MEDS: HYDROcodone-acetaminophen 5-325 mg Tablet 1 TAB PO (23:52)
[2024-07-28] VITALS (9 sets, daily range): BP systolic 94–121; BP diastolic 52–73; PULSE 65–80; RESP 14–18; TEMP 36.3–36.7; O2SAT 90–96
[2024-07-28 05:15] LABS: Basophils # 0.1 10^3/uL (0.0-0.1); Basophils % 1.1 %; Eosinophils # 0.2 10^3/uL (0.0-0.8); Eosinophils % 2.8 %; Hematocrit 38.2 % (36-47); Lymphocytes # 2.1 10^3/uL (0.8-4.8); Lymphocytes % 40.2 %; Mean Corpuscular Hemoglobin 31.9 pg (27-33); Mean Corpuscular Volume 96.7 fl (85-98); Mean Platelet Volume 9.9 fL (7.4-10.4); Monocytes # 0.7 10^3/uL (0.2-0.9); Monocytes % 12.3 %; Neutrophils % 43.4 %; Nucleated Red Blood Cells % 0 %; Platelet Count 173 10^3/cmm (157-399); Red Blood Count 3.95 10^6/uL (3.85-5.65); Red Cell Distribution Width 12.7 % (12.1-15.1)
[2024-07-28 05:39] LABS: Anion Gap 14.4 (5-19); Blood Urea Nitrogen 10 mg/dL (8-23); Calcium 8.3 mg/dL (8.5-10.5); Carbon Dioxide 24 mmol/L (22-29); Chloride 94 mmol/L (98-107); Creatinine Clr Calc Pharmacy 34.2937; Glucose 83 mg/dL (65-115); Osmolality Calculated 266 mOsm/kg (285-295); Potassium 3.4 mmol/L (3.5-5.1); Sodium 129 mmol/L (136-145)
[2024-07-28] MEDS: albuterol 2.5 mg/3 mL Neb INHALATION ×2 (09:20→20:01)
[2024-07-28] MEDS: budesonide 0.5 mg/2 mL Neb INHALATION ×2 (09:20→20:01)
[2024-07-28] MEDS: predniSONE 5 mg Tablet PO (09:31)
[2024-07-28] MEDS: HYDROcodone-acetaminophen 5-325 mg Tablet 1 TAB PO ×2 (10:36→15:36)
--- NOTE | 2024-07-28 14:40 | P.PN_ITS ---
Subjective 2 Subjective: Patient was seen this morning, she is alert to person, to place not to time she follows all commands, she does complain of right hip pain, Vitals/I&O/Wt Last Vital Signs Temp 97.5 F L 07/28/24 12:00 Pulse 66 07/28/24 12:00 Resp 17 07/28/24 12:00 BP 121/52 07/28/24 12:00 Pulse Ox 94 07/28/24 12:00 O2 Del Method Nasal Cannula 07/28/24 09:20 O2 Flow Rate 0.5 07/28/24 09:20 07/27/24 07/28/24 07/28/24 22:59 06:59 14:59 Intake Total 600 / 1080 0 / 1080 240 / 240 Balance 600 / 1080 0 / 1080 240 / 240 Weight last 48 hrs Weight 41.368 kg Weight 40.687 kg Weight 38.192 kg Physical Exam 2 Const: COMMON NORMALS: no acute distress ORIENTATION/CONSCIOUSNESS: Yes awake, Yes oriented to person and Yes oriented to place; not oriented to time Resp: COMMON NORMALS: normal respiratory effort, No retractions, No use of accessory muscles and clear to auscultation bilaterally AUSCULTATION: clear to auscultation bilaterally Cardio: COMMON NORMALS: regular rate, regular rhythm, S1 normal heart sound present and S2 normal heart sound present RATE: regular rate RHYTHM: r egular rhythm HEART SOUNDS: S1 normal heart sound present and S2 normal heart sound present GI: COMMON NORMALS: Normal to inspection, nondistended, normoactive bowel sounds present and non-tender Extremity: COMMON NORMALS: no pedal edema Neuro: SENSORIUM/ORIENTATION: Yes oriented to person, Yes oriented to place and No oriented to time Psych: COMMON NORMALS: mental status grossly normal Data 07/28/24 05:02 07/28/24 05:02 Micro: Microbiology 07/26/24 16:30 Urine Culture - Final Urine,Clean Catch 07/26/24 15:40 Blood Culture - Preliminary Blood NEGATIVE TO DATE 07/26/24 15:55 Blood Culture - Preliminary Blood NEGATIVE TO DATE A&P Assessment and plan (1) AMS (altered mental status): (2) Hyponatremia: (3) Urinary tract infection: Plan Altered mental status, likely sec to UTI, hyponatremia -Neurochecks # Aspiration precautions UTI, continue Rocephin Hyponatremia, status post 1 L normal saline in the ER, serum sodium 129 -Hold Celexa DNR/DNI Lovenox for DVT prophylaxis Attestations 2 Medical Necessity Statement*: Patient requires hospitalization for altered mental status, UTI, hyponatremia, inpatient, greater than 2 midnights Diagnoses AMS (altered mental status) R41.82 Hyponatremia E87.1 Urinary tract infection N39.0
--- NOTE | 2024-07-28 15:21 | PC.SOCIAL ---
IMM Update pg 2 of IMM updated and reviewed w/ patient and daugther and son. Copy provided and copy dated, initialed and placed in chart.
[2024-07-28] MEDS: ondansetron 2 mg/ML SDV 2 mL 4 MG IVP ×2 (15:36→23:27)
[2024-07-28] MEDS: cefTRIAXone 1,000 mg SDV 1000 MG IVP (15:36)
[2024-07-28] MEDS: enoxaparin 30 mg/0.3 mL Syringe SUBCUT (21:10)
[2024-07-28] MEDS: pantoprazole 40 mg SDV IVP (21:11)
[2024-07-29] VITALS: BP 97/57; PULSE 75; RESP 14; TEMP 36.5; O2SAT 92
[2024-07-29 04:00] VITALS: BP 117/68; PULSE 75; RESP 14; TEMP 36.6; O2SAT 93
[2024-07-29 04:23] LABS: Basophils # 0.1 10^3/uL (0.0-0.1); Basophils % 1.2 %; Eosinophils # 0.1 10^3/uL (0.0-0.8); Eosinophils % 1.9 %; Hematocrit 39.6 % (36-47); Lymphocytes % 34.3 %; Mean Corpuscular HGB Conc 32.8 g/dL (30-55); Mean Corpuscular Volume 97.5 fl (85-98); Mean Platelet Volume 10.3 fL (7.4-10.4); Monocytes # 0.8 10^3/uL (0.2-0.9); Monocytes % 13.4 %; Neutrophils # 2.81 10^3/uL (1.8-7.7); Nucleated Red Blood Cells % 0 %; Platelet Count 179 10^3/cmm (157-399); Red Blood Count 4.06 10^6/uL (3.85-5.65); Red Cell Distribution Width 12.6 % (12.1-15.1); White Blood Count 5.74 10^3/uL (3.29-11.43)
[2024-07-29 04:33] LABS: Anion Gap 12.5 (5-19); Blood Urea Nitrogen 6 mg/dL (8-23); Calcium 8.5 mg/dL (8.5-10.5); Carbon Dioxide 27 mmol/L (22-29); Chloride 97 mmol/L (98-107); Creatinine Clr Calc Pharmacy 34.6625; Glucose 85 mg/dL (65-115); Osmolality Calculated 273 mOsm/kg (285-295); Potassium 3.5 mmol/L (3.5-5.1); Sodium 133 mmol/L (136-145)
[2024-07-29 07:18] LABS: SARS Covid-2 Antigen Negative (Negative)
[2024-07-29 07:40] VITALS: BP 136/82; PULSE 86; RESP 15; TEMP 36.4; O2SAT 95
[2024-07-29 08:00] VITALS: RESP 18
[2024-07-29] MEDS: HYDROcodone-acetaminophen 5-325 mg Tablet 1 TAB PO (09:24)
[2024-07-29] MEDS: predniSONE 5 mg Tablet PO (09:25)
--- NOTE | 2024-07-29 10:55 | PM.DCS ---
Discharge Providers Date of Admission: 07/26/24 18:59 Date of Discharge: July 29, 2024 Attending Provider at Admission: Darius Taylor MD Attending Provider at Discharge: Darius Taylor MD Primary Care Provider: Pete Hobbs DO Diagnoses at Discharge Discharge Diagnosis (1) AMS (altered mental status): Status: Acute (2) Hyponatremia: Status: Acute (3) Urinary tract infection: Status: Acute Reason for Visit Reason for Visit: weakness Hospital Course Hospital Course Erin Xie is a 88 year old female who is a resident of [facility], history of COPD on 3 L, BMI 18.3, history of T10 fracture, pubic rami fracture, chronic back pain, who presents [facility] due to weakness, fatigue, increased confusion, poor appetite, nausea. Currently patient alert to person, not to place, to time she can follow commands, but I cannot get a significant history from her. She has no complaints according to family members at bedside, at [facility], she has had increased weakness, fatigue, increased confusion, poor appetite, nausea. She had vommiting episodes yesterday, Patient was admitted to [facility] for altered mental status secondary to UTI, hyponatremia, likely secondary to dehydration, UTI, managed on IV antibiotics, fluid therapy Celexa held. Overall mentation improved, clinical condition improved, serum sodium improved to 133, will discharge on cefdinir, discontinue cefdinir at discharge, recheck serum sodium in 1 week. Physical Exam Const: COMMON NORMALS: no acute distress ORIENTATION/CONSCIOUSNESS: Yes awake, Yes oriented to person and Yes oriented to place; not oriented to time Resp: COMMON NORMALS: normal respiratory effort, No retractions, No use of accessory muscles and clear to auscultation bilaterally AUSCULTATION: clear to auscultation bilaterally Cardio: COMMON NORMALS: regular rate, regular rhythm, S1 normal heart sound present and S2 normal heart sound present RATE: regular rate RHYTHM: regular rhythm HEART SOUNDS: S1 normal heart sound present and S2 normal heart sound present GI: COMMON NORMALS: Normal to inspection, nondistended, normoactive bowel sounds present and non-tender Extremity: COMMON NORMALS: no pedal edema Neuro: SENSORIUM/ORIENTATION: Yes oriented to person, Yes oriented to place and No oriented to time Psych: COMMON NORMALS: mental status grossly normal Discharge Data Studies Completed and Pending Completed Studies During Hospitalization Category Date Time Status XR chest 1V portable [id number] Stat Exams 07/26/24 15:23 Completed Pending at discharge Category Date Time Status Basic Metabolic Panel AM LABS Lab 07/30/24 04:00 Ordered Blood Culture Stat Lab 07/26/24 15:40 Results Complete Blood Count w/Auto AM LABS Lab 07/30/24 04:00 Ordered Radiology Impressions Chest X-Ray 07/26/24 15:23 IMPRESSION: No acute chest abnormality as above. Laboratory Results WBC 5.74 10^3/uL (3.29-11.43) 07/29/24 03:55 RBC 4.06 10^6/uL (3.85-5.65) 07/29/24 03:55 Hgb 13.00 g/dL (11.27-16.99) 07/29/24 03:55 Hct 39.6 % (36-47) 07/29/24 03:55 MCV 97.5 fl (85-98) 07/29/24 03:55 MCH 32.0 pg (27-33) 07/29/24 03:55 MCHC 32.8 g/dL (30-55) 07/29/24 03:55 RDW 12.6 % (12.1-15.1) 07/29/24 03:55 Plt Count 179 10^3/cmm (157-399) 07/29/24 03:55 MPV 10.3 fL (7.4-10.4) 07/29/24 03:55 Neut % (Auto) 49.0 % 07/29/24 03:55 Lymph % (Auto) 34.3 % 07/29/24 03:55 [place] % (Auto) 13.4 % 07/29/24 03:55 Eos % (Auto) 1.9 % 07/29/24 03:55 Baso % (Auto) 1.2 % 07/29/24 03:55 Neut # (Auto) 2.81 10^3/uL (1.8-7.7) 07/29/24 03:55 Lymph # (Auto) 2.0 10^3/uL (0.8-4.8) 07/29/24 03:55 [place] # (Auto) 0.8 10^3/uL (0.2-0.9) 07/29/24 03:55 Eos # (Auto) 0.1 10^3/uL (0.0-0.8) 07/29/24 03:55 Baso # (Auto) 0.1 10^3/uL (0.0-0.1) 07/29/24 03:55 Nucleated RBC % (auto) 0 % 07/29/24 03:55 Nucleated RBCs # 0.0 /100WBC 07/29/24 03:55 Sodium 133 mmol/L (136-145) L 07/29/24 03:55 Potassium 3.5 mmol/L (3.5-5.1) 07/29/24 03:55 Chloride 97 mmol/L (98-107) L 07/29/24 03:55 Carbon Dioxide 27 mmol/L (22-29) 07/29/24 03:55 Anion Gap 12.5 (5-19) 07/29/24 03:55 BUN 6 mg/dL (8-23) L 07/29/24 03:55 Creatinine 0.6 mg/dL (0.5-0.9) 07/29/24 03:55 GFR Calculation Not Reportable 07/29/24 03:55 Glucose 85 mg/dL (65-115) 07/29/24 03:55 Estimat Average Glucose 103 07/26/24 15:40 Hemoglobin A1c 5.2 % (4.0-6.0) 07/26/24 15:40 Calculated Osmolality 273 mOsm/kg (285-295) L 07/29/24 03:55 Lactic Acid 1.7 mmol/L (0.5-2.2) 07/26/24 15:40 Calcium 8.5 mg/dL (8.5-10.5) 07/29/24 03:55 Phosphorus 3.2 mg/dL (2.5-4.5) 07/27/24 05:05 Magnesium 1.5 mg/dL (1.7-2.3) L 07/27/24 05:05 Total Bilirubin 0.7 mg/dL (0.15-1.2) 07/27/24 05:05 AST 16 U/L (0-32) 07/27/24 05:05 ALT < 5 U/L (0-33) 07/27/24 05:05 Alkaline Phosphatase 59 U/L (35-105) 07/27/24 05:05 C-Reactive Protein 3.0 mg/L (0.0-4.9) 07/26/24 15:40 NT-Pro-B Natriuret Pep 162 pg/mL (0-450) 07/26/24 15:40 Total Protein 6.1 g/dL (6.6-8.7) L 07/27/24 05:05 Albumin 3.9 g/dL (3.5-5.2) 07/27/24 05:05 Globulin 2.2 g/dL (1.3-4.6) 07/27/24 05:05 Triglycerides 66 mg/dL (0-150) 07/26/24 21:14 Cholesterol 236 mg/dL (0-200) H 07/26/24 21:14 LDL Cholesterol, Calc 166 mg/dL (50-129) H 07/26/24 21:14 HDL Cholesterol 57 mg/dL (60-100) L 07/26/24 21:14 LDL/HDL Ratio 2.91 RATIO (0.00-3.22) 07/26/24 21:14 Cholesterol/HDL Ratio 4.14 mg/dL (0.0-4.40) 07/26/24 21:14 Lipase 17 U/L (13-60) 07/26/24 15:40 TSH 2.38 uIU/mL (0.27-4.20) 07/26/24 21:14 Urine Color Yellow (Yellow) 07/26/24 16:30 Urine Appearance Cloudy (CLEAR) A 07/26/24 16:30 Urine pH 6.5 (5-7) 07/26/24 16:30 Ur Specific [place] 1.010 (1.005-1.030) 07/26/24 16:30 Urine Protein Negative (Negative) 07/26/24 16:30 Urine Glucose (UA) Negative (Normal) 07/26/24 16:30 Urine Ketones Trace (Negative) 07/26/24 16:30 Urine Blood 1+ (Negative) A 07/26/24 16:30 Urine Nitrate Positive (Negative) A 07/26/24 16:30 Urine Bilirubin Negative (Negative) 07/26/24 16:30 Urine Urobilinogen 1.0 mg/dL (Negative) 07/26/24 16:30 Ur Leukocyte Esterase 2+ (Negative) A 07/26/24 16:30 Urine RBC 6-10 /hpf (0-2) 07/26/24 16:30 Urine WBC 21-50 /hpf (0-5) H 07/26/24 16:30 Ur Squamous Epith Cells 0-5 /hpf (0-5) 07/26/24 16:30 Amorphous Sediment Not Reportable 07/26/24 16:30 Urine Bacteria 4+ /hpf (NONE) H 07/26/24 16:30 Hyaline Casts 0.40 /lpf 07/26/24 16:30 Coronavirus (PCR) Negative (Negative) 07/26/24 16:38 Influenza A (PCR) Negative (Negative) 07/26/24 16:38 Influenza Type B (PCR) Negative (Negative) 07/26/24 16:38 RSV (PCR) Negative (Negative) 07/26/24 16:38 SARS-CoV-2 Ag (Rapid) Negative (Negative) 07/29/24 05:59 Vitals Last Vital Signs Temp 97.6 F 07/29/24 07:40 Pulse 86 07/29/24 07:40 Resp 18 07/29/24 08:00 BP 136/82 07/29/24 07:40 Pulse Ox 95 07/29/24 07:40 O2 Del Method Nasal Cannula 07/29/24 08:00 O2 Flow Rate 0.5 07/29/24 08:00 Discharge Plan Discharge Patient Disposition: Xfer SNF Condition: Stable Prescriptions: New cefdinir 300 mg capsule 300 mg PO BID 5 Days Qty: 10 0RF Continued ipratropium-albuterol 0.5 mg-3 mg(2.5 mg base)/3 mL solution for nebulization 3 ml INHALATION QID oxybutynin chloride 10 mg tablet extended release 24hr 10 mg PO DAILY hydrocodone-acetaminophen 5-325 mg Tablet 1 - 2 tab PO Q4H PRN (Reason: Pain) polyvinyl alcohol [Artificial Tears (polyvin alc)] 1.4 % Drops See Rx Instructions .ROUTE .COMPLEX PRN (Reason: eye dryness ) Rx Instructions: as directed both eyes as needed for eye dryness ondansetron HCl 4 mg Tablet 4 mg PO Q6H PRN (Reason: Nausea And Vomiting) prednisone 5 mg Tablet 5 mg PO DAILY magnesium hydroxide [Milk of Magnesia] 400 mg/5 mL Suspension 30 ml PO DAILY PRN (Reason: Constipation) hyoscyamine sulfate 0.125 mg Tablet,Disintegrating 0.125 mg PO Q4H PRN (Reason: Secretions) bisacodyl 10 mg Suppository 10 mg MS DAILY PRN (Reason: Constipation) Fleet Enema 19-7 gram/118 mL Enema 118 ml MS DAILY PRN (Reason: Constipation) omeprazole 20 mg Capsule,Delayed Release(Dr/Ec) 20 mg PO DAILY montelukast [Singulair] 10 mg Tablet 10 mg PO DAILY codeine-guaifenesin [Virtussin AC] 10-100 mg/5 mL Liquid 2 ml PO TID PRN (Reason: Cough) Culturelle 10 billion cell Capsule 1 cap PO DAILY PRN (Reason: while on antibiotics) Prevagen Extra Strength 1 cap PO DAILY acetaminophen 325 mg tablet 650 mg PO QID PRN (Reason: Fever Or Pain) prednisolone acetate 1 % drops,suspension 1 drp ophthalmic (eye) TID Systane (propylene glycol) 0.4-0.3 % Drops 1 drp OPHTHALMIC (EYE) BID PRN (Reason: dry eyes ) Systane Ultra (PF) 0.4-0.3 % Drops 1 drp OPHTHALMIC (EYE) QID Discontinued citalopram 20 mg tablet 20 mg PO DAILY Discharge Orders: Discharge Order (Routine); Ordered 07/29/24 Ordered By: Darius Taylor Referrals: [facility] [Outside] Pete Hobbs DO [Primary Care Provider] - Discharge Diet: As Directed Discharge Activity: Resume usual activity Patient Instructions: Opioid Safety Discharge Attestations Time Spent in Discharge Care*: greater than 30 min Quality Metrics Clinical Quality Measures [ No reported AMI, CVA or VTE this stay] Coding Level of Care Code 03314 Total time (in minutes) for Discharge: 45 Diagnoses AMS (altered mental status) R41.82 Hyponatremia E87.1 Urinary tract infection N39.0
[2024-07-29 12:04] VITALS: BP 127/68; PULSE 93; RESP 17; TEMP 36.7; O2SAT 94
--- NOTE | 2024-07-29 12:57 | PC.NURSE ---
Called report to [facility]. Nicolas and this nurse assisted pt and family down to car and asked if O2 available. Dtr said had O2 tank in car. When pt assisted into vehicle this nurse asked where O2 tank was and dtr stated pt will be fine. Dtr did not want pt placed on O2. Pt not in distress at that time.
[2024-07-29 13:05] VITALS: BP 127/68; PULSE 93; RESP 17; TEMP 36.7; O2SAT 94
== END 2024-07-29 13:00 | disposition skilled nursing facility (03) | DRG 690 ==
LOC: ER 17:14 → ER IP 19:00 → MEDSURG 20:16
PROVIDERS: Admitting Provider Family Medicine; Emergency Provider Emergency Medicine; PCP Internal Medicine; Visit Provider Family Medicine
DX: N39.0 Urinary tract infection, site not specified (principal); E87.1 Hypo-osmolality and hyponatremia; Z11.52 Encounter for screening for COVID-19; J43.9 Emphysema, unspecified; Z99.81 Dependence on supplemental oxygen; G89.29 Other chronic pain; M54.9 Dorsalgia, unspecified; Z87.440 Personal history of urinary (tract) infections; N39.46 Mixed incontinence; H35.30 Unspecified macular degeneration; F32.A Depression, unspecified; F10.90 Alcohol use, unspecified, uncomplicated; F17.210 Nicotine dependence, cigarettes, uncomplicated; G62.9 Polyneuropathy, unspecified; E86.0 Dehydration; Z66 Do not resuscitate; R41.82 Altered mental status, unspecified; Z98.1 Arthrodesis status
CPT/HCPCS: 0241U; 36415; 71045; 80048; 80053; 80061; 81001; 83036; 83605; 83690; 83735; 83880; 84100; 84295; 84443; 85025; 86140; 87040; 87086; 87426; 93005; 94640; 94664; 96361; 96372; 96374; 97116; 97161; 97165; 97530; 99285; J0696; J1650; J2405; J2470; J7040; J7512; J7613; J7626

== ENCOUNTER 2024-09-04 18:04 | Emergency (ER) | payer MEDICARE, MEDICAID, SELFPAY ==
[2024-09-04 18:24] VITALS: BP 107/67; PULSE 74; RESP 18; TEMP 36.4; O2SAT 98; BMI 17.5
[2024-09-04 18:27] VITALS: BP 108/66; PULSE 77; RESP 18; O2SAT 98
--- NOTE | 2024-09-04 18:33 | XRR_ITS ---
PROCEDURE INFORMATION: Exam: XR Chest Exam date and time: 09/04/2024 7:07 PM Age: 88 years old Clinical indication: Shortness of breath TECHNIQUE: Imaging protocol: Radiologic exam of the chest. Views: 1 view. COMPARISON: CR XR chest 1V portable [id number] 07/26/2024 3:32 PM FINDINGS: Lungs: Calcified granulomatous disease. No lobar consolidation. Nonspecific prominence of the pulmonary interstitium. Hyperinflated lungs. Pleural spaces: No pleural effusion or pneumothorax. Heart/Mediastinum: Unremarkable. No cardiomegaly. Bones/joints: Multiple old right-sided rib fractures. Levoscoliosis of the spine. XR/XR chest 1V portable [id number] IMPRESSION: As above.
--- NOTE | 2024-09-04 18:33 | XRR_ITS ---
PROCEDURE INFORMATION: Exam: XR Lumbosacral Spine Exam date and time: 09/04/2024 7:09 PM Age: 88 years old Clinical indication: Low back pain; Prior surgery; Surgery date: 6+ months; Surgery type: Lumbar TECHNIQUE: Imaging protocol: Radiologic exam of the lumbosacral spine. Views: 2 or 3 views. COMPARISON: CR XR pelvis 1-2V* [id number] 04/25/2020 9:51 AM FINDINGS: Bones/joints: Chronic fractures of the left superior and inferior pubic rami. Degenerative changes of the right hip joint. Intramedullary nail within the left proximal femur. Multilevel degenerative changes and chronic appearing height loss at multiple levels involving the lower thoracic and upper lumbar spine. Postsurgical changes of lateral fusion of the upper lumbar spine. There is some anterolisthesis of L5 on S1. Soft tissues: Unremarkable. Vasculature: Atherosclerosis. XR/XR lumbar spine 2-3V* [id number] IMPRESSION: As above.
[2024-09-04 19:07] LABS: Basophils % 0.4 %; Eosinophils # 0.1 10^3/uL (0.0-0.8); Eosinophils % 0.9 %; Hematocrit 34.6 % (36-47); Lymphocytes # 1.8 10^3/uL (0.8-4.8); Lymphocytes % 23.1 %; Mean Corpuscular HGB Conc 33.2 g/dL (30-55); Mean Corpuscular Hemoglobin 32.3 pg (27-33); Mean Corpuscular Volume 97.2 fl (85-98); Mean Platelet Volume 9.6 fL (7.4-10.4); Monocytes # 0.6 10^3/uL (0.2-0.9); Monocytes % 8.1 %; Neutrophils # 5.34 10^3/uL (1.8-7.7); Neutrophils % 67.2 %; Nucleated Red Blood Cells % 0 %; Platelet Count 170 10^3/cmm (157-399); Red Blood Count 3.56 10^6/uL (3.85-5.65); Red Cell Distribution Width 12.9 % (12.1-15.1); White Blood Count 7.93 10^3/uL (3.29-11.43)
[2024-09-04 19:27] LABS: Alanine Aminotransferase 6 U/L (0-33); Albumin Level 3.8 g/dL (3.5-5.2); Alkaline Phosphatase 56 U/L (35-105); Anion Gap 15.3 (5-19); Aspartate Amino Transferase 15 U/L (0-32); Blood Urea Nitrogen 4 mg/dL (8-23); Calcium 9.2 mg/dL (8.5-10.5); Carbon Dioxide 25 mmol/L (22-29); Chloride 92 mmol/L (98-107); Creatinine Clr Calc Pharmacy 37.1334; Globulin 2.2 g/dL (1.3-4.6); Glucose 125 mg/dL (65-115); Osmolality Calculated 266 mOsm/kg (285-295); Potassium 3.3 mmol/L (3.5-5.1); Sodium 129 mmol/L (136-145); Total Bilirubin 0.4 mg/dL (0.15-1.2)
[2024-09-04 20:27] VITALS: BP 107/68; PULSE 71; RESP 18; O2SAT 95
--- NOTE | 2024-09-04 20:54 | ED_ITS ---
HPI - Back Pain/Injury 2 General: Chief Complaint: Back Pain/Injury Stated Complaint: back pain Time Seen by Provider: 09/04/24 18:30 History of Present Illness: 88-year-old female who presents to the e mergency room with low back pain. She has had chronic issues with this and has had multiple surgeries. Apparently she was screaming out in pain today. According to family recently she was abusing her pain medications and so they had all been taken away and currently she is only getting Tylenol. No saddle numbness, no urinary retention or incontinence, no focal motor deficit, no sensory deficit. no recent fever. no cough. no shortness of breath. no chest pain. no abdominal pain. no nausea or vomiting. no dysuria. no altered mental status. no edema. Related Data Home Medications Medication Instructions Recorded Confirmed Lactobacillus rhamnosus GG 10 1 cap PO DAILY PRN while on 02/02/24 07/27/24 billion cell capsule (Culturelle) antibiotics Prevagen Extra Strength 1 cap PO DAILY 02/02/24 07/27/24 acetaminophen 325 mg tablet 650 mg PO QID PRN Fever Or Pain 02/02/24 07/27/24 bisacodyl 10 mg rectal suppository 10 mg AL DAILY PRN Constipation 02/02/24 07/27/24 codeine 10 mg-guaifenesin 100 mg/5 2 ml PO TID PRN Cough 02/02/24 07/27/24 mL oral liquid (Virtussin AC) hydrocodone 5 mg-acetaminophen 325 1 - 2 tab PO Q4H PRN Pain 02/02/24 07/27/24 mg tablet hyoscyamine sulfate 0.125 mg 0.125 mg PO Q4H PRN Secretions 02/02/24 07/27/24 disintegrating tablet ipratropium 0.5 mg-albuterol 3 mg 3 ml inhalation QID 02/02/24 07/27/24 (2.5 mg base)/3 mL nebulization soln magnesium hydroxide 400 mg/5 mL 30 ml PO DAILY PRN Constipation 02/02/24 07/27/24 oral suspension (Milk of Magnesia) montelukast 10 mg tablet 10 mg PO DAILY 02/02/24 07/27/24 (Singulair) omeprazole 20 mg capsule,delayed 20 mg PO DAILY 02/02/24 07/27/24 release ondansetron HCl 4 mg tablet 4 mg PO Q6H PRN Nausea And Vomiting 02/02/24 07/27/24 oxybutynin chloride 10 mg 10 mg PO DAILY 02/02/24 07/27/24 tablet,extended release 24 hr polyvinyl alcohol 1.4 % eye drops See Rx Instructions .Route 02/02/24 07/27/24 (Artificial Tears (polyvinyl .COMPLEX PRN eye dryness alcohol)) prednisone 5 mg tablet 5 mg PO DAILY 02/02/24 07/27/24 sodium phosphates 19 gram-7 118 ml AL DAILY PRN Constipation 02/02/24 07/27/24 gram/118 mL enema (Fleet Enema) peg 400 0.4 %-propylene glycol 1 drp ophthalmic (eye) QID 07/27/24 07/27/24 (PF) 0.3 % eye drops (Systane Ultra (PF)) peg 400-propylene glycol 0.4 %-0.3 1 drp ophthalmic (eye) BID PRN dry 07/27/24 07/27/24 % eye drops (Systane (propylene eyes glycol)) prednisolone acetate 1 % eye 1 drp ophthalmic (eye) TID 07/27/24 07/27/24 drops,suspension Previous Rx's Medication Instructions Recorded tramadol 50 mg tablet 50 mg PO Q8H PRN pain #10 tabs 09/04/24 Allergies Allergy/AdvReac Type Severity Reaction Status Date / Time No Known Allergies Allergy Verified 09/04/24 18:27 Review of Systems 2 Narrative: Constitutional symptoms: Negative except as documented in HPI. Skin symptoms: Negative except as documented in HPI. Eye symptoms: Negative except as documented in HPI. ENMT symptoms: Negative except as documented in HPI. Respiratory symptoms: Negative except as documented in HPI. Cardiovascular symptoms: Negative except as documented in HPI. Gastrointestinal symptoms: Negative except as documented in HPI. Genitourinary symptoms: Negative except as documented in HPI. Musculoskeletal symptoms: Negative except as documented in HPI. Neurologic symptoms: Negative except as documented in HPI. Psychiatric symptoms: Negative except as documented in HPI. Endocrine symptoms: Negative except as documented in HPI. PFSH ED 2 PFSH: Medical History Recurrent UTI Mixed stress and urge urinary incontinence Fracture of superior pubic ramus Inferior pubic ramus fracture Chronic back pain Macular degeneration Depression DJD (degenerative joint disease) Alcohol use Discussed abstinence, increase of fall risk with alcohol Tobacco dependency Discussed abstinence Peripheral neuropathy COPD (chronic obstructive pulmonary disease) Surgical History History of lumbar fusion S/P ORIF (open reduction internal fixation) fracture Left hip History of appendectomy History of hernia surgery History of cataract surgery History of total abdominal hysterectomy and bilateral salpingo-oophorectomy Family History Father Brain tumor Social History Smoking and tobacco/nicotine status: current some day tobacco/nicotine user ( patient smokes 3-4 cig a month) cigarettes Alcohol intake: current Alcohol type: beer and hard liquor Substance/Drug Use: never Marital status: / Current occupational status: retired Physical Exam 2 Narrative: EXAM NARRATIVE: General: Alert, no acute distress. Head: Normocephalic Neck: Trachea midline Eye: Extraocular movements are intact. Ears, nose, mouth and throat: Oral mucosa moist Respiratory: Respirations are non-labored Musculoskeletal: Normal ROM Back: no step off, no focal tenderness, some paraspinal muscle tenderness Neurological: Alert and oriented to person, place, time, and situation, No focal neurological deficit observed. Psychiatric: Cooperative, appropriate mood & affect. Course 2 Vital Signs: Vital signs: Vital Signs Temperature 97.6 F 09/04/24 18:24 Pulse Rate 71 09/04/24 20:27 Respiratory Rate 18 09/04/24 20:27 Blood Pressure 107/68 09/04/24 20:27 Pulse Oximetry 95 09/04/24 20:27 Oxygen Delivery Me thod Nasal Cannula 09/04/24 18:27 Oxygen Flow Rate 3 09/04/24 18:27 MDM - Back Pain/Injury Medical Decision Making X-ray of the lumbar spine: Extensive degenerative changes. No obvious acute findings. This was reviewed and interpreted by myself the emergency room physician. I also reviewed the radiology report. Lab review: I reviewed and interpreted labs personally. Sodium is little low at 129 but this is her baseline. No leukocytosis or anemia. No renal failure. Reexamination: Patient has been pain-free since she arrived here. Workup is negative. I will give her a low-dose of tramadol for a few days and she can follow with her primary care provider. Discussed this with family. Assessment and plan: Low back pain - Discharged home - Discussed plan with patient. Answered any questions. - Evaluation and treatment of this problem were appropriate in the emergency setting. Labs 09/04/24 18:53 09/04/24 18:53 Radiology Impressions Chest X-Ray 09/04/24 18:33 IMPRESSION: As above. Lumbar Spine X-Ray 09/04/24 18:33 IMPRESSION: As above. Laboratory Results WBC 7.93 10^3/uL (3.29-11.43) 09/04/24 18:53 RBC 3.56 10^6/uL (3.85-5.65) L 09/04/24 18:53 Hgb 11.50 g/dL (11.27-16.99) 09/04/24 18:53 Hct 34.6 % (36-47) L 09/04/24 18:53 MCV 97.2 fl (85-98) 09/04/24 18:53 MCH 32.3 pg (27-33) 09/04/24 18:53 MCHC 33.2 g/dL (30-55) 09/04/24 18:53 RDW 12.9 % (12.1-15.1) 09/04/24 18:53 Plt Count 170 10^3/cmm (157-399) 09/04/24 18:53 MPV 9.6 fL (7.4-10.4) 09/04/24 18:53 Neut % (Auto) 67.2 % 09/04/24 18:53 Lymph % (Auto) 23.1 % 09/04/24 18:53 Union % (Auto) 8.1 % 09/04/24 18:53 Eos % (Auto) 0.9 % 09/04/24 18:53 Baso % (Auto) 0.4 % 09/04/24 18:53 Neut # (Auto) 5.34 10^3/uL (1.8-7.7) 09/04/24 18:53 Lymph # (Auto) 1.8 10^3/uL (0.8-4.8) 09/04/24 18:53 Union # (Auto) 0.6 10^3/uL (0.2-0.9) 09/04/24 18:53 Eos # (Auto) 0.1 10^3/uL (0.0-0.8) 09/04/24 18:53 Baso # (Auto) 0.0 10^3/uL (0.0-0.1) 09/04/24 18:53 Nucleated RBC % (auto) 0 % 09/04/24 18:53 Nucleated RBCs # 0.0 /100WBC 09/04/24 18:53 Sodium 129 mmol/L (136-145) L 09/04/24 18:53 Potassium 3.3 mmol/L (3.5-5.1) L 09/04/24 18:53 Chloride 92 mmol/L (98-107) L 09/04/24 18:53 Carbon Dioxide 25 mmol/L (22-29) 09/04/24 18:53 Anion Gap 15.3 (5-19) 09/04/24 18:53 BUN 4 mg/dL (8-23) L 09/04/24 18:53 Creatinine 0.7 mg/dL (0.5-0.9) 09/04/24 18:53 GFR Calculation Not Reportable 09/04/24 18:53 Glucose 125 mg/dL (65-115) H 09/04/24 18:53 Calculated Osmolality 266 mOsm/kg (285-295) L 09/04/24 18:53 Calcium 9.2 mg/dL (8.5-10.5) 09/04/24 18:53 Total Bilirubin 0.4 mg/dL (0.15-1.2) 09/04/24 18:53 AST 15 U/L (0-32) 09/04/24 18:53 ALT 6 U/L (0-33) 09/04/24 18:53 Alkaline Phosphatase 56 U/L (35-105) 09/04/24 18:53 C-Reactive Protein 3.0 mg/L (0.0-4.9) 09/04/24 18:53 Total Protein 6.0 g/dL (6.6-8.7) L 09/04/24 18:53 Albumin 3.8 g/dL (3.5-5.2) 09/04/24 18:53 Globulin 2.2 g/dL (1.3-4.6) 09/04/24 18:53 All radiology interpretation(s) finalized by discharge Discharge Plan Discharge Patient Disposition: Home Clinical Impression: Chronic low back pain Condition: Stable Prescriptions: New tramadol 50 mg tablet 50 mg PO Q8H PRN (Reason: pain) Qty: 10 0RF Rx Instructions: 1/2 to 1 tab every 8 hours prn No Action ipratropium-albuterol 0.5 mg-3 mg(2.5 mg base)/3 mL solution for nebulization 3 ml INHALATION QID oxybutynin chloride 10 mg tablet extended release 24hr 10 mg PO DAILY hydrocodone-acetaminophen 5-325 mg Tablet 1 - 2 tab PO Q4H PRN (Reason: Pain) polyvinyl alcohol [Artificial Tears (polyvin alc)] 1.4 % Drops See Rx Instructions .ROUTE .COMPLEX PRN (Reason: eye dryness ) Rx Instructions: as directed both eyes as needed for eye dryness ondansetron HCl 4 mg Tablet 4 mg PO Q6H PRN (Reason: Nausea And Vomiting) prednisone 5 mg Tablet 5 mg PO DAILY magnesium hydroxide [Milk of Magnesia] 400 mg/5 mL Suspension 30 ml PO DAILY PRN (Reason: Constipation) hyoscyamine sulfate 0.125 mg Tablet,Disintegrating 0.125 mg PO Q4H PRN (Reason: Secretions) bisacodyl 10 mg Suppository 10 mg AL DAILY PRN (Reason: Constipation) Fleet Enema 19-7 gram/118 mL Enema 118 ml AL DAILY PRN (Reason: Constipation) omeprazole 20 mg Capsule,Delayed Release(Dr/Ec) 20 mg PO DAILY montelukast [Singulair] 10 mg Tablet 10 mg PO DAILY codeine-guaifenesin [Virtussin AC] 10-100 mg/5 mL Liquid 2 ml PO TID PRN (Reason: Cough) Culturelle 10 billion cell Capsule 1 cap PO DAILY PRN (Reason: while on antibiotics) Prevagen Extra Strength 1 cap PO DAILY acetaminophen 325 mg tablet 650 mg PO QID PRN (Reason: Fever Or Pain) prednisolone acetate 1 % drops,suspension 1 drp ophthalmic (eye) TID Systane (propylene glycol) 0.4-0.3 % Drops 1 drp OPHTHALMIC (EYE) BID PRN (Reason: dry eyes ) Systane Ultra (PF) 0.4-0.3 % Drops 1 drp OPHTHALMIC (EYE) QID Discharge Orders: Discharge ED (Routine); Ordered 09/04/24 Ordered By: Sally Briceño Referrals: Pete Hobbs, [Primary Care Provider] - Discharge Activity: Increase activity as tolerated Patient Instructions: Opioid Safety, Pain Management Activity Restrictions/Additional Instructions: Thank you for choosing [facility] for your healthcare needs today. Please realize this is an emergency room and that we are providing you with a medical screening exam and this may not be complete and all inclusive of all the testing and or work up that you may need to determine your ailment or severity of your illness. You have been screened and evaluated and felt safe for discharge. Health conditions do change or evolve sometimes and as such it is important that you follow up with your Primary Doctor to be re checked, 3-5 days is a general good time frame for follow up. You are always welcome to return to the ED for re assessment if your symptoms are worsening or you have new concerns Coding Level of Care Code ED Burrer Operator for Lopez Baxter
--- NOTE | 2024-09-04 21:05 | PC.NURSE ---
Attempted straight catheter without success. Dr. Briceño notified and verbalized understanding. Dr. Briceño verbally cancelled urine order and will discuss options with family.
[2024-09-04 21:13] LABS: Covid PCR NEGATIVE (Negative); Influenza A NEGATIVE (Negative); Influenza B NEGATIVE (Negative); Respiratory Syncytial Virus Ce NEGATIVE (Negative)
[2024-09-04 21:29] VITALS: BP 119/71; PULSE 76; RESP 18; O2SAT 94
[2024-09-04] MEDS: TRAMadol 50 mg Tablet PO (21:33)
[2024-09-04 21:47] VITALS: BP 113/70; PULSE 79; RESP 18; O2SAT 93
== END 2024-09-04 21:49 | disposition home or self-care (01) ==
PROVIDERS: Emergency Provider Emergency Medicine; PCP Internal Medicine
DX: M54.50 Low back pain, unspecified (principal); F17.210 Nicotine dependence, cigarettes, uncomplicated; J44.9 Chronic obstructive pulmonary disease, unspecified
CPT/HCPCS: 0241U; 71045; 72100; 80053; 85025; 86140; 99284

== ENCOUNTER → 2024-09-27 12:54 | Outpatient (BNVA) | payer MEDICARE, MEDICAID, SELFPAY | PROVIDERS: PCP Internal Medicine; Visit Provider Podiatrist Foot & Ankle Surgery | DX: I73.9 Peripheral vascular disease, unspecified (principal); L60.3 Nail dystrophy | CPT/HCPCS: 11721 ==

== ENCOUNTER 2024-10-01 14:21 | Emergency (ER) | payer MEDICARE, MEDICAID, SELFPAY ==
[2024-10-01 14:22] VITALS: BP 98/46; PULSE 60; RESP 16; TEMP 36.4; O2SAT 94
--- NOTE | 2024-10-01 14:32 | CTR_ITS ---
PROCEDURE INFORMATION: Exam: CT Head Without Contrast Exam date and time: 10/01/2024 2:45 PM Age: 88 years old Clinical indication: Injury or trauma; Fall; Blunt trauma (contusions or hematomas) TECHNIQUE: Imaging protocol: Computed tomography of the head without contrast. Radiation optimization: All CT scans at this facility use at least one of these dose optimization techniques: automated exposure control; mA and/or kV adjustment per patient size (includes targeted exams where dose is matched to clinical indication); or iterative reconstruction. COMPARISON: CT head wo con* [id number] 02/15/2020 2:24 PM RADIATION DOSE METRICS: Total DLP (mGy-cm): 963.3 FINDINGS: Brain: There is prominent chronic periventricular white matter ischemic change. There is no evidence of mass effect, hemorrhage or infarct. Prominent diffuse cerebral atrophy is noted. Cerebral ventricles: No ventriculomegaly. No midline shift. Paranasal sinuses: Visualized sinuses are unremarkable. No fluid levels. Mastoid air cells: Visualized mastoid air cells are well aerated. Bones: Unremarkable. No acute fracture. Soft tissues: Unremarkable. CT/CT head wo con* [id number] IMPRESSION: 1. No acute findings. 2. Cerebral atrophy is noted along with chronic white matter ischemic changes.
--- NOTE | 2024-10-01 14:32 | CTR_ITS ---
PROCEDURE INFORMATION: Exam: CT Cervical Spine Without Contrast Exam date and time: 10/01/2024 2:45 PM Age: 88 years old Clinical indication: Injury or trauma; Fall TECHNIQUE: Imaging protocol: Computed tomography of the cervical spine without contrast. Radiation optimization: All CT scans at this facility use at least one of these dose optimization techniques: automated exposure control; mA and/or kV adjustment per patient size (includes targeted exams where dose is matched to clinical indication); or iterative reconstruction. COMPARISON: CT cervical spin wo con* [id number] 02/15/2020 2:28 PM RADIATION DOSE METRICS: Total DLP (mGy-cm): 966.7 FINDINGS: Bones: There is an expansile lucent lesion involving the C2 vertebral body at the base of the odontoid process. This is a chronic finding and has not changed over the past 4 years.There is multilevel degenerative disc disease along with vertebral body spurring and facet arthropathy. No fracture or subluxation. There is a chronic anterior spondylolisthesis at the C3-C4 level. Lungs: Lung apices are normal. Soft tissues: Unremarkable. CT/CT cervical spin wo con* [id number] IMPRESSION: 1. No acute findings. 2. Stable lucent lesion involving the C2 vertebral body 3. Multilevel arthritic changes
--- NOTE | 2024-10-01 14:32 | CTR_ITS ---
PROCEDURE INFORMATION: Exam: CT Maxillofacial Without Contrast Exam date and time: 10/01/2024 2:45 PM Age: 88 years old Clinical indication: Injury or trauma; Fall TECHNIQUE: Imaging protocol: Computed tomography of the face without contrast. Radiation optimization: All CT scans at this facility use at least one of these dose optimization techniques: automated exposure control; mA and/or kV adjustment per patient size (includes targeted exams where dose is matched to clinical indication); or iterative reconstruction. COMPARISON: CT head wo con* [id number] 10/01/2024 2:45 PM RADIATION DOSE METRICS: Total DLP (mGy-cm): 565.7 FINDINGS: Paranasal sinuses: No air-fluid levels. Orbital cavities: Orbits are normal. Globes are unremarkable. Salivary glands: There is a 3 cm rounded lobulated hyperdense soft tissue mass involving the left parotid gland. Bones: No acute fracture. Soft tissues: Unremarkable. CT/CT facial bones wo con* [id number] IMPRESSION: 1. No acute findings. 2. 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
--- NOTE | 2024-10-01 14:32 | ECG_ITS ---
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 Measurements Intervals [place] Rate: 57 P: 71 NC: 175 QRS: -66 QRSD: 96 T: 83 QT: 473 QTc: 464 Interpretive Statements SINUS BRADYCARDIA INDETERMINATE AXIS LEFT ANTERIOR FASCICULAR BLOCK [QRS AXIS <= -45, QR IN I, RS IN II] ANTEROSEPTAL MYOCARDIAL INFARCTION , PROBABLY RECENT [40+ ms Q WAVE IN V1-V4] ACUTE NC Compared to ECG 07/26/2024 13:13:36 Indeterminate axis now present Left anterior fascicular block now present Sinus rhythm no longer presen. Sinus arrhythmia no longer present.Atrial abnormality no longer present Right ventricular hypertrophy no longer present.Myocardial infarct finding still present Electronically Signed On 10-01-2024 22:29:20 JIVE DEVELOPER by Mirta Dougherty M.D. [email or web address]
--- NOTE | 2024-10-01 14:32 | XRR_ITS ---
PROCEDURE INFORMATION: Exam: XR Chest Exam date and time: 10/01/2024 2:38 PM Age: 88 years old Clinical indication: Injury or trauma; Fall; Blunt trauma (contusions or hematomas) TECHNIQUE: Imaging protocol: Radiologic exam of the chest. Views: 1 view. COMPARISON: CR (CHEST, ) 09/04/2024 7:07 PM FINDINGS: Tubes, catheters and devices: Metallic plate and screw fixation device along the left lateral aspect of the T12 through L2 levels stabilizing an old L1 fracture similar to the prior study. Lungs: There are emphysematous changes in the lungs. Pleural spaces: Unremarkable. No pleural effusion. No pneumothorax. Heart/Mediastinum: Unremarkable. No cardiomegaly. Vasculature: There is calcified plaque in the aortic knob. Bones/joints: Mild thoracolumbar scoliotic curvature similar to the prior study. Generalized osteopenia. Multiple old rib fracture sites. There are chronic thoracic compression deformities.There are degenerative changes in the thoracic spine and across the acromioclavicular joints. XR/XR chest 1V portable [id number] IMPRESSION: No acute findings.Non acute findings as described above.
--- NOTE | 2024-10-01 14:33 | ED_ITS ---
HPI - Syncope 2 General: Chief Complaint: Syncope Stated Complaint: syncope Time Seen by Provider: 10/01/24 14:26 Source: patient and EMS Mode of arrival: EMS Limitations: no limitations History of Present Illness: 88-year-old female here from [facility] patient was on the toilet on the bathroom and had a possible syncopal event she had fell off toilet she states she did not pass out to spell staff states that he thinks she passed out she did hit her head and face she claims a headache and facial pain she has had multiple falls in the past she denies any pain elsewhere she is able answer my questions here appropriately. Associated symptoms: Reports headache(s); Deny abdominal pain, chest pain, fever(s) or nausea Related Data Home Medications Medication Instructions Recorded Confirmed Lactobacillus rhamnosus GG 10 1 cap PO DAILY PRN while on 02/02/24 10/01/24 billion cell capsule (Culturelle) antibiotics Prevagen Extra Strength 1 cap PO DAILY 02/02/24 10/01/24 acetaminophen 325 mg tablet 650 mg PO QID PRN Fever Or Pain 02/02/24 10/01/24 bisacodyl 10 mg rectal suppository 10 mg MD DAILY PRN Constipation 02/02/24 10/01/24 codeine 10 mg-guaifenesin 100 mg/5 2 ml PO TID PRN Cough 02/02/24 10/01/24 mL oral liquid (Virtussin AC) hydrocodone 5 mg-acetaminophen 325 1 - 2 tab PO Q4H PRN Pain 02/02/24 10/01/24 mg tablet ipratropium 0.5 mg-albuterol 3 mg 3 ml inhalation QID 02/02/24 10/01/24 (2.5 mg base)/3 mL nebulization soln magnesium hydroxide 400 mg/5 mL 30 ml PO DAILY PRN Constipation 02/02/24 10/01/24 oral suspension (Milk of Magnesia) omeprazole 20 mg capsule,delayed 20 mg PO DAILY 02/02/24 10/01/24 release ondansetron HCl 4 mg tablet 4 mg PO Q6H PRN Nausea And Vomiting 02/02/24 10/01/24 oxybutynin chloride 10 mg 10 mg PO DAILY 02/02/24 10/01/24 tablet,extended release 24 hr polyvinyl alcohol 1.4 % eye drops See Rx Instructions .Route 02/02/24 10/01/24 (Artificial Tears (polyvinyl .COMPLEX PRN eye dryness alcohol)) prednisone 5 mg tablet 5 mg PO DAILY 02/02/24 10/01/24 sodium phosphates 19 gram-7 118 ml MD DAILY PRN Constipation 02/02/24 10/01/24 gram/118 mL enema (Fleet Enema) peg 400 0.4 %-propylene glycol 1 drp ophthalmic (eye) QID 07/27/24 10/01/24 (PF) 0.3 % eye drops (Systane Ultra (PF)) peg 400-propylene glycol 0.4 %-0.3 1 drp ophthalmic (eye) BID PRN dry 07/27/24 10/01/24 % eye drops (Systane (propylene eyes glycol)) prednisolone acetate 1 % eye 1 drp ophthalmic (eye) TID 07/27/24 10/01/24 drops,suspension baclofen 5 mg tablet 5 mg PO BID PRN Back Pain 10/01/24 10/01/24 fluticasone propionate 50 2 spray intranasal DAILY 10/01/24 10/01/24 mcg/actuation nasal spray,suspension gabapentin 400 mg capsule 400 mg PO TID 10/01/24 10/01/24 mupirocin 2 % topical ointment See Rx Instructions .Route .COMPLEX 10/01/24 10/01/24 tramadol 50 mg tablet 50 - 100 mg PO Q8H PRN pain 10/01/24 10/01/24 Allergies Allergy/AdvReac Type Severity Reaction Status Date / Time No Known Allergies Allergy Verified 09/27/24 13:05 Review of Systems 2 Const: Denies: fever(s), chills, body aches or change in appetite Eyes: Denies: blurry vision or eye discomfort ENMT: Denies: throat pain or dental pain Card: Denies: chest pain Resp: Denies: dyspnea GI: Denies: abdominal pain, nausea, vomiting or diarrhea Musc: Denies: neck pain or back pain Skin/Breast: Denies: rash Neuro: Reports: headache(s) PFSH ED 2 PFSH: Medical History Recurrent UTI Mixed stress and urge urinary incontinence Fracture of superior pubic ramus Inferior pubic ramus fracture Chronic back pain Macular degeneration Depression DJD (degenerative joint disease) Alcohol use Discussed abstinence, increase of fall risk with alcohol Tobacco dependency Discussed abstinence Peripheral neuropathy COPD (chronic obstructive pulmonary disease) Surgical History History of lumbar fusion S/P ORIF (open reduction internal fixation) fracture Left hip History of appendectomy History of hernia surgery History of cataract surgery History of total abdominal hysterectomy and bilateral salpingo-oophorectomy Family History Father Brain tumor Social History Smoking and tobacco/nicotine status: current some day tobacco/nicotine user ( patient smokes 3-4 cig a month) cigarettes Alcohol intake: current Alcohol type: beer and hard liquor Substance/Drug Use: never Marital status: / Current occupational status: retired Physical Exam 2 Const: COMMON NORMALS: no acute distress, patient oriented x3 and healthy appearing HENMT: COMMON NORMALS: normocephalic HEAD & SCALP: normocephalic OTHER: Bruising noted to face and head Eye: COMMON NORMALS: Equal, round and reactive pupils present and EOMs intact bilaterally PUPIL: Yes Equal, round and reactive pupils present Neck/C-Spine: COMMON NORMALS: full ROM and supple Chest: COMMONS NORMALS: normal inspection of the chest and normal palpation of entire chest wall Resp: COMMON NORMALS: normal respiratory effort, No retractions, No use of accessory muscles and clear to auscultation bilaterally AUSCULTATION: clear to auscultation bilaterally Cardio: COMMON NORMALS: regular rate, regular rhythm and No murmurs present (Cardio) RATE: regular rate RHYTHM: regular rhythm GI: COMMON NORMALS: Normal to inspection, nondistended, normoactive bowel sounds present, Soft to palpation, non-tender and no masses PALPATION: Yes Soft to palpation Extremity: COMMON NORMALS: normal to inspection and full ROM Neuro: COMMON NORMALS: patient oriented x3, moves all extremities and no focal motor deficits Psych: COMMON NORMALS: mental status grossly normal, Normal thought process present and cooperative THOUGHT PROCESS: Normal thought process present Skin: COMMON NORMALS: no rashes or lesions noted and no wounds GENERAL SKIN EXAM: no rashes or lesions noted Course 2 Vital Signs: Vital signs: Vital Signs Temperature 97.6 F 10/01/24 14:22 Pulse Rate 69 10/01/24 16:50 Respiratory Rate 16 10/01/24 14:22 Blood Pressure 95/69 10/01/24 16:50 Pulse Oximetry 93 10/01/24 16:30 Oxygen Delivery Me thod Room Air 10/01/24 14:22 MDM - Syncope Medical Decision Making Patient presents to after syncopal event along with closed head injury her imaging blood work here is normal she is ambulatory here is normal orthostatics stable for discharge back to assisted living. Medical Records I reviewed the patient's medical records. Lab Data I reviewed the patient's lab results. 10/01/24 15:18 10/01/24 15:18 Radiology Impressions Cervical Spine CT 10/01/24 14:32 IMPRESSION: 1. No acute findings. 2. Stable lucent lesion involving the C2 vertebral body 3. Multilevel arthritic changes Chest X-Ray 10/01/24 14:32 IMPRESSION: No acute findings.Non acute findings as described above. Face CT 10/01/24 14:32 IMPRESSION: 1. No acute findings. 2. 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 Head CT 10/01/24 14:32 IMPRESSION: 1. No acute findings. 2. Cerebral atrophy is noted along with chronic white matter ischemic changes. Laboratory Results WBC 9.73 10^3/uL (3.29-11.43) 10/01/24 15:18 RBC 3.69 10^6/uL (3.85-5.65) L 10/01/24 15:18 Hgb 12.00 g/dL (11.27-16.99) 10/01/24 15:18 Hct 37.8 % (36-47) 10/01/24 15:18 MCV 102.4 fl (85-98) H 10/01/24 15:18 MCH 32.5 pg (27-33) 10/01/24 15:18 MCHC 31.7 g/dL (30-55) 10/01/24 15:18 RDW 13.2 % (12.1-15.1) 10/01/24 15:18 Plt Count 224 10^3/cmm (157-399) 10/01/24 15:18 MPV 9.3 fL (7.4-10.4) 10/01/24 15:18 Neut % (Auto) 69.1 % 10/01/24 15:18 Lymph % (Auto) 18.9 % 10/01/24 15:18 Rowan % (Auto) 9.8 % 10/01/24 15:18 Eos % (Auto) 1.1 % 10/01/24 15:18 Baso % (Auto) 0.5 % 10/01/24 15:18 Neut # (Auto) 6.72 10^3/uL (1.8-7.7) 10/01/24 15:18 Lymph # (Auto) 1.8 10^3/uL (0.8-4.8) 10/01/24 15:18 Rowan # (Auto) 1.0 10^3/uL (0.2-0.9) H 10/01/24 15:18 Eos # (Auto) 0.1 10^3/uL (0.0-0.8) 10/01/24 15:18 Baso # (Auto) 0.1 10^3/uL (0.0-0.1) 10/01/24 15:18 Nucleated RBC % (auto) 0 % 10/01/24 15:18 Nucleated RBCs # 0.0 /100WBC 10/01/24 15:18 Sodium 138 mmol/L (136-145) 10/01/24 15:18 Potassium 3.4 mmol/L (3.5-5.1) L 10/01/24 15:18 Chloride 100 mmol/L (98-107) 10/01/24 15:18 Carbon Dioxide 24 mmol/L (22-29) 10/01/24 15:18 Anion Gap 17.4 (5-19) 10/01/24 15:18 BUN 7 mg/dL (8-23) L 10/01/24 15:18 Creatinine 0.8 mg/dL (0.5-0.9) 10/01/24 15:18 GFR Calculation Not Reportable 10/01/24 15:18 Glucose 93 mg/dL (65-115) 10/01/24 15:18 Calculated Osmolality 284 mOsm/kg (285-295) L 10/01/24 15:18 Calcium 8.3 mg/dL (8.5-10.5) L 10/01/24 15:18 Total Bilirubin 0.5 mg/dL (0.15-1.2) 10/01/24 15:18 AST 13 U/L (0-32) 10/01/24 15:18 ALT < 5 U/L (0-33) 10/01/24 15:18 Alkaline Phosphatase 107 U/L (35-105) H 10/01/24 15:18 Total Protein 6.0 g/dL (6.6-8.7) L 10/01/24 15:18 Albumin 3.6 g/dL (3.5-5.2) 10/01/24 15:18 Globulin 2.4 g/dL (1.3-4.6) 10/01/24 15:18 All radiology interpretation(s) finalized by discharge EKG Data EKG 1: I personally reviewed and interpreted this EKG as follows: EKG interpretation date: 10/01/24 EKG interpretation time: 14:27 Interpretation: nsr hr [address] elevation qrs 96 qtc 468 Discharge Plan Discharge Patient Disposition: Home Clinical Impression: Syncope, Closed head injury Fall Qualifiers: Encounter type: initial encounter Qualified Code(s): W19.XXXA - Unspecified fall, initial encounter Condition: Stable Prescriptions: No Action ipratropium-albuterol 0.5 mg-3 mg(2.5 mg base)/3 mL solution for nebulization 3 ml INHALATION QID oxybutynin chloride 10 mg tablet extended release 24hr 10 mg PO DAILY hydrocodone-acetaminophen 5-325 mg Tablet 1 - 2 tab PO Q4H PRN (Reason: Pain) polyvinyl alcohol [Artificial Tears (polyvin alc)] 1.4 % Drops See Rx Instructions .ROUTE .COMPLEX PRN (Reason: eye dryness ) Rx Instructions: as directed both eyes as needed for eye dryness ondansetron HCl 4 mg Tablet 4 mg PO Q6H PRN (Reason: Nausea And Vomiting) prednisone 5 mg Tablet 5 mg PO DAILY magnesium hydroxide [Milk of Magnesia] 400 mg/5 mL Suspension 30 ml PO DAILY PRN (Reason: Constipation) bisacodyl 10 mg Suppository 10 mg MD DAILY PRN (Reason: Constipation) Fleet Enema 19-7 gram/118 mL Enema 118 ml MD DAILY PRN (Reason: Constipation) omeprazole 20 mg Capsule,Delayed Release(Dr/Ec) 20 mg PO DAILY codeine-guaifenesin [Virtussin AC] 10-100 mg/5 mL Liquid 2 ml PO TID PRN (Reason: Cough) Culturelle 10 billion cell Capsule 1 cap PO DAILY PRN (Reason: while on antibiotics) Prevagen Extra Strength 1 cap PO DAILY acetaminophen 325 mg tablet 650 mg PO QID PRN (Reason: Fever Or Pain) prednisolone acetate 1 % drops,suspension 1 drp ophthalmic (eye) TID Systane (propylene glycol) 0.4-0.3 % Drops 1 drp OPHTHALMIC (EYE) BID PRN (Reason: dry eyes ) Systane Ultra (PF) 0.4-0.3 % Drops 1 drp OPHTHALMIC (EYE) QID gabapentin 400 mg capsule 400 mg PO TID fluticasone propionate [Flonase] 50 mcg/actuation Reedy,Suspension 2 spray INTRANASAL DAILY Rx Instructions: administer into each nostril baclofen 5 mg tablet 5 mg PO BID PRN (Reason: Back Pain) tramadol 50 mg tablet 50 - 100 mg PO Q8H PRN (Reason: pain) mupirocin 2 % ointment See Rx Instructions .ROUTE .COMPLEX Rx Instructions: Apply to right second toe lateral border BID for 14 days Discharge Orders: Discharge ED (Routine); Ordered 10/01/24 Ordered By: Beto Gupta Referrals: Pete Hobbs DO [Primary Care Provider] - 4-7 days Discharge Diet: Advance as tolerated Discharge Activity: Resume usual activity Patient Instructions: Syncope (ED), Head Injury (ED) Coding Level of Care Code ED [employer] [facility] for [facility] Baxter
[2024-10-01 15:23] LABS: Basophils # 0.1 10^3/uL (0.0-0.1); Basophils % 0.5 %; Eosinophils # 0.1 10^3/uL (0.0-0.8); Eosinophils % 1.1 %; Hematocrit 37.8 % (36-47); Lymphocytes # 1.8 10^3/uL (0.8-4.8); Lymphocytes % 18.9 %; Mean Corpuscular HGB Conc 31.7 g/dL (30-55); Mean Corpuscular Hemoglobin 32.5 pg (27-33); Mean Corpuscular Volume 102.4 fl (85-98); Mean Platelet Volume 9.3 fL (7.4-10.4); Monocytes % 9.8 %; Neutrophils # 6.72 10^3/uL (1.8-7.7); Neutrophils % 69.1 %; Nucleated Red Blood Cells % 0 %; Platelet Count 224 10^3/cmm (157-399); Red Blood Count 3.69 10^6/uL (3.85-5.65); Red Cell Distribution Width 13.2 % (12.1-15.1); White Blood Count 9.73 10^3/uL (3.29-11.43)
[2024-10-01 15:30] VITALS: BP 116/62; O2SAT 97
[2024-10-01] MEDS: sodium chloride 0.9% 1,000 ML 999 ML IV (15:38)
[2024-10-01 15:39] LABS: Alanine Aminotransferase < 5 U/L (0-33); Albumin Level 3.6 g/dL (3.5-5.2); Alkaline Phosphatase 107 U/L (35-105); Anion Gap 17.4 (5-19); Aspartate Amino Transferase 13 U/L (0-32); Blood Urea Nitrogen 7 mg/dL (8-23); Calcium 8.3 mg/dL (8.5-10.5); Carbon Dioxide 24 mmol/L (22-29); Chloride 100 mmol/L (98-107); Creatinine Clr Calc Pharmacy 28.0264; Globulin 2.4 g/dL (1.3-4.6); Glucose 93 mg/dL (65-115); Osmolality Calculated 284 mOsm/kg (285-295); Potassium 3.4 mmol/L (3.5-5.1); Sodium 138 mmol/L (136-145); Total Bilirubin 0.5 mg/dL (0.15-1.2)
[2024-10-01 16:00] VITALS: O2SAT 93
[2024-10-01 16:30] VITALS: O2SAT 93
[2024-10-01 16:50] VITALS: BP 102/57; BP 116/61; BP 95/69; PULSE 69; PULSE 73; PULSE 76
[2024-10-01 17:08] VITALS: BP 104/56; PULSE 69; O2SAT 92
== END 2024-10-01 17:10 | disposition home or self-care (01) ==
PROVIDERS: Emergency Provider Emergency Medicine; PCP Internal Medicine
DX: R55 Syncope and collapse (principal); S09.8XXA Other specified injuries of head, initial encounter; W18.11XA Fall from or off toilet without subsequent striking against object, initial encounter; Z72.0 Tobacco use; J44.9 Chronic obstructive pulmonary disease, unspecified
CPT/HCPCS: 36415; 70450; 70486; 71045; 72125; 80053; 85025; 93005; 99285; J7030

== ENCOUNTER → 2024-12-27 13:28 | Outpatient (BNVA) | payer MEDICARE, MEDICAID, SELFPAY | PROVIDERS: PCP Internal Medicine; Visit Provider Podiatrist Foot & Ankle Surgery | DX: I73.9 Peripheral vascular disease, unspecified (principal); L60.3 Nail dystrophy | CPT/HCPCS: 11721 ==

== ENCOUNTER → 2025-05-28 07:30 | Outpatient (BNVA) | payer MEDICARE, MEDICAID, SELFPAY | PROVIDERS: PCP Internal Medicine; Visit Provider Podiatrist Foot & Ankle Surgery | DX: I73.9 Peripheral vascular disease, unspecified (principal); L60.3 Nail dystrophy | CPT/HCPCS: 11721 ==

== ENCOUNTER → 2025-08-27 08:23 | Outpatient (BNVA) | payer MEDICARE, MEDICAID, SELFPAY | PROVIDERS: PCP Internal Medicine; Visit Provider Podiatrist Foot & Ankle Surgery | DX: I73.9 Peripheral vascular disease, unspecified (principal); L60.3 Nail dystrophy | CPT/HCPCS: 11721 ==

== ENCOUNTER 2025-08-30 17:56 | Emergency (ER) | payer MEDICARE, MEDICAID, SELFPAY ==
--- OUTSIDE RECORDS SUMMARY | 2008-12-27 18:00 | XMS_ITS | Continuity of Care Document ---
Author Organization [facility] Address [address] [place] [address] Phone Care Team Providers Care Checker Dump Grounds Name Role Phone Unavailable Unavailable Unavailable Medications Medication Instructions Dosage Effective Dates (start - stop) Status Comments Elmiron 100 mg Cap 1 (one) CAPSULE 100 MG ORAL - Active Actonel 35 mg Tab 1 (one) TABLET 35 MG ORAL - Active Calcium 600 600 mg (1,500 mg) Tab 1 (one) TABLET 600 MG ORAL - Active Travatan Z 0.004 % Eye Drops SOLUTION 0.004% OPHTHALMIC - Active gabapentin 800 mg Tab 1 (one) TABLET 800 MG ORAL - Active tramadol 50 mg Tab 1 (one) TABLET 50 MG ORAL - Active Procedures Procedure Date OFFICE/OUTPATIENT VISIT, NEW Advance Directives Directive Yes / No Effective Date File Name No Information Encounters Encounter Description Practice Location Reason(s) For Visit Diagnoses Date Provider Providers Copied on Encounter [facility], [address], [place], [place], [id number], [place] tel:[phone] Conversion No Information 9 No Information OFFICE/OUTPAT IENT VISIT, NEW [facility] [address] [facility] [address], [place], [place], [id number], tel:[phone] No Information 8 No Information [facility], [address], [place], [place], [id number], [place] tel:[phone] Conversion No Information No Information Family History Family Member Type Diagnosis Age At Onset No Information Payers Payer name Insurance type Covered alliance party ID Authoriza tion(s) No Information Social History Type Description Quantity Date Captured Comments Sex Female Smoking Status No Information Chief Complaint And Reason For Visit No Information Reason For Referral Reason For Referral No Information History Of Present Illness Encounter Date Complaint History Of Prese nt Illness No Information Functional Status Date Functional Assessmen t No Information Instructions Date Instruction Additional Infor mation No Information Assessments Type Assessment Date No Information Patient Care Teams Name Effective Dates (start - stop) Status Members No Information
[2025-08-30 17:20] VITALS: BP 111/74; PULSE 92; RESP 18; TEMP 37.1; O2SAT 93; BMI 15.5
[2025-08-30 17:29] VITALS: BP 111/74; O2SAT 93
--- NOTE | 2025-08-30 17:31 | CTR_ITS ---
PROCEDURE INFORMATION: Exam: CT Head Without Contrast Exam date and time: 08/30/2025 5:51 PM Age: 89 years old Clinical indication: Injury or trauma; Blunt trauma (contusions or hematomas); PT presents to ED via [facility] from [facility] d/t fall. PT was attempting to transfer to and missed and fell. R eyebrow laceration noted, steri-strips applied prior to arrival. ; Additional info: Fall with laceration TECHNIQUE: Imaging protocol: Computed tomography of the head without contrast. Radiation optimization: All CT scans at this facility use at least one of these dose optimization techniques: automated exposure control; mA and/or kV adjustment per patient size (includes targeted exams where dose is matched to clinical indication); or iterative reconstruction. COMPARISON: CT head wo con* [id number] 10/01/2024 2:45 PM RADIATION DOSE METRICS: Total DLP (mGy-cm): 1031.47 FINDINGS: Brain: Subcortical and periventricular white matter changes consistent with small-vessel ischemic disease in the appropriate clinical setting. Small-vessel ischemic disease. No acute intracranial abnormality. Cerebral ventricles: No ventriculomegaly. Paranasal sinuses: Visualized sinuses are unremarkable. No fluid levels. Mastoid air cells: Visualized mastoid air cells are well aerated. Bones: Unremarkable. No acute fracture. Soft tissues: Unremarkable. CT/CT head wo con* [id number] IMPRESSION: 1. No acute intracranial abnormality. 2. Small-vessel ischemic disease.
--- NOTE | 2025-08-30 17:31 | CTR_ITS ---
PROCEDURE INFORMATION: Exam: CT Cervical Spine Without Contrast Exam date and time: 08/30/2025 5:51 PM Age: 89 years old Clinical indication: Injury or trauma; PT presents to ED via [facility] from [facility] d/t fall. PT was attempting to transfer to and missed and fell. R eyebrow laceration noted, steri-strips applied prior to arrival. TECHNIQUE: Imaging protocol: Computed tomography of the cervical spine without contrast. Radiation optimization: All CT scans at this facility use at least one of these dose optimization techniques: automated exposure control; mA and/or kV adjustment per patient size (includes targeted exams where dose is matched to clinical indication); or iterative reconstruction. COMPARISON: CT cervical spin wo con* [id number] 10/01/2024 2:45 PM RADIATION DOSE METRICS: Total DLP (mGy-cm): 128.6 FINDINGS: Bones: Grade 1 anterolisthesis of C3 on C4 and C7 on T1. Severe degenerative disc disease at C4-C5, C5-C6 and C6-C7 and T1-T2. Severe neural foraminal narrowing on the right at C4-C5 of the left at C5-C6 and C6-C7. No acute cervical spine fracture. Lungs: Partially visualized opacities in the right lung apex extending inferolaterally. Soft tissues: Unremarkable. Other findings: There is a 3.7 x 3.1 cm heterogeneously hyperdense mass (64 HU) in the left infra auricular station. CT/CT cervical spin wo con* [id number] IMPRESSION: 1. There is a 3.7 x 3.1 cm heterogeneously hyperdense mass (64 HU) in the left infra auricular station. Correlate with history as this mass was present partially visualized on the cervical CT dated 02/15/2020. 2. No acute cervical spine fracture.
--- NOTE | 2025-08-30 17:31 | XRR_ITS ---
PROCEDURE INFORMATION: Exam: XR Right Hip Exam date and time: 08/30/2025 5:58 PM Age: 89 years old Clinical indication: Injury or trauma; Fall; Blunt trauma (contusions or hematomas); Right; Hip; Additional info: Fall with injury, w pelvis please TECHNIQUE: Imaging protocol: Radiologic exam of the right hip. Views: 1 view hip with pelvis when performed. COMPARISON: CR XR pelvis 1-2V* [id number] 04/25/2020 9:51 AM FINDINGS: Bones/joints: Prominent heterotopic bone formation just superior to the greater tuberosity. No acute fracture. Old healed fracture deformity of the left superior and inferior pubic rami. Intramedullary taylor in the proximal left femur with 2 proximal interlocking screws. Soft tissues: Unremarkable. XR/XR hip RT 2-3V wo/w pel* [id number] IMPRESSION: 1. Prominent heterotopic bone formation just superior to the greater tuberosity. 2. No acute fracture.
--- NOTE | 2025-08-30 17:32 | W.ED.FALL ---
HPI - Fall General: Chief Complaint: Fall Stated Complaint: fall - head lac, back/rib and right wrist pain History of Present Illness: Patient is 89-year-old female with gait instability, utilizes walker, wheelchair, that stated she was shuffling, slipped, and fell on her right hip, and has laceration above her right brow. Her laceration to her right brow was Steri-Stripped. Patient states this is fine, and she does not need sutures here. She complains of right hip pain with ambulation. This occurred just prior to arrival. Patient arrived via EMS. Denies any dysuria, confusion. Associated symptoms-after fall: Reports difficulty walking; Denies chest pain or hematuria Related Data Home Medications ?Medication ?Instructions ?Recorded ?Confirmed Lactobacillus rhamnosus GG 10 1 cap PO DAILY PRN while on 02/02/24 08/27/25 billion cell capsule (Culturelle) antibiotics Prevagen Extra Strength 1 cap PO DAILY 02/02/24 08/27/25 acetaminophen 325 mg tablet 650 mg PO QID PRN Fever Or Pain 02/02/24 08/27/25 bisacodyl 10 mg rectal suppository 10 mg NC DAILY PRN Constipation 02/02/24 08/27/25 codeine 10 mg-guaifenesin 100 mg/5 2 ml PO TID PRN Cough 02/02/24 08/27/25 mL oral liquid (Virtussin AC) hydrocodone 5 mg-acetaminophen 325 1 - 2 tab PO Q4H PRN Pain 02/02/24 08/27/25 mg tablet ipratropium 0.5 mg-albuterol 3 mg 3 ml inhalation QID 02/02/24 08/27/25 (2.5 mg base)/3 mL nebulization soln magnesium hydroxide 400 mg/5 mL 30 ml PO DAILY PRN Constipation 02/02/24 08/27/25 oral suspension (Milk of Magnesia) omeprazole 20 mg capsule,delayed 20 mg PO DAILY 02/02/24 08/27/25 release ondansetron HCl 4 mg tablet 4 mg PO Q6H PRN Nausea And Vomiting 02/02/24 08/27/25 oxybutynin chloride 10 mg 10 mg PO DAILY 02/02/24 08/27/25 tablet,extended release 24 hr polyvinyl alcohol 1.4 % eye drops See Rx Instructions .Route 02/02/24 08/27/25 (Artificial Tears (polyvinyl .COMPLEX PRN eye dryness alcohol)) prednisone 5 mg tablet 5 mg PO DAILY 02/02/24 08/27/25 sodium phosphates 19 gram-7 118 ml NC DAILY PRN Constipation 02/02/24 08/27/25 gram/118 mL enema (Fleet Enema) peg 400 0.4 %-propylene glycol 1 drp ophthalmic (eye) QID 07/27/24 08/27/25 (PF) 0.3 % eye drops (Systane Ultra (PF)) peg 400-propylene glycol 0.4 %-0.3 1 drp ophthalmic (eye) BID PRN dry 07/27/24 08/27/25 % eye drops (Systane (propylene eyes glycol)) prednisolone acetate 1 % eye 1 drp ophthalmic (eye) TID 07/27/24 08/27/25 drops,suspension baclofen 5 mg tablet 5 mg PO BID PRN Back Pain 10/01/24 08/27/25 fluticasone propionate 50 2 spray intranasal DAILY 10/01/24 08/27/25 mcg/actuation nasal spray,suspension gabapentin 400 mg capsule 400 mg PO TID 10/01/24 08/27/25 mupirocin 2 % topical ointment See Rx Instructions .Route .COMPLEX 10/01/24 08/27/25 tramadol 50 mg tablet 50 - 100 mg PO Q8H PRN pain 10/01/24 08/27/25 Previous Rx's ?Medication ?Instructions ?Recorded cefdinir 300 mg capsule 300 mg PO BID 10 days #20 caps 08/30/25 Allergies Allergy/AdvReac Type Severity Reaction Status Date / Time No Known Allergies Allergy Verified 08/27/25 08:25 Review of Systems General: Reports: 10 or more systems reviewed and unremarkable except in HPI and below Const: Denies: fever(s) or chills Eyes: Denies: change in vision or eye redness Card: Reports: swelling of feet/ankles and leg pain with exertion; Denies: chest pain or palpitations Resp: Denies: dyspnea GI: Denies: nausea or vomiting : Denies: hematuria Musc: Reports: extremity pain and extremity swelling Skin/Breast: Reports: dry skin, nail changes and change in hair Neuro: Reports: numbness in extremities, sensory changes and difficulty walking Psych: Denies: suicidal ideation or homicidal ideation Endo: Reports: cold intolerance Jong/Lymph: Denies: easy bruising PFSH ED PFSH: Medical History (Updated 08/31/25 @ 00:30 by SHAYLA Smith) Recurrent UTI Mixed stress and urge urinary incontinence Fracture of superior pubic ramus Inferior pubic ramus fracture Chronic back pain Macular degeneration Depression DJD (degenerative joint disease) Alcohol use Discussed abstinence, increase of fall risk with alcohol Tobacco dependency Discussed abstinence Peripheral neuropathy COPD (chronic obstructive pulmonary disease) Surgical History History of lumbar fusion S/P ORIF (open reduction internal fixation) fracture Left hip History of appendectomy History of hernia surgery History of cataract surgery History of total abdominal hysterectomy and bilateral salpingo-oophorectomy Family History Father Brain tumor Social History Smoking and tobacco/nicotine status: current some day tobacco/nicotine user ( patient smokes 3-4 cig a month) cigarettes Alcohol intake: current Alcohol type: beer and hard liquor Substance/Drug Use: never Marital status: / Current occupational status: retired Physical Exam Const: COMMON NORMALS: no acute distress and patient oriented x3 NUTRITIONAL APPEARANCE: thin HENMT: COMMON NORMALS: normocephalic, hearing grossly normal bilaterally and TM's normal bilaterally HEAD & SCALP: normocephalic FACE & SINUS IMAGES:  1. Laceration was steri-strips TYMPANIC MEMBRANE: TM's normal bilaterally Resp: COMMON NORMALS: normal respiratory effort, No retractions and clear to auscultation bilaterally AUSCULTATION: clear to auscultation bilaterally Cardio: COMMON NORMALS: regular rate and regular rhythm RATE: regular rate RHYTHM: regular rhythm : COMMON NORMALS: Yes no CVA tenderness BLADDER/KIDNEY EXAM: Yes no CVA tenderness Back/Pelvis: COMMON NORMALS: no CVA tenderness, thoracic and lumbar spine normal to inspection, no thoracic nor lumbar tenderness, thoraco-lumbar ROM normal and straight leg raise negative bilaterally THORACIC SPINE/UPPER BACK: Yes normal to inspection, Yes thoracic ROM normal, No thoracic spinal tenderness and No paraspinal muscle tenderness LUMBAR SPINE/LOWER BACK: Yes normal to inspection, Yes lumbar ROM normal, Yes ROM limited and No lumbar spinal tenderness PELVIS: Yes buttocks normal Extremity: COMMON NORMALS: full ROM and capillary refill normal; negative for normal to inspection NARRATIVE EXTREMITY EXAM: Slight external rotation of the right leg, with shortening of the left leg (no complaints of left leg or elicited pain on exam) GENERAL: Yes normal exam except as noted LEFT LOWER EXTREMITY: Yes hip joint Neuro: COMMON NORMALS: patient oriented x3 Psych: COMMON NORMALS: mental status grossly normal, Normal thought process present, cooperative, normal affect, speech normal and activity/motor behavior normal SPEECH: Yes normal speech THOUGHT PROCESS: Normal thought process present Skin: NARRATIVE SKIN EXAM: Laceration as noted. Course Vital Signs: Vital signs: Vital Signs Temperature 98.7 F 08/30/25 17:20 Pulse Rate 81 08/30/25 19:54 Respiratory Rate 16 08/30/25 19:54 Blood Pressure 128/68 08/30/25 19:54 Pulse Oximetry 96 08/30/25 19:54 Oxygen Delivery Me thod Room Air 08/30/25 17:29 Oxygen Flow Rate 2 08/30/25 17:20 MDM - Fall Medical Decision Making Patient is a 89-year-old female with gait instability, that had a shuffling fall. Will check urinalysis to ensure she does not have UTI associated with her gait instability. Will obtain CT of her head and neck given her age, and laceration as well. Additional concerns is her physical exam findings noted on lower extremities, although I cannot elicit any pain. This could be a normal variant for patient. As far as her laceration on her forehead, just above the right lateral eyebrow, she has Steri-Strips in place without any bleeding around this area. She states that she does not believe she needs sutures and is happy with her Steri-Strips. I did pull back the Steri-Strips, and there was minimal superficial bleeding. The Steri-Strips were placed back in place. Medical Records I reviewed the patient's medical records. Lab Data Radiology Impressions Cervical Spine CT 08/30/25 17:31 IMPRESSION: 1. There is a 3.7 x 3.1 cm heterogeneously hyperdense mass (64 HU) in the left infra auricular station. Correlate with history as this mass was present partially visualized on the cervical CT dated 02/15/2020. 2. No acute cervical spine fracture. Head CT 08/30/25 17:31 IMPRESSION: 1. No acute intracranial abnormality. 2. Small-vessel ischemic disease. Hip/Pelvis X-Ray 08/30/25 17:31 IMPRESSION: 1. Prominent heterotopic bone formation just superior to the greater tuberosity. 2. No acute fracture. Laboratory Results Urine Color Yellow (Yellow) 08/30/25 18:52 Urine Appearance Cloudy (CLEAR) A 08/30/25 18:52 Urine pH 6.5 (5-7) 08/30/25 18:52 Ur Specific [place] 1.018 (1.005-1.030) 08/30/25 18:52 Urine Protein Negative (Negative) 08/30/25 18:52 Urine Glucose (UA) Negative (Normal) 08/30/25 18:52 Urine Ketones Negative (Negative) 08/30/25 18:52 Urine Blood Non-haemolysed trace (Negative) 08/30/25 18:52 Urine Nitrate Negative (Negative) 08/30/25 18:52 Urine Bilirubin Negative (Negative) 08/30/25 18:52 Urine Urobilinogen 1.0 mg/dL (Negative) 08/30/25 18:52 Ur Leukocyte Esterase 1+ (Negative) A 08/30/25 18:52 Urine RBC 3-5 /hpf (0-2) 08/30/25 18:52 Urine WBC 21-50 /hpf (0-5) H 08/30/25 18:52 Ur Squamous Epith Cells 6-10 /hpf (0-5) 08/30/25 18:52 Amorphous Sediment Not Reportable 08/30/25 18:52 Urine Bacteria 4+ /hpf (NONE) H 08/30/25 18:52 Hyaline Casts 0-4 /lpf H 08/30/25 18:52 All radiology interpretation(s) finalized by discharge Discharge Plan Discharge Patient Disposition: Home Clinical Impression: Ambulatory dysfunction, Laceration of face, Pyuria, Acute hip pain, Mass of ear auricle Condition: Stable Prescriptions: New cefdinir 300 mg capsule 300 mg PO BID 10 Days Qty: 20 0RF No Action ipratropium-albuterol 0.5 mg-3 mg(2.5 mg base)/3 mL solution for nebulization 3 ml INHALATION QID oxybutynin chloride 10 mg tablet extended release 24hr 10 mg PO DAILY hydrocodone-acetaminophen 5-325 mg Tablet 1 - 2 tab PO Q4H PRN (Reason: Pain) polyvinyl alcohol [Artificial Tears (polyvin alc)] 1.4 % Drops See Rx Instructions .ROUTE .COMPLEX PRN (Reason: eye dryness ) Rx Instructions: as directed both eyes as needed for eye dryness ondansetron HCl 4 mg Tablet 4 mg PO Q6H PRN (Reason: Nausea And Vomiting) prednisone 5 mg Tablet 5 mg PO DAILY magnesium hydroxide [Milk of Magnesia] 400 mg/5 mL Suspension 30 ml PO DAILY PRN (Reason: Constipation) bisacodyl 10 mg Suppository 10 mg NC DAILY PRN (Reason: Constipation) Fleet Enema 19-7 gram/118 mL Enema 118 ml NC DAILY PRN (Reason: Constipation) omeprazole 20 mg Capsule,Delayed Release(Dr/Ec) 20 mg PO DAILY codeine-guaifenesin [Virtussin AC] 10-100 mg/5 mL Liquid 2 ml PO TID PRN (Reason: Cough) Culturelle 10 billion cell Capsule 1 cap PO DAILY PRN (Reason: while on antibiotics) Prevagen Extra Strength 1 cap PO DAILY acetaminophen 325 mg tablet 650 mg PO QID PRN (Reason: Fever Or Pain) prednisolone acetate 1 % drops,suspension 1 drp ophthalmic (eye) TID Systane (propylene glycol) 0.4-0.3 % Drops 1 drp OPHTHALMIC (EYE) BID PRN (Reason: dry eyes ) Systane Ultra (PF) 0.4-0.3 % Drops 1 drp OPHTHALMIC (EYE) QID gabapentin 400 mg capsule 400 mg PO TID fluticasone propionate [Flonase] 50 mcg/actuation Flora,Suspension 2 spray INTRANASAL DAILY Rx Instructions: administer into each nostril baclofen 5 mg tablet 5 mg PO BID PRN (Reason: Back Pain) tramadol 50 mg tablet 50 - 100 mg PO Q8H PRN (Reason: pain) mupirocin 2 % ointment See Rx Instructions .ROUTE .COMPLEX Rx Instructions: Apply to right second toe lateral border BID for 14 days Discharge Orders: Discharge ED (Routine); Ordered 08/30/25 Ordered By: Savannah Johnson Referrals: Pete Hobbs DO [Primary Care Provider, Internal Medicine] Discharge Diet: Usual diet Discharge Activity: Resume usual activity Patient Instructions: Fall Prevention for Older Adults (ED), Urinary Tract Infection in Older Adults (ED), Patient Portal & Ernesto Instructions Activity Restrictions/Additional Instructions: - Keep the area on your forehead covered with the Steri-Strips and/or a Band-Aid for maximum healing -You did have a urine infection which most likely caused your gait instability - Antibiotics have been sent to the pharmacy. Use as directed. Your urine culture is pending. - No additional findings were noted on your CAT scans -Utilize safety measures when walking. Your right hip will help. There was no fracture, although you do have severe osteoarthritis. -Take a Tylenol 3 times a day, extra strength is fine, scheduled to avoid any narcotics that cause additional gait instability -You have a mass in your left ear that you will need to follow-up with your doctor about for additional workup - Please return to ED if you have worsening issues. Thank you for choosing [facility] for your healthcare needs today. You have been screened and evaluated and felt safe for discharge. Health conditions do change or evolve sometimes and as such it is important that you follow up with your Primary Doctor to be re checked, 3-5 days is a general good time frame for follow up. You are always welcome to return to the ED for re assessment if your symptoms are worsening or you have new concerns Print Language: Icelandic Coding Level of Care Code ED Production Worker for Lopez Baxter
--- OUTSIDE RECORDS SUMMARY | 2025-08-30 18:12 | XMS_ITS | Clinical Summary ---
Author Organization [facility] Address [address] Chen: [place] [id number] Care Team Providers Care Paper Handler Name Role Phone Max Curtis DO Primary Care Provider [phone] Allergies No known active allergies Medications citalopram (CeleXA) 20 mg tablet TAKE 1 TABLET BY MOUTH ONCE DAILY FOR MOOD 07/21/2020 Active gabapentin (NEURONTIN) 400 mg capsule Take 400 mg by mouth 3 times daily. 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 Gender Identity Not on file Sexual Orientation Not on file Last Filed Vital Signs Vital Sign Reading Time Taken Comments Blood Pressure 121/73 08/28/2020 1:33 PM TECHNOLOGY PROJECT MANAGER Pulse 83 08/28/2020 1:33 PM TECHNOLOGY PROJECT MANAGER Temperature - - Respiratory Rate - - Oxygen Saturation - - Inhaled Oxygen Concentration - - Weight 33.6 kg (74 lb) 08/28/2020 1:33 PM TECHNOLOGY PROJECT MANAGER Height 152.4 cm (5') 08/28/2020 1:33 PM TECHNOLOGY PROJECT MANAGER Body Mass Index 14.45 08/28/2020 1:33 PM TECHNOLOGY PROJECT MANAGER Plan of Treatment Health Maintenance Due Date Last Done Comments DTAP/TDAP/TD VACCINES (1 - Tdap) 1955 PNEUMOCOCCAL VACCINE 50+ YEARS (1 of 2 - PCV) 10/02/19 55 ZOSTER VACCINE (1 of 2) 1986 OSTEOPOROSIS SCREENING 2001 RSV VACCINE (60+ or ) (1 - 1-dose 75+ series) 2011 INFLUENZA VACCINE (#1) 2025 Insurance [id number] [place] [address] MEDICARE PART A AND B [facility] [id number] MEDICAID [place] Care Teams Paper Handler Relationship Specialty Start Date End Date Max Curtis DO PCP - General Family Practice 08/28/20
--- OUTSIDE RECORDS SUMMARY | 2025-08-30 18:12 | XMS_ITS | Data Portability ---
Author Organization [facility] Edward Read, [facility] Address [address] [place] [address] [place] [address] Assessment No assessment recorded. Plan of Treatment Reminders Order Date Submit Date Provider Last Modified By Organization Details Last Modified Time Details Appointments None record ed. Lab None record ed. Referral None record ed. Procedures None record ed. Surgeries None record ed. Imaging None record ed. Medication Orders None record ed. Patient TargetsNo targets recorded. Patient Instructions Encounter Date Encounter Id Patient Instructions Last Modified By Organization Details Last Modified Time 03/26/2025 [id number] Moved to [facility] due to continued confusion and decline in ability to care for self. Adjusting well, will schedule budesonide nebs bid. [email or web address] Not available 04/02/2025 13:45:18 04/12/2025 [id number] Doing well, breathing at baseline. Vitals stable. Not available 04/12/2025 12:03:56 06/21/2025 [id number] increased confusion, UA pending. Reports she did have some burning with urination, but improved. d/c zoloft. [email or web address] Not available 06/21/2025 13:33:27 08/16/2025 [id number] Doing well, no complaints. Vitals stable, breathing at baseline. [email or web address] Not available 08/16/2025 14:10:20 Reason for Referral None Reported. Problems Name Problem SNOMED Code Status Onset Date Resolution Date Notes Provider Name and Address Organization Details Recorded Time Chronic obstructiv e pulmonary disease 48311703 Active 2022 [facility] 20:[facility]:07 Chronic back pain 748111840 Active 2022 ROXANA wadsworth, [facility] 3 20:43:32 Anxiety 47507316 Active 2022 ROXANA wadsworth, [facility] 3 14:56:41 Acute exacerbati on of chronic obstructiv e pulmonary disease 778525612 [facility] 13:28:01 Need for personal care assistance 9015264872205 9106 Active 2023 ROXANA wadsworth, [facility] 4 14:25:58 Hospital inpatient stay within past 30 days 1201120501972 Active 2023 ROXANA HOOPER [facility] 4 11:37:22 Community acquired pneumonia 473952459 Active 2023 ROXANA HOOPER [facility] 4 11:37:23 Acute urinary tract infection 245094177 Active 2023 ROXANA HOOPER [facility] 4 11:37:25 Recurrent falls 326435917 Active 2023 ROXANA HOOPER [facility] 4 12:16:05 Metabolic encephalop athy 57418573 Active 2023 ROXANA HOOPER [facility] 4 12:06:27 Hyponatrem ia 84610409 Active 2023 ROXANA HOOPER [facility] 4 12:06:34 Acute confusion 619272887 Active 2024 ROXANA HOOPER [facility] 17:06:06 Problem Notes None recorded. Medical Equipment None Reported. Medications Name Sig Start Date Stop Date Status Note LastModified by Organization Details LastModified Time amoxicilli n 500 mg capsule active Not Available Not Available Not Available gabapentin 600 mg tablet TAKE 1 AND 1/2 TABLET BY MOUTH THREE TIMES DAILY active Not Available Not Available No t Available ipratropiu m 0.5 mg-albuter ol 3 mg (2.5 mg base)/3 mL nebulizati on soln active Not Available Not Available Not Available oxybutynin chloride ER 10 mg tablet,ext ended release 24 hr active Not Available Not Available Not Available azithromyc in 250 mg tablet active Not Available Not Available Not Available hydrocodon e 5 mg-acetami nophen 325 mg tablet 1-2 every four hours, as needed 2023 active Recorded 01/01/2023 4:37PM by Price Maldonado MD, Refill Request; Refill Quantity: 0; Not Available Not Available Not Available ondansetro n HCl 4 mg tablet active Not Available Not Available Not Available prednisone 20 mg tablet active Not Available Not Available Not Available gabapentin 400 mg capsule active Not Available Not Available Not Available prednisone 5 mg tablet active Not Available Not Available Not Available sulfametho xazole 800 mg-trimeth oprim 160 mg tablet active Not Available Not Available No t Available tramadol 50 mg tablet active Not Available Not Available Not Available neomycin-b acitracin- polymyxn 3.5 mg-400 unit-10,00 0 unit/gram eye oint active Not Available Not Available Not Available citalopram 20 mg tablet active Not Available Not Available Not Available prednisolo ne acetate 1 % eye drops,susp ension active Not Available Not Available Not Available lorazepam 0.5 mg tablet Take 1 tablet twice a day by oral route as needed for 60 days. active Not Available Not Available No t Available erythromyc in 5 mg/gram (0.5 %) eye ointment active Not Available Not Available Not Available omeprazole 20 mg capsule,de layed release TAKE 1 CAPSULE BY MOUTH ONE TIME DAILY active Not Available Not Available No t Available budesonide 0.5 mg/2 mL suspension for nebulizati on active Not Available Not Available Not Available montelukas t 10 mg tablet active Not Available Not Available Not Available codeine 10 mg-guaifen esin 100 mg/5 mL oral liquid active Not Available Not Available Not Available mupirocin 2 % topical ointment active Not Available Not Available Not Available levofloxac in 500 mg tablet active Not Available Not Available Not Available cefdinir 300 mg capsule active Not Available Not Available Not Available ipratropiu m bromide 0.02 % solution for inhalation active Not Available Not Available N ot Available neomycin-p olymyxin-h ydrocort 3.5 mg-10,000 unit/mL-1 % ear drops,susp active Not Available Not Available N ot Available lorazepam every four hours, as needed 2021 active Recorded 03/06/2022 12:02PM by Roxana Hooper, RN, Office Visit; Refill Quantity: 0; Not Available Not Available Not Available Lumigan 0.01 % eye drops active Not Available Not Available Not Available Virtussin AC three times daily 2020 active Recorded 04/25/2022 9:51AM by Daphnie Bruner, Office Visit; Refill Quantity: 0; Not Available Not Available Not Available baclofen 5 mg tablet active Not Available Not Available No t Available Vitals Date Recorded Body height Heart rate Respiratory rate Body temperature Oxygen saturation Oxygen saturation in Arterial blood by Pulse oximetry Systolic And Diastolic Provider Name and Address Organization Details Last Updated DateTime 5 152.4 cm 74 /min 20 /min 97.4 [degF] 96 % 96 % 114/60 mm[Hg] [facility] 5 13:36:17 Date Recorded Body height Heart rate Respiratory rate Body temperature Oxygen saturation Oxygen saturation in Arterial blood by Pulse oximetry Systolic And Diastolic Provider Name and Address Organization Details Last Updated DateTime 5 152.4 cm 68 /min 18 /min 97.6 [degF] 95 % 95 % 112/74 mm[Hg] [facility] 5 12:02:10 Date Recorded Body height Heart rate Respiratory rate Body temperature Oxygen saturation Oxygen saturation in Arterial blood by Pulse oximetry Systolic And Diastolic Provider Name and Address Organization Details Last Updated DateTime 5 152.4 cm 62 /min 16 /min 97.8 [degF] 91 % 91 % 130/60 mm[Hg] ROXANA HOOPER [facility] 13:31:12 Date Recorded Body height Body mass index (BMI) Body weight Heart rate Respiratory rate Body temperature Oxygen saturation Oxygen saturation in Arterial blood by Pulse oximetry Systolic And Diastolic Provider Name and Address Organization Details Last Updated DateTime 5 152.4 cm 14.5 kg/m2 01299.8 4 g 80 /min 18 /min 98.2 [degF] 95 % 95 % 112/60 mm[Hg] ROXANA HOOPER [facility] 5 14:08:41 Social History Question Answer Notes LastModified by Organizat ion Details LastModified Time Tobacco Smoking Status Former Smoker ROXANA HOOPER [facility] 01/26/2023 20:41:52 Have You Had Direct Contact, Or Contact During Intimacy, With Monkeypox Rash, Scabs, Or Body Fluids From A Person With Monkeypox? No [email or web address] Information not available 01/26/2023 Have You Recently Traveled Abroad? No [email or web address] Information not available 01/26/2023 Do You Have Difficulty Walking Or Climbing Stairs? Yes [email or web address] Information not available 01/26/2023 Sex: Unknown Functional Status Question Answer Note LastModified by Organization D etails LastModified Time Do you have difficulty doing errands alone? Yes Information not available 01/26/2023 Are you able to care for yourself independently? No [email or web address] Information not available 01/26/2023 Mental Status None recorded. Family History Nothing Reported Notes:Hypertension, Hypercho lesterolemia, Diabetes Mellitus, Bleeding disorder, CVA, thyroid disorder, Breast Cancer, thyroid CA Medical History No medical history recorded. Gynecological HistoryNo gynecological history recorded. Obstetrics History GPAL:G 0 P 0 0 0 0 Immunizations Vaccine Type Date Status Note Provider Nam e and Address Organization Details Recorded Time Influenza, high-dose, trivalent, PF 7 completed Not Available [facility] 08/16/2025 13:57:27 Pneumococcal conjugate PCV 13 7 completed Not Available [facility] 08/16/2025 13:57:27 Influenza, split virus, quadrivalent, PF 9 completed [facility] 08/16/[facility] 13:57:27 COVID-19, mRNA, LNP-S, PF, 100 mcg/0.5mL dose or 50 mcg/0.25mL dose 1 completed Not Available [facility] 08/16/2025 13:57:27 COVID-19, mRNA, LNP-S, PF, 100 mcg/0.5mL dose or 50 mcg/0.25mL dose 1 completed Not Available [facility] 08/16/2025 13:57:27 COVID-19, mRNA, LNP-S, PF, 100 mcg/0.5mL dose or 50 mcg/0.25mL dose 1 completed Not Available [facility] 08/16/2025 13:57:27 Tdap 2 completed Not Available [facility] 08/16/2025 13:57:27 COVID-19, mRNA, LNP-S, PF, 100 mcg/0.5mL dose or 50 mcg/0.25mL dose 2 completed Not Available [facility] 08/16/2025 13:57:27 COVID-19, mRNA, LNP-S, bivalent, PF, 50 mcg/0.5 mL or 25mcg/0.25 mL dose 2 completed Not Available [facility] 08/16/2025 13:57:27 Past Encounters Encounter ID Performer Location Encounter Start Date Encounter Closed Date Diagnosis/Indication Diagnosis SNOMED-CT Code Diagnosis ICD10 Code Diagnosis IMO Codes Diagnosis Note [id number] Pete Hobbs DO [facility]) [address] [place] [address] 01/26/2023 09:29:28 02/02/2023 11:17:22 Chronic obstructive pulmonary disease 98775516 J44.9 Chronic back pain 889486 002 G89.29 [id number] Pete Hobbs DO [facility]) [address] [place] [address] 06/01/2023 08:13:58 06/07/2023 22:11:26 Acute exacerbation of chronic obstructive pulmonary disease 075603999 J44.1 [id number] Pete Hobbs [facility]) [address] [place], [place] [address] 07/29/2023 09:07:56 08/11/2023 10:56:26 Urge incontinence of urine 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 N39.41 [id number] Pete Hobbs [facility]) [address] [place] [address] 5 08/24/2023 07:59:17 08/31/2023 13:30:20 Chronic obstructive pulmonary disease 54473368 J44.9 Chronic back pain 485596 002 G89.29 Anxiety 22250420 F41.9 [id number] Pete Hobbs [facility]) [address] [place] [address] 5 10/28/2023 11:27:29 11/01/2023 11:19:18 Acute exacerbation of chronic obstructive pulmonary disease 309139701 J44.1 [id number] Pete Hobbs [facility]) [address] [place], [place] [address] 12/21/2023 08:01:06 12/28/2023 17:41:52 Chronic back pain 132352550 G89.29 Chronic ob structive pulmonary disease 42720700 J44.9 Anxiety 72355379 F41.9 [facility] [id number] 0728598 Z74.1 [id number] Pete Faby [facility]) [address] [place], [place] [address] 01/25/2024 08:14:16 01/27/2024 13:45:26 Chronic obstructive pulmonary disease 97985291 J44.9 Anxiety 42062016 F41.9 [id number] Pete Hobbs [facility]) [address] [place], [place] [address] 02/08/2024 08:06:49 02/14/2024 16:27:00 Hospital inpatient stay within past 30 days 6913446036 106 Z76.89 Community acquired pneumonia 292078936 J18.9 Acute exac erbation of chronic obstructive pulmonary disease 356448748 J44.1 Acute urin natasha tract infection 200151960 N39.0 [id number] Pete Hobbs DO [facility] ([facility]) [address] [place], [place] [address] 02/22/2024 07:48:02 02/23/2024 20:11:29 Chronic obstructive pulmonary disease 78919523 J44.9 Chronic back pain 234260 002 G89.29 Anxiety 27595534 F41.9 [id number] Pete Hobbs DO [facility] ([facility]) [address] [place], [place] [address] 03/21/2024 08:02:53 03/28/2024 10:32:50 Chronic obstructive pulmonary disease 74298583 J44.9 Anxiety 37339959 F41.9 Chronic back pain 674927 002 G89.29 [id number] Pete Hobbs DO [facility] ([facility]) [address] [place] [address] 5 06/27/2024 08:06:18 06/27/2024 16:34:34 Chronic obstructive pulmonary disease 98665850 J44.9 Chronic back pain 399802 002 G89.29 Anxiety 28872583 F41.9 Recurrent falls 20706401 2 R29.6 [id number] Pete Hobbs DO [facility] ([facility]) [address] [place], [place] [address] 08/01/2024 08:02:12 08/01/2024 16:40:02 Hospital inpatient stay within past 30 days 1940887154 106 Z76.89 Metabolic encephalopathy 85465918 G93.41 Hyponatremia 16123763 E8 7.1 Acute urin natasha tract infection 866056849 N39.0 [id number] Pete Hobbs DO [facility] ([facility]) [address] [place], [place] [address] 08/15/2024 08:04:48 08/15/2024 15:42:50 Chronic obstructive pulmonary disease 35061141 J44.9 Anxiety 65162795 F41.9 [id number] Pete Hobbs DO [facility] ([facility]) [address] [place], [place] [address] 09/05/2024 08:43:20 09/05/2024 16:29:44 Chronic back pain 178633503 G89.29 Anxiety 67376124 F41.9 [id number] Pete Hobbs DO [facility] ([facility]) [address] [place], [place] [address] 09/28/2024 08:24:02 2024 11:32:43 Chronic back pain 164223046 G89.29 Chronic ob structive pulmonary disease 51192101 J44.9 Anxiety 66676060 F41.9 [id number] Pete Hobbs DO [facility] ([facility]) [address] [place], [place] [address] 12/18/2024 14:09:58 12/25/2024 08:31:39 Chronic back pain 654823290 G89.29 Chronic ob structive pulmonary disease 03040186 J44.9 Anxiety 58948358 F41.9 [id number] Pete Hobbs DO [facility] ([facility]) [address] [place], [place] [address] 02/05/2025 10:14:48 02/06/2025 12:23:11 Chronic back pain 528804462 G89.29 Chronic ob structive pulmonary disease 95354377 J44.9 Anxiety 67337970 F41.9 Need for [facility] care assistance [id number] 9798597 Z74.1 [id number] Pete Hobbs DO [facility] ([facility]) [address] [place] [address] 03/19/2025 15:12:02 03/20/2025 16:08:34 Chronic obstructive pulmonary disease 33116228 J44.9 Acute confusion 38258816 0 R41.0 59079 Anxiety 12182042 F41.9 [id number] Pete Hobbs [facility] ([facility]) [address] [place] [address] 03/26/2025 10:30:24 04/04/2025 07:38:41 Acute confusion 700626085 R41.0 [id number] Chronic ob structive pulmonary disease 28605477 J44.9 Anxiety 03326223 F41.9 Chronic back pain 451313 002 G89.29 [id number] Pete Hobbs DO [facility] ([facility]) [address] [place] [address] 04/12/2025 07:58:48 04/17/2025 14:55:17 Chronic obstructive pulmonary disease 56632841 J44.9 Anxiety 03187608 F41.9 [id number] Pete HobbsDO [facility] ([facility]) [address] [place] [address] 05/30/2025 10:41:53 06/13/2025 16:05:43 [id number] Pete HobbsDO [facility] ([facility]) [address] [place] [address] 06/21/2025 07:53:36 06/25/2025 15:16:23 Chronic obstructive pulmonary disease 38730632 J44.9 Confusional state 167530 003 R41.0 83154 [id number] Pete HobbsDO [facility] ([facility]) [address] [place] [address] 08/16/2025 13:56:59 08/21/2025 11:46:11 Chronic obstructive pulmonary disease 64909591 J44.9 Anxiety 33020519 F41.9 Chronic back pain 851633 002 G89.29 Health Concerns Section Related Observation LastModified by Organization Detai ls LastModified Time None Recorded Concern Status LastModified by Organization Details LastModified Time None Recorded Advance Directives Directive None Recorded Payers Insurance Date Sequence Insurance Name Policy Number Policy Heller Covered Member ID Heller Member ID Guarantor Name 08/16/2025 [place] A - [facility] (MEDICARE) Erin S Chu [id number] Erin Chu 08/21/2025 [place] [facility] (INSTIT[place]) Erin S Chu [id number] Erin Chu 08/16/2025 1 [place] Erin S Chu [id number] Erin Chu 08/16/2025 2 [place] Erin S Chu [id number] Erin Chu Notes Date Note Type Note Provider Name and Address Organization Details Recorded Time 5 text/html COPDReported by CaregiverHPI:For onset/timing, caregiver reportsintermittent. For duration, caregiver reportschronicandhas noted for years. For severity, caregiver reportssevere. For alleviating factors, caregiver reportsrelieved with rest,relieved with oxygen, andrelieved with bronchodilator. For associated symptoms, caregiver reportsno obesity.ROS as noted in the HPI Moved to SNF from [facility] due to continued confusion and decline in ability to care for self. Pete HobbsDO [address] [place] [address], [phone], [facility] 04/03/2025 14:14:19 5 text/html COPDReported by CaregiverHPI:For onset/timing, caregiver reportsintermittent. For duration, caregiver reportschronicandhas noted for years. For severity, caregiver reportssevere. For alleviating factors, caregiver reportsrelieved with rest,relieved with oxygen, andrelieved with bronchodilator. For associated symptoms, caregiver reportsno obesity.ROS as noted in the HPI Adjusting well to SNF. No complaints per staff or pt. Pete Hobbs [address] [place] [address], [phone], [facility] 04/16/2025 17:56:31 5 text/html COPDReported by CaregiverHPI:For onset/timing, caregiver reportsintermittent. For duration, caregiver reportschronicandhas noted for years. For severity, caregiver reportssevere. For alleviating factors, caregiver reportsrelieved with rest,relieved with oxygen, andrelieved with bronchodilator. For associated symptoms, caregiver reportsno obesity.ROS as noted in the HPI staff reports increased confusion. Pete Hobbs [address] [place] [address], [phone], [facility] 06/24/2025 13:56:47 5 text/html COPDReported by CaregiverHPI:For onset/timing, caregiver reportsintermittent. For duration, caregiver reportschronicandhas noted for years. For severity, caregiver reportssevere. For alleviating factors, caregiver reportsrelieved with rest,relieved with oxygen, andrelieved with bronchodilator. For associated symptoms, caregiver reportsno obesity.ROS as noted in the HPI no complaints per staff or patient. Pete Hobbs DO [address] [place] [address], [phone], [facility], Edward 08/17/2025 16:57:55 OBGyn Episode No OBEpisode recorded.
--- OUTSIDE RECORDS SUMMARY | 2025-08-30 18:12 | XMS_ITS | Clinical Summary ---
Author Organization [facility] Address [address] [place] [address] Care Team Providers Care Coiler Operator Name Role Phone Max Curtis DO Primary Care Provider [phone] Allergies No known active allergies Medications gabapentin (NEURONTIN) 400 mg capsule Take 400 mg by mouth 3 times daily. Active Lumigan 0.01 % solution INSTILL 1 DROP INTO EACH EYE IN THE EVENING 07/13/2020 Active citalopram (CeleXA) 20 mg tablet TAKE 1 TABLET BY MOUTH ONCE DAILY FOR MOOD 07/21/2020 Active Active Problems No known active problems Family History Medical History Relation Name Comments Healthy Brother No Known Problems Father Pacemaker Mother Healthy Sister Relation Name Status Comments Brother Father Mother Sister Social History Tobacco Use Types Packs/Day Years Used Date Smoking Tobacco: Some Days Cigarettes 0.3 70 Smokeless Tobacco: Never Comments Unknown Sex and Gender Information Value Date Recorded Sex Assigned at Not on file Legal Sex Female 10:05 AM CDT Gender Identity Not on file Sexual Orientation Not on file Last Filed Vital Signs Vital Sign Reading Time Taken Comments Blood Pressure 121/73 08/28/2020 1:33 PM CHEESE WEIGHER Pulse 83 08/28/2020 1:33 PM CHEESE WEIGHER Temperature - - Respiratory Rate - - Oxygen Saturation 90% 08/28/2020 1:33 PM CHEESE WEIGHER Inhaled Oxygen Concentration - - Weight 33.6 kg (74 lb) 08/28/2020 1:33 PM CHEESE WEIGHER Height 152.4 cm (5') 08/28/2020 1:33 PM CHEESE WEIGHER Body Mass Index 14.45 08/28/2020 1:33 PM CHEESE WEIGHER Plan of Treatment Health Maintenance Due Date Last Done Comments DTAP/TDAP/TD VACCINES (1 - Tdap) 1955 PNEUMOCOCCAL VACCINE 50+ YEARS (1 of 2 - PCV) 10/02/19 55 ZOSTER VACCINE (1 of 2) 1986 OSTEOPOROSIS SCREENING 2001 RSV VACCINE (60+ or ) (1 - 1-dose 75+ series) 2011 INFLUENZA VACCINE (#1) [id number] [place] [id number] MEDICARE PART A AND B [employer] Care Teams Coiler Operator Relationship Specialty Start Date End Date Max Curtis DO PCP - General Family Practice 08/28/20
[2025-08-30 19:01] LABS: Glucose Urine UA Negative (Normal); Nitrate Urine Negative (Negative); Specific Gravity, Urine 1.018 (1.005-1.030)
[2025-08-30 19:06] LABS: Add Urine Microscopic? YES
[2025-08-30] MEDS: cefTRIAXone 1,000 MG in water for injection-sterile 2.1 ML 2.1 MG IM (19:52)
[2025-08-30 19:54] VITALS: BP 128/68; PULSE 81; RESP 16; O2SAT 96
== END 2025-08-30 19:55 | disposition home or self-care (01) ==
PROVIDERS: Emergency Provider Physician Assistant; PCP Internal Medicine
DX: R26.89 Other abnormalities of gait and mobility (principal); S01.81XA Laceration without foreign body of other part of head, initial encounter; R82.81 Pyuria; F17.210 Nicotine dependence, cigarettes, uncomplicated; H61.899 Other specified disorders of external ear, unspecified ear; M25.551 Pain in right hip; W19.XXXA Unspecified fall, initial encounter; J44.9 Chronic obstructive pulmonary disease, unspecified
CPT/HCPCS: 70450; 72125; 73502; 81001; 87086; 96372; 99284; J0696; J9999